=== PATIENT | female | born 1975 | race Caucasian/White ===

== ENCOUNTER → 2020-03-31 | Outpatient (CLI) | payer OTHER ==
[2020-03-31 09:19] VITALS: BP 125/78; PULSE 71; RESP 18; TEMP 98.2
--- NOTE | 2020-03-31 10:58 | P.GSHP ---
History of Present Illness H&P Date: 03/31/20 Chief Complaint: right breast cancer, stage 1A right breast invasive ductal cancer [id number] Sulema is a 44 year old white female with a biopsy proven right breast cancer at the 3 oclock position. She is seen in consultation for Dr. Cisneros. She states that she recently felt some increased fullness in her right breast in the lower inner quadrant area. A bilateral mammogram was done in February the left breast remains stable however, additional views were requested of the right breast as well as an ultrasound. On the ultrasound a 1.7 x 1.3 x 1.1 cm lesion was noted in the approximately 4 to 5 o'clock position. Core biopsy of this was performed and it was positive for invasive ductal carcinoma. The lesion is ER/NE positive, HER-2 pending and grade 2. The patient gets mammograms every 6 months for the past three years for screening. She has never had a biopsy until now. She has not had any trauma or infection in the past. She is not complaining of any pain or nipple discharge. Caffeine: coffee 4 cups/day Nicotine: stopped 1 week ago, 1 pack/2 weeks for 15 years theobromine: daily hormones: none; had a hysterectomy and one ovary done for endometriosis at 41 Family History: mother: lung and brain cancer, she was a smoker maternal aunt: breast cancer maternal aunt: ovarian cancer Hormonal History: menarche: 11 Miscarriage 1, breast fed: no, age at first : 33 hysterectomy at 41 for endometriosis control pills: 25 years hormones: none Surgical history: Hysterectomy and one ovary removed for endometriosis 3 laparoscopic exams prior to hysterectomy Appendectomy Medical history: none Social History: nicotine: Used to smoke 1 pack every 2 weeks for 15 years but stopped approximately a week ago Alcohol: 1 glass of wine/day drugs: none - Constitutional Constitutional: Reports sweats - EENT Eyes: bilateral as per HPI, denies pain Ears: right: tinnitus, deny: decreased hearing Ears, nose, mouth and throat: Reports headache - Breasts Breasts: bilateral: as per HPI - Cardiovascular Cardiovascular: Denies chest pain, Denies shortness of breath - Respiratory Comment: former smoker Respiratory: Denies cough, Denies 7 - Gastrointestinal Comment: GERD Gastrointestinal: Reports constipation, Denies abdominal pain, Denies diarrhea, Denies nausea, Denies vomiting - Genitourinary (Female) Genitourinary: Denies dysuria, Denies hematuria - Menstruation Menstruation: Reports post hysterectomy - Musculoskeletal Musculoskeletal: Reports myalgias - Integumentary Integumentary: Reports rash - Neurological Neurological: Denies numbness, Denies weakness - Psychiatric Psychiatric: Reports anxiety, Denies depression - Endocrine Endocrine: Reports weight change - Hematologic/Lymphatic Comment: none - Allergic/Immunologic Allergic/Immunologic: Reports seasonal allergies Past Medical History History of Any Multi-Drug Resistant Organisms: None Reported Smoking Status: Current some day smoker Medications and Allergies Home Medications Medication Instructions Recorded Confirmed Type Duterra Essential Oil 1 tab PO DAILY 03/31/20 03/31/20 History Fish Oil/Dha/Epa [Fish Oil 1,200 1 each PO DAILY 03/31/20 03/31/20 History mg Fish Oil] Multivit with Calcium,Iron,Min 1 each PO DAILY 03/31/20 03/31/20 History [Women's Multivitamin] Allergies Allergy/AdvReac Type Severity Reaction Status Date / Time codeine Allergy Swelling Unverified 03/31/20 09:15 Sulfa (Sulfonamide Allergy Swelling Unverified 03/31/20 09:15 Antibiotics) Surgical - Exam Vital Signs Temp Pulse Resp BP Pulse Ox 98.2 F 71 18 125/78 98 03/31/20 09:15 03/31/20 09:15 03/31/20 09:15 03/31/20 09:15 03/31/20 09:15 BMI 32.4 - General well developed, well nourished, no distress - Eyes normal ocular movement - ENT normal pinna, normal mucosa - Neck no masses, trachea midline - Respiratory normal expansion, normal respiratory effort - Cardiovascular Rhythm: regular Heart Sounds: normal: S1, S2 - Abdomen Abdomen: soft - Integumentary normal turgor - Neurologic no disoriented, no combative - Musculoskeletal normal gait - Psychiatric oriented to time, oriented to person, oriented to place, speech is normal, memory intact breast exam: BRA: 38D inspection: bilateral grade 2/3 ptosis, right breast ecchymosis approximately 4 o'clock position palpation: right breast: Multi-positional exam dense breast, fibrocystic changes, fullness lower inner quadrant, ecchymosis possible small hematoma Right axilla: No adenopathy of concern left breast: Multiple positional exam dense breasts, no dominant masses or nodules of concern Left axilla: No adenopathy of concern Results Mammogram and ultrasound reviewed with radiology Assessment and Plan Assessment: Impression: 1. Stage IA right breast cancer lower inner quadrant 2. Fibrocystic breast changes 3. Family history of breast cancer 4. Probable perimenopausal/patient status post hysterectomy Plan: 1. genetic testing 2. Presentation of case at tumor board 3. Surgical options discussed with the patient 4. appointment with plastic surgery 5. medical clearance Dr. Cisneros 6. schedule for surgery The results of the biopsy were discussed with the patient. Surgical options such as lumpectomy and radiation versus mastectomy plus or minus reconstruction were discussed with the patient. At this time we are scheduling an appointment with plastic surgery. The patients case is going to be presented at tumor board. I've also suggested genetic testing and this is going to be performed. Depending on the results of genetic testing the patient will decide whether she would rather have a lumpectomy or mastectomy and this will be scheduled in the near future. Cc: Dr. Cisneros encounter 50 minutes, > 50% of time in planning and counselling
== END | disposition home or self-care (01) ==
LOC: WWCWWP 08:41
PROVIDERS: ATTEND Surgery
DX: Z53.9 Procedure and treatment not carried out, unspecified reason (principal)

== ENCOUNTER → 2020-04-18 | Outpatient (CLI) | payer OTHER ==
--- NOTE | 2020-05-01 07:10 | BMR ---
EXAMINATION TYPE: MR breast BILAT wo/w con DATE OF EXAM: 04/18/2020 COMPARISON: Outside 3-D screening mammogram February 26, 2020 BI-RADS 0. Outside diagnostic 3-D right breast mammogram March 13, 2020 BI-RADS 0. Outside diagnostic right breast ultrasound March 13 BI-RADS 4 HISTORY: Right breast cancer on ultrasound-guided core biopsy March 20, 2020, lump in right breast. TECHNIQUE: A series of fat and water weighted images in the long and short axis views of both breasts are obtained in conjunction with dynamic contrast MRI with subtraction technique. The patient was i njected with 7.3 mL intravenous Gadavist gadolinium contrast. Three-dimensional and additional post processing imaging is created on independent workstation and reviewed during official interpretation of this study. FINDINGS: Heterogeneously dense fibroglandular tissue bilaterally in both breasts is redemonstrated. T2 and STIR-weighted images show some small scattered thin-walled cysts on background of heterogeneou sly dense tissue, slightly larger cysts in left breast versus right breast. Benign-appearing bilatera l axillary lymph nodes are seen. Dynamic postcontrast imaging shows no suspicious intermammary adenop athy bilaterally on delayed images. There is mild symmetric background enhancement noted. With regards to the left breast, no suspicious skin thickening is seen. A few small foci of enhanceme nt. No pathologic enhancement or enhancing mass is clearly identified. The chest wall is intact. With regards to the right breast there is artifact from biopsy clip overlying the anterior slight inf erior aspect of spiculated enhancing mass in the lower inner quadrant measuring 2.1 AP diameter x 1.7 cm transversely image 218 series 702. Craniocaudal length roughly 2.2 cm. No additional suspicious e nhancement or enhancing masses. Some small areas of glanular enhancement, largest laterally over righ t breast image 67 measures 7 x 4 mm. These show benign progressive enhancement on dynamic postcontras t imaging. No abnormal skin thickening. The chest wall is intact. Atelectatic change or scarring suspected in anterior right lung base. Incidental note is made of multiple small stones in gallbladder. IMPRESSION: MRI demonstration of biopsy-proven malignancy lower inner quadrant anteriorly right breas t measuring up to 2.2 cm in size on MRI. No multicentric malignancy identified. No MRI evidence for i nvasive malignancy in the left breast. BI-RADS 6 biopsy-proven cancer right breast. BI-RADS 2 benign findings left breast. Recommendation: Appropriate surgical and oncologic management of right breast malignancy.
== END | disposition home or self-care (01) ==
LOC: RADMRIMAIN 17:49
PROVIDERS: ATTEND Surgery
DX: R92.8 Other abnormal and inconclusive findings on diagnostic imaging of breast (principal)
CPT/HCPCS: 77049; C8937; A9585

== ENCOUNTER → 2020-05-01 | Outpatient (CLI) | payer OTHER ==
[2020-05-01 09:03] VITALS: BP 132/64; PULSE 67; RESP 18; TEMP 98.6
--- NOTE | 2020-05-01 09:58 | P.PN ---
Subjective Progress Note Date: 05/01/20 Principal diagnosis: invasive ductal cancer stage 1A right breast invasive ductal cancer [id number]-G2 Sulema is a 44 year old white female with a biopsy proven right breast cancer at the 3 oclock position. She is seen in consultation for Dr. Cisneros. She states that she recently felt some increased fullness in her right breast in the lower inner quadrant area. A bilateral mammogram was done in February the left breast remains stable however, additional views were requested of the right breast as well as an ultrasound. On the ultrasound a 1.7 x 1.3 x 1.1 cm lesion was noted in the approximately 4 to 5 o'clock position. Core biopsy of this was performed and it was positive for invasive ductal carcinoma. The lesion is ER/RI positive, HER-2 pending and grade 2. The patient gets mammograms every 6 months for the past three years for screening. She has never had a biopsy until now. She has not had any trauma or infection in the past. She is not complaining of any pain or nipple discharge. Genetic testing was done and this was negative. She was seen by medical oncology DR. Childress she was located in [facility], however patient wishes her care to be closer to home and has an appointment with Dr. Contreras next week. An MRI was performed on . This revealed biopsy-proven right breast cancer, and benign findings in the left breast. No multicentric malignancy was identified. It is felt that the patient after the procedure will have an Oncotype DX performed on the tumor to determine whether or not she would need any chemotherapy. Because this is hormone receptor positive she will be recommended to have hormonal therapy. The radiation therapy would be recommended if she chose a lumpectomy, and if she were to choose a mastectomy there is a remote chance she would also need radiation. Caffeine: coffee 4 cups/day Nicotine: stopped 1 week ago, 1 pack/2 weeks for 15 years theobromine: daily hormones: none; had a hysterectomy and one ovary done for endometriosis at 41 Family History: mother: lung and brain cancer, she was a smoker maternal aunt: breast cancer maternal aunt: ovarian cancer Hormonal History: menarche: 11 Miscarriage 1, breast fed: no, age at first : 33 hysterectomy at 41 for endometriosis control pills: 25 years hormones: none Surgical history: Hysterectomy and one ovary removed for endometriosis 3 laparoscopic exams prior to hysterectomy Appendectomy Medical history: none Social History: nicotine: Used to smoke 1 pack every 2 weeks for 15 years but stopped approximately a week ago Alcohol: 1 glass of wine/day drugs: none - Constitutional Constitutional: Reports sweats - EENT Eyes: bilateral as per HPI, denies pain Ears: right: tinnitus, deny: decreased hearing Ears, nose, mouth and throat: Reports headache - Breasts Breasts: bilateral: as per HPI - Cardiovascular Cardiovascular: Denies chest pain, Denies shortness of breath - Respiratory Comment: former smoker Respiratory: Denies cough - Gastrointestinal Comment: GERD Gastrointestinal: Reports constipation, Denies abdominal pain, Denies diarrhea, Denies nausea, Denies vomiting - Genitourinary (Female) Genitourinary: Denies dysuria, Denies hematuria - Menstruation Menstruation: Reports post hysterectomy - Musculoskeletal Musculoskeletal: Reports myalgias - Integumentary Integumentary: Reports rash - Neurological Neurological: Denies numbness, Denies weakness - Psychiatric Psychiatric: Reports anxiety, Denies depression - Endocrine Endocrine: Reports weight change - Hematologic/Lymphatic Comment: none - Allergic/Immunologic Allergic/Immunologic: Reports seasonal allergies Objective - Vital Signs Vital signs: Vital Signs Temp 98.6 F 05/01/20 09:01 Pulse 67 05/01/20 09:01 Resp 18 05/01/20 09:01 BP 132/64 05/01/20 09:01 Pulse Ox 97 05/01/20 09:01 Intake & Output 04/30/20 05/01/20 05/01/20 18:59 06:59 18:59 Weight 81.647 kg - Exam BMI 31.9 - Constitutional General appearance: Present: average body habitus - EENT Eyes: Present: EOMI ENT: Present: hearing grossly normal - Neck Neck: Present: normal ROM - Respiratory Respiratory: bilateral: CTA - Cardiovascular Rhythm: regular Heart sounds: normal: S1, S2 - Gastrointestinal General gastrointestinal: Present: normal bowel sounds, soft - Integumentary Integumentary: Present: normal turgor - Musculoskeletal Musculoskeletal: Present: gait normal - Psychiatric Psychiatric: Present: A&O x's 3, appropriate affect, intact judgment & insight - Additional findings Additional findings: Breast exam: BRA: 38D inspection: right breast larger than left breast, bilateral grade 2/3 ptosis palpation: Right breast: Multiple positional exam approximately 2 cm mass in the lower inner quadrant, no other dominant masses or nodules of concern, fibrocystic changes Right axilla: No adenopathy of concern Left breast: Multiple positional exam fibrocystic changes, no dominant masses or nodules of concern Left axilla: No adenopathy of concern Assessment and Plan Assessment: Impression: 1. Stage IA right breast cancer lower inner quadrant 2. Genetic testing negative 3. MRI does not show multifocal disease 4. Patient did not meet with plastic surgery, she opted not to have reconstruction if she were to choose a bilateral mastectomy Plan: 1. Right breast needle localization partial mastectomy, sentinel node injection, sentinel node biopsy, possible axillary node dissection, mastopexy, onco-plastic tissue transfer The risks and benefits of the procedure were discussed with the patient. Risks include but are not limited to bleeding, infection, reaction to the anesthetic. If margins were to be positive she would need a reexcision. Additionally sentinel node biopsy will be performed if sentinel nodes were to be positive she would with Radiation to the axilla and/or possibly return to the operating room for removal of more lymph nodes. The patient understands these things and wishes to proceed. Again after discussion she has opted for a lumpectomy rather than a mastectomy. CC: Dana Bradley N.P. encounter 45 minutes time spent in physical examination, reviewing medical records, and counseling.
== END | disposition home or self-care (01) ==
LOC: WWCWWP 08:50
PROVIDERS: ATTEND Surgery
DX: Z53.9 Procedure and treatment not carried out, unspecified reason (principal)

== ENCOUNTER 2020-05-06 11:26 | Day surgery (SDC) | payer OTHER ==
[2020-04-30 15:26] VITALS: BMI 31.8
[~2020-05-06 11:26] MED LIST: DEXAMETHASONE SOD PHOSPHATE 4 MG/ML 1 ML VIAL IV ONE; HEPARIN SODIUM,PORCINE 5,000 UNIT/ML 1 ML VIAL SQ PRN; LACTATED RINGERS 1,000 ML IV SCH; LIDOCAINE 1% (10MG/ML) FOR IV START INTRADERMA PRN; Pre Op ABX Message 1 EACH MISC MISCELLANE ONE
[2020-05-06 11:47] VITALS: RESP 16
[2020-05-06] MEDS ORDERED: ALPRAZolam 0.5 MG TAB ONE (11:54)
[2020-05-06] MEDS ORDERED: ALPRAZolam 0.5 MG TAB PO ONE (11:56)
[2020-05-06] MEDS ORDERED: LIDOCAINE 1% INJ 10MG/ML (20 ML MDV) SQ ONE (12:32)
--- NOTE | 2020-05-06 12:35 | P.NAPBC ---
NAPBC Queries - NAPBC Queries Was patient's case review presented at [facility] tumor board? If no, comment.: Yes Was patient's pathology reviewed at [facility]? If no, comment.: Yes Was breast conservation surgery offered? If no, comment.: Yes Was sentinel node biopsy offered? If no, comment.: Yes Was diagnosis confirmed by percutaneous core biopsy? If no, comment.: Yes Is patient mastectomy patient?: No Was a preop referral to reconstructive surgeon offered?: Yes Clinical Stage: stage IA
[2020-05-06] MEDS ORDERED: LIDOCAINE 1% INJ 10MG/ML (20 ML MDV) ONE (13:15)
[2020-05-06] MEDS ORDERED: PROPOFOL 10 MG/ML 20 ML VIAL IV ONE (13:15)
[2020-05-06] MEDS ORDERED: SUCCINYLCHOLINE CHLORIDE 100 MG/5 ML SYR IV ONE (13:15)
[2020-05-06] MEDS ORDERED: MIDAZOLAM 2 MG/2 ML VIAL ONE (13:15)
[2020-05-06] MEDS ORDERED: HYDROmorphone (PF) 1 MG/ML ONE (13:15)
[2020-05-06] MEDS ORDERED: fentaNYL (PF) 50 MCG/ML 2 ML AMP ONE (13:15)
[2020-05-06] MEDS: ONDANSETRON 4 MG/2 ML VIAL IVP ONE ×2 (13:21→16:59)
[2020-05-06] MEDS ORDERED: SODIUM CHLORIDE 0.9% 50 ML with ceFAZolin 2,000 MG IV ONE ×2 (13:52)
--- NOTE | 2020-05-06 14:10 | NM ---
EXAMINATION TYPE: NM sentinel node injection DATE OF EXAM: 05/06/2020 COMPARISON: NONE INDICATION: Abnormal mammogram. Informed consent was obtained. A timeout was performed. The area around the right nipple was cleansed with alcohol. In a single dose, a total of 500 uCi Te chnetium 99m Tilmanocept was injected. The patient tolerated the procedure very well. IMPRESSIONS: 1. Successful injection for sentinel node evaluation.
[2020-05-06] MEDS ORDERED: LACTATED RINGERS 1,000 ML IV ONE (15:05)
--- NOTE | 2020-05-06 16:40 | P.OP ---
Date of Procedure: 05/06/20 Preoperative Diagnosis: right breast invasive ductal carcinoma Postoperative Diagnosis: Same Procedure(s) Performed: Right breast sentinel node biopsy, needle localization excisional lumpectomy, new margins obtained anterior, medial, superior, and inferior, onco-plastic tissue transfer 68 cm, donut mastopexy Anesthesia: VICENTE Surgeon: Krys Leon Estimated Blood Loss (ml): 20 IV fluids (ml): 1,100 Pathology: other ([place] node, breast tissue) Condition: stable Disposition: same day Indications for Procedure: Right breast invasive ductal carcinoma Operative Findings: Dense breast tissue Description of Procedure: 1. [place] node biopsy of deep no right axilla 2. Needle localization lumpectomy right breast 3. Margins evaluated and new margins obtained anterior medial superior and inferior, posterior dissection was onto the chest wall 4. onco-plastic tissue transfer 68 cm 5. Donut mastopexy And is a 45-year-old white female who was diagnosed with a right breast invasive ductal carcinoma via the biopsy. After preoperative consultation she wished to undergo lumpectomy if possible. The patient was first seen in radiology for injection for sentinel node was performed. Additionally the needle was placed for localization of the tumor. She was then brought to the operative suite. Following induction of anesthesia interrogation of the axilla revealed that the radiotracer had traveled to this site. The right breast and axilla were then prepped and draped in a sterile fashion. The axilla was approached initially. Using the neoprobe the area of greatest radioactivity was identified. An incision was made and the dissection was carried to the deep axillary tissue. The deep axillary node was identified which was radioactive. The node was removed using the Harmonic scalpel. Following this the 10 second count was noted to be 1800 on the node. The background 10 second count was noted to be 21 at 10 seconds. The axilla was carefully evaluated for hemostasis. The deep tissues were closed using 3-0 Vicryl suture. The skin was closed using a 3-0 Vicryl subcutaneous stitch followed by a 4-0 Monocryl. Steri-Strips were applied. The area of the breast was then approached. A donut mastopexy incision placement was marked in the preoperative area. The new nipple areolar complex was to be elevated approximately 2 cm. This is an eccentric donut mastopexy. The skin was de-epithelialized. The rest tissue was entered and the medial and superior aspect of the de-epithelialized tissue. Careful dissection was performed down to the shaft of the needle and surrounding tissue was excised. This tissue was approximately 8 x 5 cm in size. The patient was painted for orientation. Radiograph of the specimen revealed the area of concern had been removed. It was felt that the margins were close anteriorly and medially superiorly and inferiorly. Therefore the margins were obtained in all of these sites and these were painted for orientation. Following this the cavity was then evaluated for hemostasis. Titanium clips were used to silas the cavity. After we were assured that hemostasis was attained the superior pedicle was mobilized 5 cm x 2 cm for 10 centimeters squared. The inferior pedicle was likewise mobilized 5 cm x 2 cm to 10 cm. The total onco plastic tissue mobilization was 68 square centimeters. The deep tissues were brought together using 3-0 Vicryl suture after assured that hemostasis was attained. Following this the subcutaneous tissue was closed using a 3-0 Vicryl suture. A wagon wheel running 4 [place] was placed. Following this a 4-0 Monocryl subcuticular suture was placed. This was followed by a 4-0 nylon suture. The patient tolerated the procedure in stable condition. All instrument and sponge counts were correct at the end of the case.
--- NOTE | 2020-05-06 16:41 | P.DS ---
Providers Attending physician: Krys Leon Primary care physician: Anirudh Cisneros Plan - Discharge Summary Discharge Rx Participant: Yes New Discharge Prescriptions: No Action Duterra Essential Oil 1 tab PO DAILY Multivitamins, Thera [Multivitamin (formulary)] 1 tab PO DAILY Atorvastatin [Lipitor] 40 mg PO HS Moh[place]-3 Fatty Acids [[place]-3] 1,000 mg PO DAILY Discharge Medication List Duterra Essential Oil 1 tab PO DAILY 03/31/20 [History] Atorvastatin [Lipitor] 40 mg PO HS 04/30/20 [History] Multivitamins, Thera [Multivitamin (formulary)] 1 tab PO DAILY 04/30/20 [History] [place]-3 Fatty Acids [[place]-3] 1,000 mg PO DAILY 04/30/20 [History] Follow up Appointment(s)/Referral(s): Krys Leon MD [STAFF PHYSICIAN] - 1 Week Activity/Diet/Wound Care/Special Instructions: do not drive for 24 hours wear bra at all times may shower after 48 hours Discharge Disposition: HOME SELF-CARE
[2020-05-06 16:45] VITALS: TEMP 97
[2020-05-06] MEDS ORDERED: HYDROmorphone 0.5 MG/0.5 ML SYRINGE IVP ONE (16:56)
[2020-05-06] MEDS ORDERED: HYDROcodone/APAP 5-325MG 1 EACH TAB PO ONE (17:30)
[2020-05-06] MEDS ORDERED: HYDROcodone/APAP 5-325MG 1 EACH TAB ONE (17:31)
[2020-05-06 17:53] VITALS: BP 131/85; PULSE 78
--- NOTE | 2020-05-06 17:59 | MM ---
EXAMINATION TYPE: MG pre op needle loc RT DATE OF EXAM: 05/06/2020 COMPARISON: Digital mammogram 03/20/2020, MRI report 04/18/2020 CLINICAL HISTORY: Invasive ductal carcinoma TECHNIQUE: Needle localization with wire placement and surgical excision of area of concern in the right breast. FINDINGS: The procedure of needle localization with wire placement for surgical excision was explained to the patient. Risk, benefits, and alternatives were discussed. An informed consent was then obtained. A timeout was performed. The overlying skin was prepped and draped in usual sterile fashion. Lidocaine 1% was used as anesthetic into the skin and subcutaneous tissue up to the level of area of concern. A 7 cm needle was used. This was placed via a medial approach under mammographic guidance. Following the initial anesthetization patient had pain the needle reanesthetized with 1% lidocaine was performed. Placement needle at this time was painless. Subsequent 90 degrees mammogram show the needle to be in satisfactory position relative to the targeted area. The wire was placed through the needle and the needle was withdrawn. The wire was fixed to patient's skin. Images were marked for surgeon. Placement and approach were discussed with the referring physician in person. The patient tolerated the procedure well without any immediate complication. Specimen: The wire and the targeted core marker are identified within the specimen mammogram. IMPRESSION: 1. Successful wire localization and excision. Recommendations: 1. Recommendations are pending pathology results. Pathology Results: Malignant A. SENTINEL LYMPH NODE, RIGHT BREAST, BIOPSY: Lymph node negative for metastasis. CK7 and DARLING immunoperoxidase stains are confirmatory (controls appropriate). B. PALPABLE LYMPH NODE, RIGHT BREAST, BIOPSY: Lymph node negative for metastasis. C. RIGHT BREAST, NEW ANTERIOR MARGIN, EXCISION: Benign breast with fibrocystic changes. D. RIGHT BREAST, NEW MEDIAL MARGIN, EXCISION: Benign breast tissue. E. RIGHT BREAST, NEW INFERIOR MARGIN, EXCISION: Benign breast tissue. F. RIGHT BREAST, NEW SUPERIOR MARGIN, EXCISION: Benign breast tissue with fibrocystic changes. G. RIGHT BREAST, LUMPECTOMY: Invasive moderately differentiated ductal carcinoma and Grade I-II DCIS, margins negative for invasive malignancy or DCIS. See Surgical Pathologic Cancer Case Summary. H. DE-EPITHELIALIZED TISSUE, RIGHT BREAST: Benign skin and subcutaneous tissue. Recommendation Surgical consult of the right breast. ANDRES
== END 2020-05-06 18:20 | disposition home or self-care (01) ==
LOC: OR 11:26
PROVIDERS: ATTEND Surgery
DX: C50.311 Malignant neoplasm of lower-inner quadrant of right female breast (principal); Z87.891 Personal history of nicotine dependence; E78.5 Hyperlipidemia, unspecified; E66.9 Obesity, unspecified; Z68.34 Body mass index [BMI] 34.0-34.9, adult; Z97.2 Presence of dental prosthetic device (complete) (partial); Z90.710 Acquired absence of both cervix and uterus; Z90.721 Acquired absence of ovaries, unilateral; Z90.89 Acquired absence of other organs; Z80.1 Family history of malignant neoplasm of trachea, bronchus and lung; Z80.3 Family history of malignant neoplasm of breast; Z80.41 Family history of malignant neoplasm of ovary; Z80.8 Family history of malignant neoplasm of other organs or systems; Z79.899 Other long term (current) drug therapy; Z88.5 Allergy status to narcotic agent; Z88.2 Allergy status to sulfonamides
CPT/HCPCS: 19301; 38525; 19316; 14301; 14302; 88305; 88342; 88307; 88341; 76098; 38792; A9520; J2250; J1644; J1100; J2405; J0690; J2001; J3010; J1170 ×2; J0330; J2704

== ENCOUNTER → 2020-05-15 | Outpatient (CLI) | payer OTHER ==
[2020-05-15 10:56] VITALS: BP 121/82; PULSE 73; RESP 18; TEMP 98
--- NOTE | 2020-05-15 11:14 | P.PN ---
Progress Note - Text Progress Note Date: 05/15/20 Sulema is a 45 year old white female status post right breast lumpectomy via a donut mastopexy incision and sentinel node biopsy. The lymph nodes were all negative, and the tumor was noted to be 2.2 cm in greatest dimension but all margins were negative. DCIS was present but was completely excised. Physical exam: Lungs clear: Heart: Regular rate and rhythm Incision: Incisions clean and dry, the right breast does appear to be swollen but no evident seroma to aspirate Impression: 1. Right breast lumpectomy and sentinel node biopsy on 3to21 patient doing well postoperative 2. Follow-up radiation oncology 3. Follow-up medical oncology 4. Follow up here in 1 weeks for suture removal 5. Continue to wear bra 6. Vitamin C and protein supplements Cc: Dr. Cisneros N.Cortney Pearce
== END ==
LOC: WWCWWP 10:43
PROVIDERS: ATTEND Surgery
DX: Z86.000 Personal history of in-situ neoplasm of breast (principal); Z51.0 Encounter for antineoplastic radiation therapy; Z79.899 Other long term (current) drug therapy; Z98.890 Other specified postprocedural states

== ENCOUNTER → 2020-06-19 | Outpatient (CLI) | payer OTHER ==
--- NOTE | 2020-06-19 11:44 | P.PN ---
Progress Note - Text Progress Note Date: 06/19/20 And is a 45-year-old white female status post right breast lumpectomy via donut mastopexy incision and sentinel node biopsy. This was performed and 3to21. The lymph nodes were all negative, and the tumor was noted to be 2.2 cm in greatest dimension but all margins were negative. DCIS was present but was completely excised. She was seen by medical oncology and an Oncotype DX test was ordered the results were 14 and she is not recommended to have chemotherapy. She was seen today in radiation oncology and noted to have a seroma in the right breast. She comes today for aspiration of the seroma. She was unable to be seen in the last several weeks secondary to the fact that she developed a cold that it wasn't quarantined. Physical exam: Incision clean and dry the right breast is swollen with evidence of a seroma at at this time. There is some mild ecchymosis the lower inner quadrant which is resolving. She does have some blistering of the periareolar incision at the medial aspect. Impression: 1. Right breast lumpectomy sentinel node biopsy and 32 21 2. Patient followed with radiation oncology today 3. Oncotype does not recommend chemotherapy secondary to low Oncotype score 4. Patient to have have his sutures removed 5. Continue to wear bra 6. Vitamin C and protein supplements The area of seroma in the left breast was recommended to be aspirated. The breast was prepped using alcohol. 18-gauge needle on a 20 mL syringe was used to aspirate the area. A brown fluid was a contained 40 mL with resolution of the seroma. The area of blistering on the periareolar incision was reinforced using a 4-0 nylon suture. The patient will have half of her sutures removed and Steri-Strips applied. She will follow up here next week.
== END ==
DX: L76.34 Postprocedural seroma of skin and subcutaneous tissue following other procedure (principal)

== ENCOUNTER → 2020-06-26 | Outpatient (CLI) | payer OTHER ==
--- NOTE | 2020-06-26 11:53 | P.PN ---
Progress Note - Text Progress Note Date: 06/26/20 And is a 45-year-old white female status post right breast lumpectomy via donut mastopexy incision and sentinel node biopsy. This was performed and 3to21. The lymph nodes were all negative, and the tumor was noted to be 2.2 cm in greatest dimension but all margins were negative. DCIS was present but was completely excised. She was seen by medical oncology and an Oncotype DX test was ordered the results were 14 and she is not recommended to have chemotherapy. She was seen today in radiation oncology and noted to have a seroma in the right breast. She came last week for aspiration of the seroma. She was unable to be seen in the last several weeks prior to this secondary to the fact that she developed COVID and was quarantined. Last week approximately 240 mL of fluid were aspirated from the lumpectomy site. Patient complains of some discomfort in her right arm. She also states that the lateral aspect of her right breast feels swollen. She has not had any fever or chills. She has not had any drainage from her incisions. Physical exam: Incision clean and dry the right with some mild swelling in the lateral aspect. There does appear to be a small seroma in the medial aspect. The blistering which was seen last week is resolved. right arm: 15 inches right forearm: 15 inches left arm: 14 1/4 left forearm: 11 14 Impression: 1. Right breast lumpectomy sentinel node biopsy on 2. Patient followed with radiation oncology next week 3. Oncotype does not recommend chemotherapy secondary to low Oncotype score 4. Patient had 1/2 sutures removed 5. Continue to wear bra 6. Vitamin C and protein supplements 7. Attempted aspiration of seroma right breast 8. Ultrasound of the right breast lateral aspect to see if there is any seroma which would warrant aspiration The area of seroma in the left breast was recommended to be aspirated. The breast was prepped using alcohol. 18-gauge needle on a 20 mL syringe was used to aspirate the area. A brown fluid was a contained 35 mL with resolution of the seroma. She will follow up here next week.
[2020-06-26 13:07] VITALS: BP 128/82; PULSE 78; RESP 18; TEMP 98.3
--- NOTE | 2020-06-27 10:56 | USB ---
Reason for exam: clinical finding. History: Patient has history of breast cancer at age 45. Lumpectomy of the right breast, May 12, 2020. Malignant MG pre op needle loc RT of the right breast, May 06, 2020. US Breast Limited RT Right complete breast ultrasound includes all four quadrants, the retroareolar region and axilla. Finding demonstrates a 2.3 x 1.3 x 4.4cm oval, lobular, fluid collection at 4 o'clock, thin walled with internal echoes nonspecific suspect small post surgical seroma. These results were verbally communicated with the patient and result sheet given to the patient on 06/26/20. ASSESSMENT: Benign, BI-RAD 2 RECOMMENDATION: Clinical management of the right breast. Manage patient on a clinical basis.
== END | disposition home or self-care (01) ==
LOC: WWCWWP 11:27
PROVIDERS: ATTEND Surgery
DX: L76.34 Postprocedural seroma of skin and subcutaneous tissue following other procedure (principal); Z85.3 Personal history of malignant neoplasm of breast

== ENCOUNTER → 2020-07-04 | Outpatient (CLI) | payer OTHER ==
[2020-07-04 14:10] VITALS: BP 131/84; PULSE 67; RESP 18; TEMP 98.2
--- NOTE | 2020-07-04 14:22 | P.PN ---
Progress Note - Text Progress Note Date: 07/04/20 And is a 45-year-old white female status post right breast lumpectomy via donut mastopexy incision and sentinel node biopsy. This was performed and 3221. The lymph nodes were all negative, and the tumor was noted to be 2.2 cm in greatest dimension but all margins were negative. DCIS was present but was completely excised. She was seen by medical oncology and an Oncotype DX test was ordered the results were 14 and she is not recommended to have chemotherapy. She was seen by radiation oncology and noted to have a seroma in the right breast. She was seen for aspiration of the seroma. She was unable to be seen in the last several weeks prior to this secondary to the fact that she developed COVID and was quarantined. Approximately 240 mL of fluid were aspirated from the lumpectomy site. Last week approximately 35 mL of brown fluid was aspirated. She had an ultrasound performed as well which showed a very small fluid collection at the 4 o'clock position of the right breast. On to today's evaluation she does not have any evidence of recurrent seroma. Patient complained of some discomfort in her right arm. She also stated that the lateral aspect of her right breast feels swollen. She has not had any fever or chills. She has not had any drainage from her incisions. Physical exam: Incision clean and dry, no evidence seroma. Impression: 1. Right breast lumpectomy sentinel node biopsy on 2. Patient followed with radiation oncology 3. Oncotype does not recommend chemotherapy secondary to low Oncotype score 4. Patient remained her sutures removed 5. Continue to wear bra 6. Vitamin C and protein supplements 7. Attempted aspiration of seroma right breast no seroma present on today's examination 8. Follow-up 1 month An attempted aspiration of the seroma in the medial aspect of the breast was performed. Alcohol was used to clean the breast. A 21-gauge needle on an 12 mL syringe was inserted into the area of mild fluctuance no fluid was obtained.
== END ==
LOC: WWCWWP 13:52
PROVIDERS: ATTEND Surgery
DX: N63.10 Unspecified lump in the right breast, unspecified quadrant (principal); Z98.890 Other specified postprocedural states

== ENCOUNTER 2020-08-07 16:31 | Emergency (ER) | payer OTHER ==
[2020-08-07 16:38] VITALS: BP 132/78; PULSE 69; RESP 18; TEMP 97.9
[2020-08-07 17:33] LABS: Basophils % (A) 1 %; Eosinophils # (A) 0.1 k/uL (0-0.7); Eosinophils % (A) 2 %; HCT 41.7 % (34.0-46.0); HGB 14.8 gm/dL (11.4-16.0); Lymphocytes # (A) 1.1 k/uL (1.0-4.8); Lymphocytes % (A) 11 %; MCHC 35.5 g/dL (31.0-37.0); Mean Platelet Volume 6.9; Monocytes # (A) 0.4 k/uL (0-1.0); Monocytes % (A) 4 %; Neutrophils # (A) 7.9 k/uL (1.3-7.7); Neutrophils % (A) 82 %; Platelet Count 187 k/uL (150-450); RBC 4.64 m/uL (3.80-5.40); RDW 13.4 % (11.5-15.5); WBC 9.6 k/uL (3.8-10.6)
[2020-08-07 17:46] LABS: INR 0.9 (<1.2); Partial Thromboplastin Time 25.1 sec (22.0-30.0)
[2020-08-07] MEDS ORDERED: KETOROLAC 15 MG/ML 1 ML VIAL IVP STA (17:50)
[2020-08-07 17:51] LABS: ALT 66 U/L (4-34); AST 42 U/L (14-36); African American GFR (CKD) >90 (>60 ml/min/1.73 sqM); Albumin 4.8 g/dL (3.5-5.0); Alkaline Phosphatase 126 U/L (38-126); Anion Gap 10 mmol/L; Blood Urea Nitrogen 14 mg/dL (7-17); Carbon Dioxide 23 mmol/L (22-30); Chloride 103 mmol/L (98-107); Glucose 107 mg/dL (74-99); Non-African American GFR(CKD) >90 (>60 ml/min/1.73 sqM); Sodium 136 mmol/L (137-145); Total Bilirubin 0.3 mg/dL (0.2-1.3); Total Protein 7.9 g/dL (6.3-8.2)
--- NOTE | 2020-08-07 17:57 | CT ---
EXAMINATION TYPE: CT brain wo con DATE OF EXAM: 08/07/2020 COMPARISON: None HISTORY: Headache. CT DLP: 1114.4 mGycm. Automated Exposure Control for Dose Reduction was Utilized. TECHNIQUE: CT scan of the head is performed without contrast. FINDINGS: There is no acute intracranial hemorrhage, mass effect, or midline shift identified. The ventricles and sulci are within normal limits in size. There is mild cortical atrophy. Suspect ther e is patchy. Ventricular low attenuation. The globes are intact and the visualized sinuses are clear. IMPRESSION: No acute intracranial hemorrhage, mass effect, or midline shift is seen. Question some w louisa matter demyelination, cortical atrophy, brain MRI may be of benefit
--- NOTE | 2020-08-07 17:58 | ED ---
Headache HPI - General Chief Complaint: Headache Stated Complaint: Migraine Time Seen by Provider: 08/07/20 17:28 Source: patient, RN/MD, RN notes reviewed Mode of arrival: ambulatory Limitations: no limitations - History of Present Illness Initial Comments: Is a 45-year-old female history of a invasive ductal carcinoma of the right breast status post donut mastopexy who presents with complaints of right-sided headache some visual changes. She states this started 2 nights ago she was at a ball game when she got up and suddenly had some pain going down into the right side of her neck. He has some numbness her left fingertip she'll have since resolved but she was having some floaters which is since resolved and some visual problems the left side of her visual field which is since resolved. She states the headaches even getting better at this time no focal deficits or upper or lower extremities. She was seen by her doctor and sent here for further evaluation MD Complaint: headache - Related Data Previous Rx's Medication Instructions Recorded Ketorolac [Toradol] 10 mg PO Q6HR #20 tab 08/07/20 Orphenadrine [Norflex] 100 mg PO Q12H #7 tablet.er 08/07/20 Allergies Allergy/AdvReac Type Severity Reaction Status Date / Time codeine Allergy Swelling Verified 08/07/20 18:15 Sulfa (Sulfonamide Allergy Swelling Verified 08/07/20 18:15 Antibiotics) Review of Systems ROS Statement: Those systems with pertinent positive or pertinent negative responses have been documented in the HPI. ROS Other: All systems not noted in ROS Statement are negative. Past Medical History Past Medical History: Cancer, GERD/Reflux, Hyperlipidemia Additional Past Medical History / Comment(s): right breast cancer, psoriasis , states right forearm tender. History of Any Multi-Drug Resistant Organisms: None Reported Past Surgical History: Appendectomy, Hysterectomy Additional Past Surgical History / Comment(s): laparoscopy x3 Past Anesthesia/Blood Transfusion Reactions: No Reported Reaction, Motion Sickness Past Psychological History: Anxiety Smoking Status: Former smoker Past Alcohol Use History: Occasional Past Drug Use History: None Reported - Past Family History Mother Family Medical History: Cancer Additional Family Medical History / Comment(s): lung & brain cancer General Exam - General Exam Comments Initial Comments: This is a well-developed well-nourished awake alert oriented 3 female Limitations: no limitations General appearance: alert, in no apparent distress Head exam: Present: atraumatic, normocephalic, normal inspection Eye exam: Present: normal appearance, PERRL, EOMI. Absent: scleral icterus, conjunctival injection, periorbital swelling ENT exam: Present: normal exam, mucous membranes moist Neck exam: Present: normal inspection, tenderness (Tenderness to the left posterior lateral aspect of the neck musculature no spinous process tenderness to range of motion no stridor JVD or bruits). Absent: meningismus, lymphadenopathy Respiratory exam: Present: normal lung sounds bilaterally. Absent: respiratory distress, wheezes, rales, rhonchi, stridor Cardiovascular Exam: Present: regular rate, normal rhythm, normal heart sounds. Absent: systolic murmur, diastolic murmur, rubs, gallop, clicks GI/Abdominal exam: Present: soft, normal bowel sounds. Absent: distended, tenderness, guarding, rebound, rigid Extremities exam: Present: normal inspection, full ROM, normal capillary refill. Absent: tenderness, pedal edema, joint swelling, calf tenderness Back exam: Present: normal inspection Neurological exam: Present: alert, oriented X3, CN II-XII intact Psychiatric exam: Present: normal affect, normal mood Skin exam: Present: warm, dry, intact, normal color. Absent: rash Course Vital Signs 08/07/20 16:35 Temperature 97.9 F Pulse Rate 69 Respiratory 18 Rate Blood Pressure 132/78 O2 Sat by Pulse 99 Oximetry Medical Decision Making - Medical Decision Making I did discuss findings with the patient she is feeling improved she still has slight residual headache he does appear clinically to be a musculoskeletal origin. She'll be discharged and placed on appropriate medication we did a long discussion regarding this and she agrees with the current plan. - Lab Data Result diagrams: 08/07/20 17:23 08/07/20 17:23 Lab Results 08/07/20 08/07/20 08/07/20 Range/Units 17:23 17:23 17:23 WBC 9.6 (3.8-10.6) k/uL RBC 4.64 (3.80-5.40) m/uL Hgb 14.8 (11.4-16.0) gm/dL Hct 41.7 (34.0-46.0) % MCV 90.0 (80.0-100.0) fL MCH 32.0 (25.0-35.0) pg MCHC 35.5 (31.0-37.0) g/dL RDW 13.4 (11.5-15.5) % Plt Count 187 (150-450) k/uL MPV 6.9 Neutrophils % 82 % Lymphocytes % 11 % Monocytes % 4 % Eosinophils % 2 % Basophils % 1 % Neutrophils # 7.9 H (1.3-7.7) k/uL Lymphocytes # 1.1 (1.0-4.8) k/uL Monocytes # 0.4 (0-1.0) k/uL Eosinophils # 0.1 (0-0.7) k/uL Basophils # 0.0 (0-0.2) k/uL PT 10.0 (9.0-12.0) sec INR 0.9 (<1.2) APTT 25.1 (22.0-30.0) sec Sodium 136 L (137-145) mmol/L Potassium 4.0 (3.5-5.1) mmol/L Chloride 103 (98-107) mmol/L Carbon Dioxide 23 (22-30) mmol/L Anion Gap 10 mmol/L BUN 14 (7-17) mg/dL Creatinine 0.68 (0.52-1.04) mg/dL Est GFR (CKD-EPI)AfAm >90 (>60 ml/min/1.73 sqM) Est GFR (CKD-EPI)NonAf >90 (>60 ml/min/1.73 sqM) Glucose 107 H (74-99) mg/dL Calcium 10.0 (8.4-10.2) mg/dL Magnesium (1.6-2.3) mg/dL Total Bilirubin 0.3 (0.2-1.3) mg/dL AST 42 H (14-36) U/L ALT 66 H (4-34) U/L Alkaline Phosphatase 126 (38-126) U/L Troponin I (0.000-0.034) ng/mL Total Protein 7.9 (6.3-8.2) g/dL Albumin 4.8 (3.5-5.0) g/dL 08/07/20 08/07/20 Range/Units 17:23 18:07 WBC (3.8-10.6) k/uL RBC (3.80-5.40) m/uL Hgb (11.4-16.0) gm/dL Hct (34.0-46.0) % MCV (80.0-100.0) fL MCH (25.0-35.0) pg MCHC (31.0-37.0) g/dL RDW (11.5-15.5) % Plt Count (150-450) k/uL MPV Neutrophils % % Lymphocytes % % Monocytes % % Eosinophils % % Basophils % % Neutrophils # (1.3-7.7) k/uL Lymphocytes # (1.0-4.8) k/uL Monocytes # (0-1.0) k/uL Eosinophils # (0-0.7) k/uL Basophils # (0-0.2) k/uL PT (9.0-12.0) sec INR (<1.2) APTT (22.0-30.0) sec Sodium (137-145) mmol/L Potassium (3.5-5.1) mmol/L Chloride (98-107) mmol/L Carbon Dioxide (22-30) mmol/L Anion Gap mmol/L BUN (7-17) mg/dL Creatinine (0.52-1.04) mg/dL Est GFR (CKD-EPI)AfAm (>60 ml/min/1.73 sqM) Est GFR (CKD-EPI)NonAf (>60 ml/min/1.73 sqM) Glucose (74-99) mg/dL Calcium (8.4-10.2) mg/dL Magnesium 1.8 (1.6-2.3) mg/dL Total Bilirubin (0.2-1.3) mg/dL AST (14-36) U/L ALT (4-34) U/L Alkaline Phosphatase (38-126) U/L Troponin I <0.012 (0.000-0.034) ng/mL Total Protein (6.3-8.2) g/dL Albumin (3.5-5.0) g/dL - EKG Data -: EKG Interpreted by Me EKG shows normal: sinus rhythm, axis, intervals, QRS complexes, ST-T waves (Normal sinus rhythm of 70. Interval 160 QRS duration 98 QT since QTC 414/[address]-T wave changes) Rate: normal - Radiology Data Radiology results: report reviewed (I did review the imaging and report no acute findings are seen.), image reviewed Disposition Clinical Impression: Cephalgia, Myofascial pain on right side Disposition: HOME SELF-CARE Condition: Good Instructions (If sedation given, give patient instructions): Acute Headache (ED), Neck Pain (ED) Additional Instructions: Warm compresses when necessary Prescriptions: Orphenadrine [Norflex] 100 mg PO Q12H #7 tablet.er Ketorolac [Toradol] 10 mg PO Q6HR #20 tab Is patient prescribed a controlled substance at d/c from ED?: No Referrals: Anirudh Cisneros MD [Primary Care Provider] - 1-2 days
--- NOTE | 2020-08-07 20:03 | CT ---
EXAMINATION TYPE: CT angio head neck DATE OF EXAM: 08/07/2020 HISTORY: Headache. COMPARISON: CT DLP: 605.5 mGycm. Automated Exposure Control for Dose Reduction was Utilized. TECHNIQUE: CTA scan of the neck is performed with IV Contrast, patient injected with 100ml mL of Iso stoney 300, axial images are obtained, coronal and sagittal reformatted images are reviewed. Three-D rec onstructed images are created on an independent workstation and reviewed. FINDINGS: Carotid/Vascular Structures: Thoracic aorta, innominate, left and right common carotid, left and righ t subclavian arteries, vertebral arteries are patent. Vertebral arteries are codominant. No evident s tenosis of the proximal internal carotid arteries by NASCET criteria . Internal and extra carotid art eries are patent. Basilar artery shows in the reconstructed image questionable narrowing which is not confirmed with certainty on the source image and may be artifactual Anterior posterior circulation within the brain is patent. No evident aneurysm, stenosis, embolus, or dissection. Other: IMPRESSION: No significant abnormality is seen within the limitations of the exam as described.
[2020-08-07] MEDS ORDERED: CYCLOBENZAPRINE 10MG STARTER 3 TAB BTL PO STA (20:18)
[2020-08-07] MEDS ORDERED: ACETAMINOPHEN TAB 500 MG TAB PO STA (20:18)
[2020-08-07] MEDS ORDERED: IBUPROFEN ORAL SUSP 100 MG/5 ML CUP PO ONE (20:19)
== END 2020-08-07 20:38 | disposition home or self-care (01) ==
LOC: EC 16:31
DX: R51.9 Headache, unspecified (principal); M79.18 Myalgia, other site; E78.5 Hyperlipidemia, unspecified; Z85.3 Personal history of malignant neoplasm of breast; Z90.89 Acquired absence of other organs; Z90.710 Acquired absence of both cervix and uterus; Z87.891 Personal history of nicotine dependence
CPT/HCPCS: 36415; 93005; 80053; 83735; 84484; 85025; 85610; 85730; 70496; 70450; 70498; 99284; 96374; J1885; Q9967

== ENCOUNTER → 2020-08-07 | Outpatient (CLI) | payer OTHER ==
[2020-08-07 15:51] VITALS: BP 131/83; PULSE 70; RESP 18; TEMP 98.1
--- NOTE | 2020-08-07 16:29 | P.PN ---
Progress Note - Text Progress Note Date: 08/07/20 Sulema is a 45-year-old white female status post right breast lumpectomy via donut mastopexy incision and sentinel node biopsy. This was performed and 3221. The lymph nodes were all negative, and the tumor was noted to be 2.2 cm in greatest dimension but all margins were negative. DCIS was present but was completely excised. She was seen by medical oncology and an Oncotype DX test was ordered the results were 14 and she is not recommended to have chemotherapy. She completed radiation oncology last week. Earlier this week she noticed a pain in her right had above her right eyebrow on the lateral aspect of her head. Additionally she had some visual changes on the left eye with some flickering of lights. Right now she has a headache with some nausea. Patient complains of some discomfort in her right arm this has improved. She has not had any fever or chills. She has not had any drainage from her incisions. Physical exam: Incision clean and dry, right breast radiation changes. No evidence of infection No seroma right arm: 15 inches; 08-07-20: 14 1/2 inches right forearm: 15 inches; 08-07-20: 11 forearm left arm: 14 1/4 08-07-20: 13 1/2 left forearm: 11 1/4 08-07-20 7 1/2 Impression/Plan: 1. Right breast lumpectomy sentinel node biopsy on 2. Patient finished radiation oncology 3. Oncotype does not recommend chemotherapy secondary to low Oncotype score 4. Vitamin C and protein supplements 5. ovary to be removed on tuesday 6. patient to be seen in ER related to headache and visual changes 7. follow up here in 4 months 8. continue to follow for lymphedema with physical therapy CC: Dana Pearce
== END ==
LOC: WWCWWP 14:50
PROVIDERS: ATTEND Surgery
DX: Z09 Encounter for follow-up examination after completed treatment for conditions other than malignant neoplasm (principal); I89.0 Lymphedema, not elsewhere classified; Z92.3 Personal history of irradiation; Z98.890 Other specified postprocedural states; Z88.5 Allergy status to narcotic agent; Z88.2 Allergy status to sulfonamides

== ENCOUNTER → 2020-10-09 | Outpatient (CLI) | payer OTHER ==
[2020-10-09 09:34] VITALS: BP 124/76; PULSE 63; RESP 16; TEMP 97.9
--- NOTE | 2020-10-09 09:50 | P.PN ---
Subjective Progress Note Date: 10/09/20 Principal diagnosis: Stage IA right breast cancer May 2020 Sulema is a 45-year-old white female status post right breast lumpectomy via donor mastopexy incision and sentinel node biopsy. This was performed and 3to21. The nodes were all negative and the tumor was noted to be 2.2 cm in greatest dimension all margins negative. DCIS was present but completely excised. She was seen by medical oncology and an oncotype DX test was ordered the results were 14 and she was not recommended to have chemotherapy. She completed a course of radiation therapy on 08/01/2020. She recently began complaining of some fullness in the right breast over the last month. An ultrasound was performed yesterday and she was told that she had a seroma present. She does not have any fever or chills. She does not complain of any inflammation of the breast. Family history: mother: lung and brain cancer maternal aunt: breast cancer maternal grandfather: throat cancer Hormonal history: Menarche: 13 M1, breast fed: yes, age at : 32 menopause: now BCP: Approximately 5 years, is now presently on anastrozole never used estrogen or progesterone Surgical history: Appendectomy Hysterectomy; both ovaries removed 3 laparoscopic procedures Right breast lumpectomy and sentinel node biopsy Medical history: Migraine headaches resolving Bodyaches Social history: Caffeine: 2 cups of coffee per day Nicotine: Negative Alcohol: Twice a week Drugs: Negative Review of systems: HEENT: Negative Lungs: Heart: Negative GI: Negative : Status post hysterectomy for endometriosis Musculoskeletal: generalized muscle aches and pains psychiatric: Depression Hematologic: Negative allergies: codiene and sulfa Objective - Exam BMI 32.8 - Constitutional General appearance: Present: cooperative - EENT Eyes: Present: EOMI ENT: Present: hearing grossly normal - Neck Neck: Present: normal ROM - Respiratory Respiratory: bilateral: CTA - Cardiovascular Heart sounds: normal: S1, S2 - Gastrointestinal General gastrointestinal: Present: soft - Integumentary Integumentary: Present: normal turgor - Musculoskeletal Musculoskeletal: Present: gait normal - Psychiatric Psychiatric: Present: A&O x's 3, appropriate affect, intact judgment & insight - Additional findings Additional findings: Breast Exam: BRA: 36D inspection: post op changes Right breast from prior lumpectomy palpation: Right breast: Multiple positional exam postop and fibrocystic changes, no discrete dominant masses or nodules of concern, no evidence of infection Right axilla: No adenopathy of concern Left breast: Multiple positional exam fibrocystic changes no dominant masses or nodules of concern Left axilla: No adenopathy of concern Assessment and Plan Assessment: Impression: 1. Patient status post right breast lumpectomy and sentinel node biopsy on 3to21, no evidence of recurrent cancer 2. Patient status post radiation therapy 3. Patient on hormonal therapy 4. Patient complaining of some fullness in her breast recent ultrasound revealed a seroma Plan: 1. No evidence of infection, patient is going to have ultrasound-guided aspiration of seroma 2. Patient to follow-up after ultrasound-guided aspiration CC: Dana Pearce
== END ==
LOC: WWCWWP 09:22
PROVIDERS: ATTEND Surgery
DX: L76.34 Postprocedural seroma of skin and subcutaneous tissue following other procedure (principal); Z98.890 Other specified postprocedural states; Z85.3 Personal history of malignant neoplasm of breast; Z92.3 Personal history of irradiation; Z79.811 Long term (current) use of aromatase inhibitors; Z88.5 Allergy status to narcotic agent; Z88.2 Allergy status to sulfonamides

== ENCOUNTER → 2020-10-20 | Day surgery (SDC) | payer OTHER ==
[2020-10-20 12:53] VITALS: RESP 16; TEMP 98.3
[2020-10-20 14:23] VITALS: BP 118/79; PULSE 63
--- NOTE | 2020-10-20 16:27 | USB ---
EXAMINATION TYPE: US breast aspiration single RT DATE OF EXAM: 10/20/2020 CLINICAL HISTORY: 45-year-old female status post right lumpectomy for breast cancer referred for percutaneous aspiration of fluid collection. N64.9 Disorder of right breast. TECHNIQUE: Ultrasound guided aspiration of right breast fluid collection. COMPARISON: NONE FINDINGS: The procedure of ultrasound guided percutaneous aspiration was explained to the patient. Benefits, alternatives, and risks were discussed. An informed consent was then obtained. The patient was placed in supine positioning for imaging and for the procedure. The overlying skin was prepped and draped in usual sterile fashion. Lidocaine was used as anesthetic into the skin and subcutaneous tissue up to area of concern in the 4:00 right breast. The large simple cystic collection measuring 6.3 x 4.2 x 2.7 cm is identified and targeted for aspiration. Under ultrasound guidance, 18-gauge spinal needle is inserted into the fluid and aspiration yields 55 mL clear yellow fluid. The seroma cavity collapses completely. The fluid is divided for cell count and differential, Gram stain and cultures, and cytology. The patient tolerated the procedure well without any immediate complication. The patient reports improvement in pain at the right breast following the aspiration. The patient was kept in the radiology department for short stay after the procedure and then discharged home in stable condition. IMPRESSION: Successful, uncomplicated ultrasound guided right breast 4:00 seroma aspiration. 55 mL clear yellow fluid was evacuated and the seroma cavity collapsed completely. Cell count and differential, Gram stain and cultures, and cytology are pending. Appropriate mammogram and ultrasound follow-up can be performed. Pathology Results: Benign RIGHT BREAST, 4:00, ASPIRATION: Benign cyst fluid with scattered mature lymphocytes and occasional macrophages. Recommendation Return to routine follow up mammogram in 4 months. Back on schedule for February 2021. FLORD
[2020-10-20 19:16] LABS: Appearance,BF Clear; Nucleated Cells, Body Fluid 535 /uL; RBC, Body Fluid 160 /uL
[2020-10-20 19:18] LABS: Mononuclear WBC,Body Fluid 100 %; Total Cells Counted,Body Fluid 100
== END ==
LOC: RADUSWWP 12:39
PROVIDERS: ATTEND Surgery
DX: N64.89 Other specified disorders of breast (principal); Z85.3 Personal history of malignant neoplasm of breast
CPT/HCPCS: 19000; 88305; 88173; 89050; 87070; 87205; 87075; 76942; J2001

== ENCOUNTER → 2020-11-07 | Outpatient (CLI) | payer OTHER ==
[2020-11-07 14:24] VITALS: BP 140/68; PULSE 70; RESP 16; TEMP 97.9
--- NOTE | 2020-11-07 15:02 | P.PN ---
Subjective Progress Note Date: 11/07/20 Principal diagnosis: breast cyst And there is a 45-year-old white female status post right breast lumpectomy. Donut mastopexy incision and sentinel node biopsy on 3to21. Postprocedure she did well however she developed some fullness in the right breast over the last approximately month and a half. An ultrasound was performed and she was noted to have a seroma. She does not have any fever or chills. She does complain of inflammation of the breast[place] [address] which revealed benign cyst fluid with scattered mature lymphocytes and occasional macrophages. Cultures were obtained. No organisms were seen and no growth was noted after 4 days. Approximately 55 mL of clear fluid was aspirated and the seroma cavity collapsed completely. She states that it felt good for approximately a week and then slowly began feeling more focal and more uncomfortable again. Objective - Vital Signs Vital signs: Vital Signs Temp 97.9 F 11/07/20 13:56 Pulse 70 11/07/20 13:56 Resp 16 11/07/20 13:56 BP 140/68 11/07/20 13:56 Pulse Ox 97 11/07/20 13:56 Intake & Output 11/06/20 11/07/20 11/07/20 18:59 06:59 18:59 Weight 83.915 kg - Constitutional General appearance: Present: cooperative - EENT ENT: Present: hearing grossly normal - Respiratory Respiratory: bilateral: CTA - Cardiovascular Heart sounds: normal: S1, S2 - Integumentary Integumentary Comment(s): Mild erythema right breast lateral aspect Assessment and Plan Assessment: Impression: 1. Probable recurrent seroma right breast lateral aspect 2. Mild erythema right breast lateral aspect Plan: 1. Repeat ultrasound to see if there is anything else further to aspirate 2. Keflex 3. Follow-up next week CC: Dr. Pearce
== END ==
LOC: WWCWWP 13:51
PROVIDERS: ATTEND Surgery
DX: L76.82 Other postprocedural complications of skin and subcutaneous tissue (principal); Z88.5 Allergy status to narcotic agent; Z88.2 Allergy status to sulfonamides

== ENCOUNTER → 2020-11-27 | Outpatient (CLI) | payer OTHER ==
[2020-11-27 10:54] VITALS: BP 115/78; PULSE 69; RESP 16; TEMP 98.2
== END ==
LOC: WWCWWP 10:25
PROVIDERS: ATTEND Surgery
DX: Z53.9 Procedure and treatment not carried out, unspecified reason (principal)

== ENCOUNTER → 2020-11-27 | Outpatient (CLI) | payer OTHER ==
--- NOTE | 2020-11-27 11:23 | P.PN ---
Subjective Progress Note Date: 11/27/20 Principal diagnosis: Stage IA right breast invasive ductal carcinoma; T1 N0 M0 ER/LA positive HER-2 negative G2 breast cyst T1 N0 M0 ER/LA positive. Positive HER-2 negative G2 stage IA right breast cancer Sulema is a 45-year-old white female status post right breast lumpectomy. Donut mastopexy incision and sentinel node biopsy on 3220. Postprocedure she did well however she developed some fullness in the right breast over the last approximately month and a half. An ultrasound was performed and she was noted to have a seroma. She does not have any fever or chills. She does complain of inflammation of the breast[place] [address] which revealed benign cyst fluid with scattered mature lymphocytes and occasional macrophages. Cultures were obtained. No organisms were seen and no growth was noted after 4 days. Approximately 55 mL of clear fluid was aspirated and the seroma cavity collapsed completely. She states that it felt good for approximately a week and then slowly began feeling more focal and more uncomfortable again. She underwent a lumpectomy and sentinel node biopsy on 3220. [place] lymph nodes were negative for cancer. Lumpectomy revealed margins all negative for invasive cancer DCIS. The invasive cancer was 2.2 cm in size she also had DCIS present. Her Oncotype score was 12. She is presently taking anastrozole. She is tolerating this without difficulty. Objective - Constitutional General appearance: Present: cooperative - EENT Eyes: Present: EOMI ENT: Present: hearing grossly normal - Respiratory Respiratory: bilateral: CTA - Cardiovascular Rhythm: regular Heart sounds: normal: S1, S2 - Gastrointestinal General gastrointestinal: Present: soft - Integumentary Integumentary Comment(s): Right breast postoperative and radiation changes noted no definite cellulitis the inferior medial and lateral area are mildly tender to palpation - Musculoskeletal Musculoskeletal: Present: gait normal - Psychiatric Psychiatric: Present: A&O x's 3, appropriate affect, intact judgment & insight - Additional findings Additional findings: Breast examination: BRA: 38D Inspection: Right breast grade 2 ptosis, well-healed scars from prior surgery, radiation and surgical changes noted in the breast, left breast grade 3 ptosis Palpation: Right breast: Multi-positional exam probable recurrent seroma, radiation and surgical changes, no definite cellulitis or infection; mild erythema at the inferior aspect of the breast at the 6 o'clock position Right axilla: No adenopathy of concern left breast: Multi-positional exam the dominant masses or nodules of concern Left axilla: No adenopathy of concern Assessment and Plan Assessment: Impression: 1. Patient status post right breast reduction mammoplasty and sentinel node biopsy performed on 05-06-20; approximately 6 weeks ago she developed a seroma which was aspirated negative for any organisms, it appears that the seroma has recurred. 2. Post surgical and radiation changes right breast no evidence of recurrent cancer Plan: 1. Review ultrasound with radiologist 2. Consider re-aspiration of seroma 3. Patient will be given another course of Keflex as there is some mild e rythema at the lower aspect of the breast CC: Dana Torres
--- NOTE | 2020-11-27 11:24 | USB ---
Reason for exam: follow-up at short interval from prior study. History: Patient has history of breast cancer at age 45. Benign US breast aspiration single RT of the right breast, October 20, 2020. Radiation therapy of the right breast, July 2020. Lumpectomy of the right breast, May 12, 2020. Malignant MG pre op needle loc RT of the right breast, May 06, 2020. Physical Findings: Nurse Summary: right breast hard, firm, warm, medial, lateal lower aspect breast (nurse ts). US Breast RT Right complete breast ultrasound includes all four quadrants, the retroareolar region and axilla. Finding demonstrates a 3.5 x 4.9 x 2.2cm irregular, questionable seroma at 3-6 o'clock. These results were verbally communicated with the patient and result sheet given to the patient on 11/27/20. ASSESSMENT: Benign, BI-RAD 2 RECOMMENDATION: Clinical management of the right breast. Manage patient on a clinical basis. Appointment scheduled for the patient for 11/27/20 at 10:[address] Leon. PRELIMINARY REPORT CALLED AND FAXED TO DR. LEON ON 11/27/20.
== END | disposition home or self-care (01) ==
LOC: RADUSWWP 08:45
PROVIDERS: ATTEND Surgery
DX: D05.11 Intraductal carcinoma in situ of right breast (principal); N60.01 Solitary cyst of right breast; Z90.12 Acquired absence of left breast and nipple

== ENCOUNTER → 2020-12-12 | Outpatient (CLI) | payer BC ==
[2020-12-12 14:07] VITALS: BP 102/67; PULSE 79; RESP 12; TEMP 98.2
--- NOTE | 2020-12-12 14:32 | P.PN ---
Subjective Progress Note Date: 12/12/20 Principal diagnosis: stage IA right breast invasive carcinoma asive ductal cancer stage 1A right breast invasive ductal cancer [id number]+Her2-G2 Sulema is a 44 year old white female with a biopsy proven right breast cancer at the 3 oclock position. She is seen in consultation for Dr. Cisneros. She states that she recently felt some increased fullness in her right breast in the lower inner quadrant area. A bilateral mammogram was done in February the left breast remains stable however, additional views were requested of the right breast as well as an ultrasound. On the ultrasound a 1.7 x 1.3 x 1.1 cm lesion was noted in the approximately 4 to 5 o'clock position. Core biopsy of this was performed and it was positive for invasive ductal carcinoma. The lesion is ER/MO positive, HER-2 pending and grade 2. The patient gets mammograms every 6 months for the past three years for screening. She has never had a biopsy until now. She has not had any trauma or infection in the past. She is not complaining of any pain or nipple discharge. Genetic testing was done and this was negative. She was seen by medical oncology DR. Childress she was located in [facility], however patient wishes her care to be closer to home and has an appointment with Dr. Contreras next week. An MRI was performed on . This revealed biopsy-proven right breast cancer, and benign findings in the left breast. No multicentric malignancy was identified. It is felt that the patient after the procedure will have an Oncotype DX performed on the tumor to determine whether or not she would need any chemotherapy. Because this is hormone receptor positive she will be recommended to have hormonal therapy. The radiation therapy would be recommended if she chose a lumpectomy, and if she were to choose a mastectomy there is a remote chance she would also need radiation. She underwent a lumpectomy and sentinel node biopsy and 3to21. [place] nodes were negative for cancer. Lumpectomy revealed margins were all negative for invasive carcinoma. Invasive tumor was 2.2 cm in size with DCIS present as well. Her Oncotype score was 12 and therefore she did not have any chemotherapy. She completed a course of radiation therapy and is presently taking anastrozole. She is tolerating this without difficulty. The patient however continues to experience discomfort in the right breast as well as the right arm. The pain occurs once or twice a day it is fleeting in nature and seems to originate from the lateral aspect of the breast. She does not feel the pain is improving. Ultrasound was performed on [id number] which revealed a 3.5 x 4.9 cm seroma at the 3 to 6 o'clock position. Caffeine: coffee 4 cups/day Nicotine: stopped 1 week ago, 1 pack/2 weeks for 15 years theobromine: daily hormones: none; had a hysterectomy and one ovary done for endometriosis at 41 Family History: mother: lung and brain cancer, she was a smoker maternal aunt: breast cancer maternal aunt: ovarian cancer Hormonal History: menarche: 11 Miscarriage 1, breast fed: no, age at first : 33 hysterectomy at 41 for endometriosis control pills: 25 years hormones: none Surgical history: Hysterectomy and one ovary removed for endometriosis 3 laparoscopic exams prior to hysterectomy Appendectomy Medical history: none Social History: nicotine: Used to smoke 1 pack every 2 weeks for 15 years but stopped approximately a week ago Alcohol: 1 glass of wine/day drugs: none - Constitutional Constitutional: Reports sweats - EENT Eyes: bilateral as per HPI, denies pain Ears: right: tinnitus, deny: decreased hearing Ears, nose, mouth and throat: Reports headache - Breasts Breasts: bilateral: as per HPI - Cardiovascular Cardiovascular: Denies chest pain, Denies shortness of breath - Respiratory Comment: former smoker Respiratory: Denies cough - Gastrointestinal Comment: GERD Gastrointestinal: Reports constipation, Denies abdominal pain, Denies diarrhea, Denies nausea, Denies vomiting - Genitourinary (Female) Genitourinary: Denies dysuria, Denies hematuria - Menstruation Menstruation: Reports post hysterectomy - Musculoskeletal Musculoskeletal: Reports myalgias - Integumentary Integumentary: Reports rash - Neurological Neurological: Denies numbness, Denies weakness - Psychiatric Psychiatric: Reports anxiety, Denies depression - Endocrine Endocrine: Reports weight change - Hematologic/Lymphatic Comment: none - Allergic/Immunologic Allergic/Immunologic: Reports seasonal allergies Objective - Vital Signs Vital signs: Vital Signs Temp 98.2 F 12/12/20 13:56 Pulse 79 12/12/20 13:56 Resp 12 12/12/20 13:56 BP 102/67 12/12/20 13:56 Pulse Ox 100 12/12/20 13:56 Intake & Output 12/11/20 12/12/20 12/12/20 18:59 06:59 18:59 Weight 81.647 kg - Constitutional General appearance: Present: cooperative - EENT Eyes: Present: EOMI ENT: Present: hearing grossly normal - Neck Neck: Present: normal ROM - Respiratory Respiratory: bilateral: CTA - Cardiovascular Rhythm: regular Heart sounds: normal: S1, S2 - Integumentary Integumentary: Present: normal turgor - Musculoskeletal Musculoskeletal: Present: gait normal - Psychiatric Psychiatric: Present: A&O x's 3, appropriate affect, intact judgment & insight - Additional findings Additional findings: Breast Exam: BRA: 42D inspection: bilateral grade 2 ptosis palpation: right breast: woody induration related to radiation therapy, no dominant masses or nodules of concern, thickened skin again proved to be related to radiation and postop changes Right axilla: No adenopathy of concern Left breast: Multi-positional exam fibrocystic changes no dominant masses or nodules of concern Left axilla: No adenopathy of concern Assessment and Plan Assessment: Impression: 1. Stage IA right breast invasive ductal carcinoma, continued tenderness of the breast radiation and postop changes no evidence of recurrent cancer 2. Seroma right breast Plan: 1. Ultrasound-guided aspiration of seroma right breast 2. Bilateral mammogram in February with physician exam here at that time 3. Continue anastrozole 4. Continue follow-up with radiation oncology 5. Continue follow-up medical oncology CC; Dr. Cisneros; Dana Chow
== END ==
LOC: WWCWWP 13:52
PROVIDERS: ATTEND Surgery
DX: C50.911 Malignant neoplasm of unspecified site of right female breast (principal); L76.34 Postprocedural seroma of skin and subcutaneous tissue following other procedure; Z79.811 Long term (current) use of aromatase inhibitors; Z98.890 Other specified postprocedural states; Z87.891 Personal history of nicotine dependence; Z92.3 Personal history of irradiation

== ENCOUNTER → 2021-02-09 | Outpatient (CLI) | payer BC ==
--- NOTE | 2021-02-10 08:51 | MM ---
Reason for exam: additional evaluation requested from prior study. Last mammogram was performed 11 months ago. History: Patient has history of breast cancer at age 45 and had first child at age 33. Family history of breast cancer in maternal aunt at age 37. Benign US breast aspiration single RT of the right breast, October 20, 2020. Radiation therapy of the right breast, July 2020. Lumpectomy of the right breast, May 12, 2020. Malignant MG pre op needle loc RT of the right breast, May 06, 2020. Taking antineoplastic. Physical Findings: Nurse did not find any significant physical abnormalities on exam. MG 3D Diag Mammo W/Cad VINOD Bilateral CC and MLO view(s) were taken. Prior study comparison: March 20, 2020, mammogram, performed at [facility]. March 13, 2020, mammogram, performed at [facility]. The breast tissue is heterogeneously dense. This may lower the sensitivity of mammography. No suspicious calcifications are seen. Skin thickening and post operative changes right breast. Mass area inner lower right breast may reflect seroma. These results were verbally communicated with the patient and result sheet given to the patient on 02/09/21. ASSESSMENT: Incomplete: need additional imaging evaluation, BI-RAD 0 RECOMMENDATION: Ultrasound of the right breast. Manage patient on a clinical basis.
== END | disposition home or self-care (01) ==
LOC: RADMAMWWP 13:58
PROVIDERS: ATTEND Surgery
DX: N63.14 Unspecified lump in the right breast, lower inner quadrant (principal); Z85.3 Personal history of malignant neoplasm of breast; Z80.3 Family history of malignant neoplasm of breast
CPT/HCPCS: 77062; 77066

== ENCOUNTER → 2021-02-09 | Outpatient (CLI) | payer BC, OTHER ==
--- NOTE | 2021-02-09 11:26 | BD ---
EXAMINATION TYPE: Axial Bone Density DATE OF EXAM: 02/09/2021 COMPARISON: NONE CLINICAL HISTORY: Height: 63 IN Weight: 204 LBS FRAX RISK QUESTIONS: Secondary Osteoporosis: 3. Menopause before 45: TOTAL HYST AGE 45 RISK FACTORS HISTORY OF: Family History of Osteoporosis: YES GRANDFATHER Active: YES Diet low in dairy products/other sources of calcium: YES Postmenopausal woman: TOTAL HYST AGE 44 MEDICATIONS: Additional Medications: VIT D, HORMONE BABATUNDE, LEXAPRO, CHOLESTEROL MEDS, Additional History: BREAST CANCER WITH RADIATION EXAM MEASUREMENTS: Bone mineral densitometry was performed using the [employer] System. Bone mineral density as measured about the Lumbar spine is: ----- L1-L4(G/cm2): 1.182 T Score Values are as follows: ----- L2: -0.2 ----- L3: 0.3 ----- L4: -0.7 ----- L1-L4: 0.0 Bone mineral density BASELINE Bone mineral density about the R hip (g/cm2): 1.055 Bone mineral density about the L hip (g/cm2): 1.031 T Score values are as follows: -----R Neck: 0.1 -----L Neck: -0.1 -----R Total: 0.4 -----L Total: 0.7 Bone mineral density BASELINE IMPRESSION: No evidence for osteoporosis or osteopenia. NOTE: T-SCORE=SD OF THE YOUNG ADULT MEAN.
--- NOTE | 2021-02-10 08:53 | USB ---
Reason for exam: additional evaluation requested from abnormal screening. History: Patient has history of breast cancer at age 45 and had first child at age 33. Family history of breast cancer in maternal aunt at age 37. Benign US breast aspiration single RT of the right breast, October 20, 2020. Radiation therapy of the right breast, July 2020. Lumpectomy of the right breast, May 12, 2020. Malignant MG pre op needle loc RT of the right breast, May 06, 2020. Taking antineoplastic. US Breast RT Right complete breast ultrasound includes all four quadrants, the retroareolar region and axilla. Finding demonstrates a 3.7 x 2.2 x 6.3cm irregular, fluid filled lesion at 4 o'clock, similar in appearance to prior, longer in size. These results were verbally communicated with the patient and result sheet given to the patient on 02/09/21. ASSESSMENT: Benign, BI-RAD 2 RECOMMENDATION: Surgical consultation of the right breast. Manage patient on a clinical basis. Called office with mammographic findings and has scheduled an appointment for the patient for 02/13/[address] Leon. PRELIMINARY REPORT CALLED AND FAXED TO DR. LEON ON 02/10/21.
== END | disposition home or self-care (01) ==
LOC: RADBDWWP 09:46
PROVIDERS: ATTEND Internal Medicine Hematology & Oncology
DX: N64.59 Other signs and symptoms in breast (principal); Z85.3 Personal history of malignant neoplasm of breast; Z80.3 Family history of malignant neoplasm of breast
CPT/HCPCS: 77080

== ENCOUNTER → 2021-02-13 | Outpatient (CLI) | payer BC ==
[2021-02-13 11:08] VITALS: BP 128/81; PULSE 87; RESP 16; TEMP 98.1
--- NOTE | 2021-02-13 11:25 | P.PN ---
Subjective Progress Note Date: 02/13/21 stage IA right breast invasive carcinoma asive ductal cancer stage 1A right breast invasive ductal cancer [id number]+Her2-G2 Sulema is a 45 year old white female with a biopsy proven right breast cancer at the 3 oclock position. She is seen in consultation for Dr. Cisneros. She states that she recently felt some increased fullness in her right breast in the lower inner quadrant area. A bilateral mammogram was done in February the left breast remains stable however, additional views were requested of the right breast as well as an ultrasound. On the ultrasound a 1.7 x 1.3 x 1.1 cm lesion was noted in the approximately 4 to 5 o'clock position. Core biopsy of this was performed and it was positive for invasive ductal carcinoma. The lesion is ER/UT positive, HER-2 pending and grade 2. The patient gets mammograms every 6 months for the past three years for screening. She has never had a biopsy until now. She has not had any trauma or infection in the past. She is not complaining of any pain or nipple discharge. Genetic testing was done and this was negative. She was seen by medical oncology DR. Childress she was located in [facility], however patient wishes her care to be closer to home and has an appointment with Dr. Contreras next week. An MRI was performed on . This revealed biopsy-proven right breast cancer, and benign findings in the left breast. No multicentric malignancy was identified. It is felt that the patient after the procedure will have an Oncotype DX performed on the tumor to determine whether or not she would need any chemotherapy. Because this is hormone receptor positive she will be recommended to have hormonal therapy. The radiation therapy would be recommended if she chose a lumpectomy, and if she were to choose a mastectomy there is a remote chance she would also need radiation. She underwent a lumpectomy and sentinel node biopsy and 3220. [place] nodes were negative for cancer. Lumpectomy revealed margins were all negative for invasive carcinoma. Invasive tumor was 2.2 cm in size with DCIS present as well. Her Oncotype score was 12 and therefore she did not have any chemotherapy. She completed a course of radiation therapy and is presently taking anastrozole. She is tolerating this without difficulty. The patient however continues to experience discomfort in the right breast as well as the right arm. The pain occurs once or twice a day it is fleeting in nature and seems to originate from the lateral aspect of the breast. She does not feel the pain is improving. Ultrasound was performed on which revealed a 3.5 x 4.9 cm seroma at the 3 to 6 o'clock position. She was scheduled January 08 for aspirtion via ultrasound which she canceled secondary to the fact that she was positive for COVID. She had a bilateral mammogram on [id number] this was felt to be incomplete and ultrasound of the right breast was recommended. Ultrasound of the 27 x 6.3 cm irregular fluid-filled lesion at 4:00 similar in appearance to prior prolonged were incised. This is most likely consistent with a seroma. The patient states it is still uncomfortable Caffeine: coffee 4 cups/day Nicotine: stopped 1 week ago, 1 pack/2 weeks for 15 years theobromine: daily hormones: none; had a hysterectomy and one ovary done for endometriosis at 41 Family History: mother: lung and brain cancer, she was a smoker maternal aunt: breast cancer maternal aunt: ovarian cancer Hormonal History: menarche: 11 Miscarriage 1, breast fed: no, age at first : 33 hysterectomy at 41 for endometriosis control pills: 25 years hormones: none Surgical history: Hysterectomy and one ovary removed for endometriosis 3 laparoscopic exams prior to hysterectomy Appendectomy Medical history: none Social History: nicotine: Used to smoke 1 pack every 2 weeks for 15 years but stopped approximately a week ago Alcohol: 1 glass of wine/day drugs: none - Constitutional Constitutional: Reports sweats - EENT Eyes: bilateral as per HPI, denies pain Ears: right: tinnitus, deny: decreased hearing Ears, nose, mouth and throat: Reports headache - Breasts Breasts: bilateral: as per HPI - Cardiovascular Cardiovascular: Denies chest pain, Denies shortness of breath - Respiratory Comment: former smoker Respiratory: Denies cough - Gastrointestinal Comment: GERD Gastrointestinal: Reports constipation, Denies abdominal pain, Denies diarrhea, Denies nausea, Denies vomiting - Genitourinary (Female) Genitourinary: Denies dysuria, Denies hematuria - Menstruation Menstruation: Reports post hysterectomy - Musculoskeletal Musculoskeletal: Reports myalgias - Integumentary Integumentary: Reports rash - Neurological Neurological: Denies numbness, Denies weakness - Psychiatric Psychiatric: Reports anxiety, Denies depression - Endocrine Endocrine: Reports weight change - Hematologic/Lymphatic Comment: none - Allergic/Immunologic Allergic/Immunologic: Reports seasonal allergies Objective - Vital Signs Vital signs: Vital Signs Temp 98.1 F 02/13/21 11:04 Pulse 87 02/13/21 11:04 Resp 16 02/13/21 11:04 BP 128/81 02/13/21 11:04 Pulse Ox Intake & Output 02/12/21 02/13/21 02/13/21 18:59 06:59 18:59 Weight 86.183 kg - Constitutional General appearance: Present: cooperative - EENT Eyes: Present: EOMI ENT: Present: hearing grossly normal - Neck Neck: Present: normal ROM - Respiratory Respiratory: bilateral: CTA - Cardiovascular Heart sounds: normal: S1, S2 - Integumentary Integumentary Comment(s): incisions clean and well healed right breast - Musculoskeletal Musculoskeletal: Present: gait normal - Psychiatric Psychiatric: Present: A&O x's 3, appropriate affect, intact judgment & insight - Additional findings Additional findings: Breast examination: Block: 40 2D Inspection: Bilateral grade 2 ptosis Palpation: Right breast way induration related to radiation therapy, no dominant masses or nodules of concern, thickened skin the patient does not have any definite seroma palpable although there is one seen on recent radiographs Right axilla: No adenopathy of concern [place] [id number] no dominant masses or nodules of concern Left axilla: No adenopathy of concern Assessment and Plan Assessment: Impression: Traumatic seroma right breast Asymmetry of breast secondary to lumpectomy and radiation therapy right breast Plan: Ultrasound-guided aspiration seroma right breast Patient to have symmetry procedure done in the future No evidence of recurrent cancer continues on anestrazole (tolerating well) CC: Shahram Pearce
== END | disposition home or self-care (01) ==
LOC: WWCWWP 10:49
PROVIDERS: ATTEND Surgery
DX: Z53.9 Procedure and treatment not carried out, unspecified reason (principal)

== ENCOUNTER → 2021-03-16 | Day surgery (SDC) | payer BC ==
[2021-03-16 12:18] VITALS: RESP 16
[2021-03-16 13:16] VITALS: BP 120/76; PULSE 69; TEMP 98.1
--- NOTE | 2021-03-16 13:30 | USB ---
ULTRASOUND GUIDED RIGHT BREAST SEROMA ASPIRATION: CLINICAL HISTORY: Right breast seroma FINDINGS: The procedure was explained to the patient. The risks, complications, benefits and alternatives were discussed and any questions were answered. Informed consent was obtained. Patient was placed supine on the ultrasound table and prepped and draped in the usual sterile fashion. The patient was placed in supine positioning for imaging and for the procedure. The overlying skin was prepped and draped in usual sterile fashion. Lidocaine was used as anesthetic into the skin and subcutaneous tissue up to area of concern in the 4:00 right breast. Under ultrasound guidance, 18-gauge spinal needle is inserted into the fluid and aspiration yields 25 mL clear yellow fluid. The seroma cavity resolved post procedure. All elements of maximal barrier and sterile technique were utilized. Patient was stable throughout the procedure and upon discharge from the Department of radiology. IMPRESSION: 1. Successful ultrasound guided right breast seroma aspiration.. Pathology Results: Benign RIGHT BREAST AT 4:00, ULTRASOUND GUIDED FINE NEEDLE ASPIRATE: Hypocellular specimen consisting of mainly blood and rare histiocytes. Non-diagnostic. Recommendation Follow up ultrasound of the right breast in 6 months. ANDRES
== END ==
LOC: RADUSWWP 11:57
PROVIDERS: ATTEND Surgery
DX: N64.89 Other specified disorders of breast (principal)
CPT/HCPCS: 88305; 88173; 76942; 10160; J2001

== ENCOUNTER → 2021-08-20 | Outpatient (CLI) | payer BC ==
[2021-08-20 09:40] VITALS: BP 120/86; PULSE 61; RESP 17; TEMP 97.9
--- NOTE | 2021-08-20 10:09 | P.PN ---
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 She is seen in consultation for Dr. Cisneros. She states that she recently felt some increased fullness in her right breast in the lower inner quadrant area. A bilateral mammogram was done in February the left breast remains stable however, additional views were requested of the right breast as well as an ultrasound. On the ultrasound a 1.7 x 1.3 x 1.1 cm lesion was noted in the approximately 4 to 5 o'clock position. Core biopsy of this was performed and it was positive for invasive ductal carcinoma. The lesion is ER/KY positive, HER-2 pending and grade 2. The patient gets mammograms every 6 months for the past three years for screening. She has never had a biopsy until now. She has not had any trauma or infection in the past. She is not complaining of any pain or nipple discharge. Genetic testing was done and this was negative. She was seen by medical oncology DR. Childress she was located in [facility], however patient wishes her care to be closer to home and has an appointment with Dr. Contreras next week. An MRI was performed on . This revealed biopsy-proven right breast cancer, and benign findings in the left breast. No multicentric malignancy was identified. It is felt that the patient after the procedure will have an Oncotype DX performed on the tumor to determine whether or not she would need any chemotherapy. Because this is hormone receptor positive she will be recommended to have hormonal therapy. The radiation therapy would be recommended if she chose a lumpectomy, and if she were to choose a mastectomy there is a remote chance she would also need radiation. She underwent a lumpectomy and sentinel node biopsy and 3220. [place] nodes were negative for cancer. Lumpectomy revealed margins were all negative for invasive carcinoma. Invasive tumor was 2.2 cm in size with DCIS present as well. Her Oncotype score was 12 and therefore she did not have any chemotherapy. She completed a course of radiation therapy and is presently taking anastrozole. She is tolerating this without difficulty. The patient however continues to experience discomfort in the right breast as well as the right arm. The pain occurs once or twice a day it is fleeting in nature and seems to originate from the lateral aspect of the breast. She does not feel the pain is improving. Ultrasound was performed on which revealed a 3.5 x 4.9 cm seroma at the 3 to 6 o'clock position. She was scheduled January 08 for aspirtion via ultrasound which she canceled secondary to the fact that she was positive for COVID. She had a bilateral mammogram on this was felt to be incomplete and ultrasound of the right breast was recommended. Ultrasound of the 27 x 6.3 cm irregular fluid-filled lesion at 4:00 similar in appearance to prior prolonged were incised. This is most likely consistent with a seroma. The patient states it is still uncomfortable 03-27-[address] Contreras reviewed. She is presently on tamoxifen as other aromatase inhibitors were unable to be tolerated. Patient does complain of some fullness in the right breast in the upper outer and inner quadrants. Seroma of the right breast was last aspirated in March of 2021. 25 mL of fluid was removed. Caffeine: coffee 4 cups/day Nicotine: stopped 1 week ago, 1 pack/2 weeks for 15 years theobromine: daily hormones: none; had a hysterectomy and one ovary done for endometriosis at 41 Family History: mother: lung and brain cancer, she was a smoker maternal aunt: breast cancer maternal aunt: ovarian cancer Hormonal History: menarche: 11 Miscarriage 1, breast fed: no, age at first : 33 hysterectomy at 41 for endometriosis control pills: 25 years hormones: none Surgical history: Hysterectomy and one ovary removed for endometriosis 3 laparoscopic exams prior to hysterectomy Appendectomy Medical history: none Social History: nicotine: Used to smoke 1 pack every 2 weeks for 15 years but stopped approximately a week ago Alcohol: 1 glass of wine/day drugs: none - Constitutional Constitutional: Reports sweats - EENT Eyes: bilateral as per HPI, denies pain Ears: right: tinnitus, deny: decreased hearing Ears, nose, mouth and throat: Reports headache - Breasts Breasts: bilateral: as per HPI - Cardiovascular Cardiovascular: Denies chest pain, Denies shortness of breath - Respiratory Comment: former smoker Respiratory: Denies cough - Gastrointestinal Comment: GERD Gastrointestinal: Reports constipation, Denies abdominal pain, Denies diarrhea, Denies nausea, Denies vomiting - Genitourinary (Female) Genitourinary: Denies dysuria, Denies hematuria - Menstruation Menstruation: Reports post hysterectomy - Musculoskeletal Musculoskeletal: Reports myalgias - Integumentary Integumentary: Reports rash - Neurological Neurological: Denies numbness, Denies weakness - Psychiatric Psychiatric: Reports anxiety, Denies depression - Endocrine Endocrine: Reports weight change - Hematologic/Lymphatic Comment: none - Allergic/Immunologic Allergic/Immunologic: Reports seasonal allergies Objective - Vital Signs Vital signs: Vital Signs Temp 97.9 F 08/20/21 09:36 Pulse 61 08/20/21 09:36 Resp 17 08/20/21 09:36 BP 120/86 08/20/21 09:36 Pulse Ox 98 08/20/21 09:36 FiO2 Intake & Output 08/19/21 08/20/21 08/20/21 18:59 06:59 18:59 Weight 90.718 kg - Exam BMI: 35.4 - Constitutional General appearance: Present: cooperative - EENT Eyes: Present: EOMI ENT: Present: hearing grossly normal - Neck Neck: Present: normal ROM - Respiratory Respiratory: bilateral: CTA - Cardiovascular Rhythm: regular Heart sounds: normal: S1, S2 - Gastrointestinal General gastrointestinal: Present: soft - Integumentary Integumentary: Present: normal turgor - Musculoskeletal Musculoskeletal: Present: gait normal - Psychiatric Psychiatric: Present: A&O x's 3, appropriate affect, intact judgment & insight - Additional findings Additional findings: Breast Exam: BRA: 40D inspection: Postoperative and postradiation changes right breast Palpation: Right breast: Post radiation and postoperative changes, no evidence of recurrent cancer Right axilla: No adenopathy of concern Left breast: Multi-positional exam fibrocystic changes no dominant masses or nodules of concern Left axilla: No adenopathy of concern Assessment and Plan Assessment: Impression: Right breast status post lumpectomy and radiation therapy for stage IA invasive ductal carcinoma, no evidence of recurrent cancer, patient has had seromas aspirated multiple times Plan: Repeat right breast ultrasound rule out recurrent seroma Follow-up after repeat ultrasound Continue tamoxifen Continue to follow up with medical oncology Follow-up here in 6 months Bilateral mammogram CC: Dr. Cisneros
== END ==
LOC: WWCWWP 09:17
PROVIDERS: ATTEND Surgery
DX: Z08 Encounter for follow-up examination after completed treatment for malignant neoplasm (principal); L76.34 Postprocedural seroma of skin and subcutaneous tissue following other procedure; Z85.3 Personal history of malignant neoplasm of breast; Z79.811 Long term (current) use of aromatase inhibitors; Z88.1 Allergy status to other antibiotic agents; Z88.2 Allergy status to sulfonamides; Z88.5 Allergy status to narcotic agent

== ENCOUNTER → 2022-01-06 | Outpatient (CLI) | payer BC ==
--- NOTE | 2022-01-06 10:15 | MM ---
Reason for Exam: Follow-up at short interval from prior study. Last screening mammogram was performed 11 month(s) ago. Patient History: Menarche at age 13. First Full-Term at age 33. Late child-bearing (after 30). Hysterectomy at age 40. Breast cancer, age 45. 05/12/2020, Lumpectomy on the Right side. 03/16/2021, Benign Cyst Aspiration on the right side. 10/20/2020, Benign Cyst Aspiration on the right side. 05/06/2020, Malignant Core Biopsy on the right side. 07/2020, Radiation Therapy on the right side. Maternal aunt had breast cancer, age 37. Tissue Density: The breast tissue is heterogeneously dense. This may lower the sensitivity of mammography. Findings: Analyzed By CAD. Diminished size right breast with surgical clips consistent with prior treatment changes redemonstrated. Increased density at this level is noted. Prominent left axillary lymph nodes are redemonstrated. Overall Assessment: Incomplete: need additional imaging evaluation, BI-RAD 0 Management: Diagnostic Breast Ultrasound of the right breast. Painful right breast and abnormal mammogram. Results were given to the patient verbally at the time of exam. Electronically signed and approved by: Govind Luna M.D.
== END | disposition home or self-care (01) ==
LOC: RADMAMWWP 09:29
PROVIDERS: ATTEND Surgery
DX: Z85.3 Personal history of malignant neoplasm of breast (principal); Z80.3 Family history of malignant neoplasm of breast
CPT/HCPCS: 77062; 77066

== ENCOUNTER 2022-06-27 18:48 | Inpatient (IN) | payer BC ==
[2022-06-27] MEDS ORDERED: IBUPROFEN 600 MG TAB PO STA (19:32)
[2022-06-27] MEDS ORDERED: ACETAMINOPHEN TAB 325 MG TAB PO STA (19:32)
[2022-06-27] MEDS ORDERED: SODIUM CHLORIDE 0.9% 1,000 ML IV ONE (19:32)
[2022-06-27] MEDS ORDERED: VANCOMYCIN 1,500 MG in SODIUM CHLORIDE 0.9% 500 ML 500 ML IVPB STA (19:32)
[2022-06-27 20:24] LABS: ALT 52 U/L (4-34); AST 35 U/L (14-36); African American GFR (CKD) >90 (>60 ml/min/1.73 sqM); Albumin 4.8 g/dL (3.5-5.0); Alkaline Phosphatase 109 U/L (38-126); Anion Gap 12 mmol/L; Blood Urea Nitrogen 13 mg/dL (7-17); Calcium 9.7 mg/dL (8.4-10.2); Carbon Dioxide 24 mmol/L (22-30); Chloride 99 mmol/L (98-107); Glucose 114 mg/dL (74-99); Non-African American GFR(CKD) >90 (>60 ml/min/1.73 sqM); Sodium 135 mmol/L (137-145); Total Bilirubin 0.9 mg/dL (0.2-1.3); Total Protein 7.8 g/dL (6.3-8.2)
[2022-06-27 20:42] LABS: Basophils % (A) 0 %; Eosinophils % (A) 0 %; HCT 47.4 % (34.0-46.0); HGB 15.9 gm/dL (11.4-16.0); Lymphocytes # (A) 0.6 k/uL (1.0-4.8); Lymphocytes % (A) 5 %; MCH 30.5 pg (25.0-35.0); MCHC 33.7 g/dL (31.0-37.0); MCV 90.7 fL (80.0-100.0); Monocytes # (A) 0.5 k/uL (0-1.0); Monocytes % (A) 5 %; Neutrophils % (A) 90 %; Platelet Count 191 k/uL (150-450); RBC 5.23 m/uL (3.80-5.40); RDW 13.2 % (11.5-15.5); WBC 11.2 k/uL (3.8-10.6)
--- NOTE | 2022-06-27 22:00 | ED ---
General Adult HPI - General Chief complaint: Fever Stated complaint: SOB,Fever Time Seen by Provider: 06/27/22 19:05 Source: patient, RN notes reviewed Mode of arrival: ambulatory Limitations: no limitations - History of Present Illness Initial comments: 47-year-old female with past medical history significant for breast cancer presents the emergency department with right breast pain that started at approximately 2 PM this afternoon. She reports an accompanying rash that has spread from her entire right breast down her right ribs and radiates across her right flank. She denies any itchiness. She reports that is tender. She denies any new lotions or detergents. She reports that her breast has had to be aspirated multiple times in the past. Her breast surgeon is Dr. Leon. She is also complaining of accompanying fever and she shortness of breath. She describes the sensation as a chest heaviness and sharp back pain in between her shoulder blades. She denies recent travel or tobacco use. She does take hormonal replacement therapy. - Related Data Home Medications Medication Instructions Recorded Confirmed Escitalopram [Lexapro] 10 mg PO HS 10/09/20 06/27/22 Atorvastatin [Lipitor] 40 mg PO HS 10/14/20 06/27/22 Exemestane [Aromasin] 25 mg PO HS 03/16/21 06/27/22 Allergies Allergy/AdvReac Type Severity Reaction Status Date / Time amoxicillin Allergy Rash/Hives Verified 06/27/22 20:40 codeine Allergy Swelling Verified 06/27/22 20:40 Sulfa (Sulfonamide Allergy Swelling Verified 06/27/22 20:40 Antibiotics) Review of Systems ROS Statement: Those systems with pertinent positive or pertinent negative responses have been documented in the HPI. ROS Other: All systems not noted in ROS Statement are negative. Past Medical History Past Medical History: Cancer, GERD/Reflux, Hyperlipidemia Additional Past Medical History / Comment(s): right breast cancer 2020 with lumpectomy radiation, psoriasis History of Any Multi-Drug Resistant Organisms: None Reported Past Surgical History: Appendectomy, Hernia Repair, Hysterectomy Additional Past Surgical History / Comment(s): laparoscopy x4. lumpectomy right breast may 2020 Past Anesthesia/Blood Transfusion Reactions: No Reported Reaction, Motion Si ckness Past Psychological History: Anxiety Smoking Status: Former smoker Past Alcohol Use History: Occasional Past Drug Use History: None Reported - Past Family History Mother Family Medical History: Cancer Additional Family Medical History / Comment(s): lung & brain cancer General Exam Limitations: no limitations General appearance: alert, in no apparent distress Head exam: Present: atraumatic, normocephalic, normal inspection Eye exam: Present: normal appearance, PERRL, EOMI. Absent: scleral icterus, conjunctival injection, periorbital swelling ENT exam: Present: normal exam, mucous membranes moist Neck exam: Present: normal inspection. Absent: tenderness, meningismus, lymphadenopathy Respiratory exam: Present: normal lung sounds bilaterally. Absent: respiratory distress, wheezes, rales, rhonchi, stridor Cardiovascular Exam: Present: regular rate, normal rhythm, normal heart sounds. Absent: systolic murmur, diastolic murmur, rubs, gallop, clicks GI/Abdominal exam: Present: soft, normal bowel sounds. Absent: distended, tenderness, guarding, rebound, rigid Extremities exam: Present: normal inspection, full ROM, normal capillary refill. Absent: tenderness, pedal edema, joint swelling, calf tenderness Back exam: Present: normal inspection Neurological exam: Present: alert, oriented X3, CN II-XII intact Psychiatric exam: Present: normal affect, normal mood Skin exam: Present: warm, dry, intact, normal color, erythema, other (Right breast with generalized tenderness, edema and erythema. Erythematous rash that extends to right ribs and right flank ). Absent: rash Course Vital Signs 06/27/22 06/27/22 19:00 21:20 Temperature 103.3 F H 100.6 F H Pulse Rate 91 86 Respiratory 22 20 Rate Blood Pressure 95/57 102/57 O2 Sat by Pulse 94 L 94 L Oximetry - Reevaluation(s) Reevaluation #1: 06/27/22 22:00 Patient reevaluated and updated on lab work results. She is agreeable with the plan for admission. Reevaluation #2: 06/27/22 22:14 [place] discussed with [facility] Case who agrees and accepts the patient for admission EKG Findings - EKG Comments: EKG Findings:: I interpreted the following: EKG performed at 23:16. Rate 82 bpm normal sinus rhythm. NM interval 165, QRS duration 101, QT/QTc 388/427 Medical Decision Making - Medical Decision Making Was pt. sent in by a medical professional or institution (Dr., PA, AIR CONDITIONING INSTALLER SUPERVISOR, urgent care, hospital, or custodial...) When possible be specific @ -[No] Did you speak to anyone other than the patient for history (EMS, parent, family, police, friend...)? What history was obtained from this source @ -[No] Did you review nursing and triage notes (agree or disagree)? Why? @ -[I reviewed and agree with nursing and triage notes] Were old charts reviewed (outside hosp., previous admission, EMS record, old EKG, old radiological studies, urgent care reports/EKG's, custodial records)? Report findings @ -[No old charts were reviewed] Differential Diagnosis (chest pain, altered mental status, abdominal pain women, abdominal pain men, vaginal bleeding, weakness, fever, dyspnea, syncope, headache, dizziness, GI bleed, back pain, seizure, CVA, palpatations, mental health, musculoskeletal)? @ -[not applicable] EKG interpreted by me (3pts min.). @ -[As above] X-rays interpreted by me (1pt min.). @ -[None CT interpreted by me (1pt min.). @ -[None done] U/S interpreted by me (1pt. min.). @ -[None done] What testing was considered but not performed or refused? (CT, X-rays, U/S, labs)? Why? @ -[None] What meds were considered but not given or refused? Why? @ -[None] Did you discuss the management of the patient with other professionals (professionals i.e. COMPA Ontiveros, AIR CONDITIONING INSTALLER SUPERVISOR, lab, RT, psych nurse, social worker assistant, carry in worker, teacher, chief fundraising officer, disability case manager)? Give summary @ -[No] Was smoking cessation discussed for >3mins.? @ -[No] Was critical care preformed (if so, how long)? @ -[No] Were there social determinants of health that impacted care today? How? (Homelessness, low income, unemployed, alcoholism, drug addiction, transportation, low edu. Level, literacy, decrease access to med. care, [facility], rehab)? @ -[No] Was there de-escalation of care discussed even if they declined (Discuss DNR or withdrawal of care, Hospice)? DNR status @ -[No] What co-morbidities impacted this encounter? (DM, HTN, Smoking, COPD, CAD, Cancer, CVA, ARF, Chemo, Hep., AIDS, mental health diagnosis, sleep apnea, m orbid obesity)? @ -[None] Was patient admitted / discharged? Hospital course, mention meds given and route, prescriptions, significant lab abnormalities, going to OR and other pertinent info. @ -Admission. This is an 47-year-old female who presents to the emergency department with breast abscess. Patient had a thorough history and physical exam performed on the ED. Physical exam essentially unremarkable heart rate regular rate and rhythm, lungs clear to auscultation bilaterally abdomen soft and non-tender. Right breast with generalized erythema and edema and is tender to palpation. There is erythema to right ribs that radiates to right flank. Patient lab work and imaging performed which revealed: Abdomen remarkable for WBC 11.2, hemoglobin 15.918 chemistry unremarkable blood cultures are pending CT angiogram negative for any evidence of pulmonary embolism Breasts ultrasound reveals a right breast fluid collection that measures at least 6.62.8 Patient was given Toradol, tylenol, motrin, IV fluids patch with symptomatic relief. He was started on Rocephin and vancomycin in the ED. Case discussed with [facility] who agrees and accepts the patient for admission with consult to Dr. Perales . His results were discussed with him in detail who verbalized understanding and all questions were addressed. Case discussed with Dr. Urbano, [facility] who agrees with plan of care Undiagnosed new problem with uncertain prognosis? @ -[No] Drug Therapy requiring intensive monitoring for toxicity (Heparin, Nitro, Insulin, Cardizem)? @ -[No] Were any procedures done? @ -[No] Diagnosis/symptom? @ -abscess of right breast - cellulitis Acute, or Chronic, or Acute on Chronic? @ -acute Uncomplicated (without systemic symptoms) or Complicated (systemic symptoms)? @ -complicated Side effects of treatment? @ -[No] Exacerbation, Progression, or Severe Exacerbation? @ -[No] Poses a threat to life or bodily function? How? (Chest pain, [place], [place], pneumonia, PE, COPD, DKA, ARF, appy, cholecystitis, CVA, Diverticulitis, Homicidal, Suicidal, threat to staff... and all critical care pts) @ -high likelihood - Lab Data Result diagrams: 06/27/22 19:55 06/27/22 19:55 Lab Results 06/27/22 06/27/22 06/27/22 Range/Units 19:55 19:55 19:55 WBC 11.2 H (3.8-10.6) k/uL RBC 5.23 (3.80-5.40) m/uL Hgb 15.9 (11.4-16.0) gm/dL Hct 47.4 H (34.0-46.0) % MCV 90.7 (80.0-100.0) fL MCH 30.5 (25.0-35.0) pg MCHC 33.7 (31.0-37.0) g/dL RDW 13.2 (11.5-15.5) % Plt Count 191 (150-450) k/uL MPV 7.0 Neutrophils % 90 % Lymphocytes % 5 % Monocytes % 5 % Eosinophils % 0 % Basophils % 0 % Neutrophils # 10.0 H (1.3-7.7) k/uL Lymphocytes # 0.6 L (1.0-4.8) k/uL Monocytes # 0.5 (0-1.0) k/uL Eosinophils # 0.0 (0-0.7) k/uL Basophils # 0.0 (0-0.2) k/uL Sodium 135 L (137-145) mmol/L Potassium 4.0 (3.5-5.1) mmol/L Chloride 99 (98-107) mmol/L Carbon Dioxide 24 (22-30) mmol/L Anion Gap 12 mmol/L BUN 13 (7-17) mg/dL Creatinine 0.77 (0.52-1.04) mg/dL Est GFR (CKD-EPI)AfAm >90 (>60 ml/min/1.73 sqM) Est GFR (CKD-EPI)NonAf >90 (>60 ml/min/1.73 sqM) Glucose 114 H (74-99) mg/dL Plasma Lactic Acid Kit 1.6 (0.7-2.0) mmol/L Calcium 9.7 (8.4-10.2) mg/dL Total Bilirubin 0.9 (0.2-1.3) mg/dL AST 35 (14-36) U/L ALT 52 H (4-34) U/L Alkaline Phosphatase 109 (38-126) U/L Total Protein 7.8 (6.3-8.2) g/dL Albumin 4.8 (3.5-5.0) g/dL Disposition Clinical Impression: Breast mass, right, Cellulitis Disposition: ADMITTED IP TO THIS HOSP Condition: Fair Time of Disposition: 22:02
[2022-06-27] MEDS ORDERED: KETOROLAC 15 MG/ML 1 ML VIAL IVP STA (22:33)
[2022-06-27] MEDS ORDERED: NALOXONE 0.4 MG/ML 1 ML VIAL IV PRN (22:36)
[2022-06-27] MEDS ORDERED: LIDOCAINE 1% INJ 10MG/ML (30 ML VIAL-PF) SQ ONE (22:39)
[2022-06-27] MEDS: SODIUM CHLORIDE 0.9% 1,000 ML IV SCH (22:46)
--- NOTE | 2022-06-27 23:22 | CT ---
EXAMINATION TYPE: CT angio chest CT DLP: 530.2 mGycm, Automated exposure control for dose reduction was used. DATE OF EXAM: 06/27/2022 11:07 PM COMPARISON: Right breast ultrasound 06/27/2022 CLINICAL INDICATION:Female, 47 years old with history of brain/cp; SOB HX OF BREAST CA TECHNIQUE/CONTRAST: CTA scan of the thorax is performed with IV Contrast, patient injected with 65 mL of Isovue 370, pulm onary embolism protocol. MIP images are created and reviewed. FINDINGS: Pulmonary Artery: There is no evidence for a central filling defect within the pulmonary vasculature to suggest acute pulmonary embolism. Limited evaluation of the segmental and subsegmental branches se condary to bolus timing. The pulmonary artery is of normal size. Lungs/Pleura: Diffuse ground glass attenuations throughout the lungs bilaterally (series 406, image 5 7). Streaky atelectasis in the lung bases bilaterally (series 406, image 70 and 77-79). Airway: Large airways are patent. Heart: Heart is within normal limits for size.. Vasculature: No evidence of aortic aneurysm. Mediastinum: No gross evidence of adenopathy. Musculoskeletal: No acute osseous abnormalities Soft Tissues: Right breast fluid collection measures at least 6.6 x 2.8 cm (series 401, image 86). Ca lcifications versus surgical clips are noted in the periphery of the collection. Lower neck: No significant findings. Upper Abdomen: Hepatic steatosis. IMPRESSION: 1. No evidence of central pulmonary embolism. Limited evaluation of the segmental and subsegmental br anches. 2. Diffuse ground glass attenuation of the parenchyma bilaterally, this is nonspecific and may relate to atelectasis versus inflammatory process. 3. Right breast fluid collection, better characterized on targeted ultrasound from same day.
[2022-06-28] MEDS: KETOROLAC 15 MG/ML 1 ML VIAL IVP PRN ×2 (05:10→16:26)
[2022-06-28] MEDS: VANCOMYCIN 1,500 MG in SODIUM CHLORIDE 0.9% 500 ML 500 ML IVPB SCH ×2 (06:56→20:55)
[2022-06-28 07:00] LABS: Basophils % (A) 0 %; Eosinophils % (A) 0 %; HCT 43.5 % (34.0-46.0); HGB 14.3 gm/dL (11.4-16.0); Lymphocytes # (A) 0.8 k/uL (1.0-4.8); Lymphocytes % (A) 9 %; MCH 30.7 pg (25.0-35.0); MCHC 32.9 g/dL (31.0-37.0); MCV 93.2 fL (80.0-100.0); Mean Platelet Volume 7.1; Monocytes # (A) 0.4 k/uL (0-1.0); Monocytes % (A) 4 %; Neutrophils # (A) 7.9 k/uL (1.3-7.7); Neutrophils % (A) 86 %; Platelet Count 205 k/uL (150-450); RBC 4.66 m/uL (3.80-5.40); RDW 13.2 % (11.5-15.5); WBC 9.2 k/uL (3.8-10.6)
[2022-06-28 07:12] LABS: African American GFR (CKD) >90 (>60 ml/min/1.73 sqM); Anion Gap 12 mmol/L; Blood Urea Nitrogen 14 mg/dL (7-17); Carbon Dioxide 21 mmol/L (22-30); Chloride 106 mmol/L (98-107); Glucose 119 mg/dL (74-99); Non-African American GFR(CKD) >90 (>60 ml/min/1.73 sqM); Potassium 3.6 mmol/L (3.5-5.1); Sodium 139 mmol/L (137-145)
[2022-06-28] MEDS: ACETAMINOPHEN TAB 325 MG TAB PO PRN ×2 (08:35→19:31)
--- NOTE | 2022-06-28 11:07 | P.GSCN ---
History of Present Illness Consult date: 06/28/22 History of present illness: CHIEF COMPLAINT: Right breast pain and redness HISTORY OF PRESENT ILLNESS: This is a 47-year-old female with a known history of right breast cancer status post lumpectomy in May [address] Leon. Patient also is status post radiation treatment. Patient reports that she's had to have 6 seromas drained by the IR service. Patient reports yesterday she noted pain in the right breast and as the day went on a decrease in erythema swelling. She also has been having fevers as high as 103.3. White count elevated at 11.2. Patient also reports of having shortness of breath and difficulty in taking a deep breath due to the pain. She does have a mild cough. She did have a CT of the chest which showed no PE but did reveal evidence of a right breast fluid collection. Breast ultrasound pending. Surgical service consulted in regards to breast abscess. PAST MEDICAL HISTORY: See below PAST SURGICAL HISTORY: See below MEDICATIONS: See below ALLERGIES: See below SOCIAL HISTORY: No illicit drug use. REVIEW OF SYSTEMS: CONSTITUTIONAL: Denies fever or chills. HEENT: Denies blurred vision, vision changes, or eye pain. Denies hemoptysis CARDIOVASCULAR: Denies chest pain or pressure. RESPIRATORY: No shortness of breath. GASTROINTESTINAL: See HPI for pertinent findings HEMATOLOGIC: Denies bleeding disorders. GENITOURINARY: Denies any blood in urine or increased urinary frequency. SKIN: Denies pruitis. Denies rash. PHYSICAL EXAM: VITAL SIGNS: Reviewed GENERAL: Well-developed in no acute distress. HEENT: No sclera icterus. Extraocular movements grossly intact. Moist buccal mucosa. Head is atraumatic, normocephalic. No nasal drainage. ABDOMEN: Soft. Nondistended. Nontender NEUROLOGIC: Alert and oriented. Cranial nerves II through XII grossly intact. Breast: Right breast is swollen and red. Tender with palpation. Area of induration noted at the 4 o'clock position. No drainage. Patient has a large area of erythema on the right rib cage LABORATORY DATA: WBC 11.2 down to 9.2 hgb 14.3 platelets 205 Na 139 potassium 3.6 creatinine 0.73 Influenza, RSV and COVID-19 not detected IMAGING: Chest CTA no evidence of central pulmonary M07. Limited evaluation of the segmental and subsegmental branches. Diffuse groundglass attenuation of the proximal bilaterally. This is nonspecific and may relate to atelectasis versus inflammatory process. Right breast fluid collection better characterized on targeted ultrasound from the same date. report states 6.6 x 2.8 cm fluid collection ASSESSMENT: 1. Right breast cellulitis with fluid collection and concerns for abscess 2. History of right breast cancer with lumpectomy 3. Recurring right breast seromas requiring drainage PLAN: -Follow-up on breast ultrasound results -Continue antibiotics -Continue supportive care -Further recommendations forthcoming Physician Private Client Advisor note has been reviewed by physician. Signing provider agrees with the documented findings, assessment, and plan of care. I have personally seen and examined the patient, reviewed the FRET SAW OPERATOR /PAs history, exam and MDM and agree with the assessment and plan as written. Based on total visit time, I have performed more than 50% of the visit. As above: Patient with admission for mastitis right breast extending to the right chest wall. CAT scan chest reviewed. 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 I'm not convinced that that is the source of the current issue as this is present more medial and much of her erythema is extending laterally. Agree with broad-spectrum antibiotics. No surgical intervention planned at this time. If no improvement we'll plan interventional radiology consult for seroma drainage. Past Medical History Past Medical History: Cancer, GERD/Reflux, Hyperlipidemia Additional Past Medical History / Comment(s): right breast cancer 2020 with lumpectomy radiation, psoriasis History of Any Multi-Drug Resistant Organisms: None Reported Past Surgical History: Appendectomy, Hernia Repair, Hysterectomy Additional Past Surgical History / Comment(s): laparoscopy x4. lumpectomy right breast may 2020 Past Anesthesia/Blood Transfusion Reactions: No Reported Reaction, Motion Sickness Past Psychological History: Anxiety Additional Psychological History / Comment(s): occassional anxiety Smoking Status: Former smoker Past Alcohol Use History: Occasional Additional Past Alcohol Use History / Comment(s): quit smoking Mar 2020. smoked 5-10 cigarettes/day. smoked off and on since age 21. 1 glass wine q night Past Drug Use History: None Reported - Past Family History Mother Family Medical History: Cancer Additional Family Medical History / Comment(s): lung & brain cancer Medications and Allergies Home Medications Medication Instructions Recorded Confirmed Type Escitalopram [Lexapro] 10 mg PO HS 10/09/20 06/27/22 History Atorvastatin [Lipitor] 40 mg PO HS 10/14/20 06/27/22 History Exemestane [Aromasin] 25 mg PO HS 03/16/21 06/27/22 History Allergies Allergy/AdvReac Type Severity Reaction Status Date / Time amoxicillin Allergy Rash/Hives Verified 06/27/22 20:40 codeine Allergy Swelling Verified 06/27/22 20:40 Sulfa (Sulfonamide Allergy Swelling Verified 06/27/22 20:40 Antibiotics) Surgical - Exam Vital Signs Temp Pulse Resp BP Pulse Ox 103.3 F H 91 22 95/57 94 L 06/27/22 19:00 06/27/22 19:00 06/27/22 19:00 06/27/22 19:00 06/27/22 19:00 Results - Labs 06/28/22 06:02 06/28/22 06:02 Abnormal Lab Results - Last 24 Hours (Table) 06/27/22 06/27/22 06/28/22 Range/Units 19:55 19:55 06:02 WBC 11.2 H (3.8-10.6) k/uL Hct 47.4 H (34.0-46.0) % Neutrophils # 10.0 H 7.9 H (1.3-7.7) k/uL Lymphocytes # 0.6 L 0.8 L (1.0-4.8) k/uL Sodium 135 L (137-145) mmol/L Carbon Dioxide (22-30) mmol/L Glucose 114 H (74-99) mg/dL ALT 52 H (4-34) U/L 06/28/22 Range/Units 06:02 WBC (3.8-10.6) k/uL Hct (34.0-46.0) % Neutrophils # (1.3-7.7) k/uL Lymphocytes # (1.0-4.8) k/uL Sodium (137-145) mmol/L Carbon Dioxide 21 L (22-30) mmol/L Glucose 119 H (74-99) mg/dL ALT (4-34) U/L Diabetes panel 06/27/22 06/28/22 Range/Units 19:55 06:02 Sodium 135 L 139 (137-145) mmol/L Potassium 4.0 3.6 (3.5-5.1) mmol/L Chloride 99 106 (98-107) mmol/L Carbon Dioxide 24 21 L (22-30) mmol/L BUN 13 14 (7-17) mg/dL Creatinine 0.77 0.73 (0.52-1.04) mg/dL Glucose 114 H 119 H (74-99) mg/dL Calcium 9.7 9.0 (8.4-10.2) mg/dL AST 35 (14-36) U/L ALT 52 H (4-34) U/L Alkaline Phosphatase 109 (38-126) U/L Total Protein 7.8 (6.3-8.2) g/dL Albumin 4.8 (3.5-5.0) g/dL Calcium panel 06/27/22 06/28/22 Range/Units 19:55 06:02 Calcium 9.7 9.0 (8.4-10.2) mg/dL Albumin 4.8 (3.5-5.0) g/dL Pituitary panel 06/27/22 06/28/22 Range/Units 19:55 06:02 Sodium 135 L 139 (137-145) mmol/L Potassium 4.0 3.6 (3.5-5.1) mmol/L Chloride 99 106 (98-107) mmol/L Carbon Dioxide 24 21 L (22-30) mmol/L BUN 13 14 (7-17) mg/dL Creatinine 0.77 0.73 (0.52-1.04) mg/dL Glucose 114 H 119 H (74-99) mg/dL Calcium 9.7 9.0 (8.4-10.2) mg/dL Adrenal panel 06/27/22 06/28/22 Range/Units 19:55 06:02 Sodium 135 L 139 (137-145) mmol/L Potassium 4.0 3.6 (3.5-5.1) mmol/L Chloride 99 106 (98-107) mmol/L Carbon Dioxide 24 21 L (22-30) mmol/L BUN 13 14 (7-17) mg/dL Creatinine 0.77 0.73 (0.52-1.04) mg/dL Glucose 114 H 119 H (74-99) mg/dL Calcium 9.7 9.0 (8.4-10.2) mg/dL Total Bilirubin 0.9 (0.2-1.3) mg/dL AST 35 (14-36) U/L ALT 52 H (4-34) U/L Alkaline Phosphatase 109 (38-126) U/L Total Protein 7.8 (6.3-8.2) g/dL Albumin 4.8 (3.5-5.0) g/dL
--- NOTE | 2022-06-28 11:38 | P.HPIM ---
History of Present Illness 47-year-old female admitted for sepsis with the fever of 103.3 at home and elevated white count secondary to right breast cellulitis and possible abscess. Patient had a CT of the chest which ruled out pulmonary embolism but did show possible abscess on the sound of the breast is being obtained. 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 Patient didn't receive any chemotherapy patient is basically on Aromasin, and breast cancer is in remission. Patient is complaining of severe pain in the breast. REVIEW OF SYSTEMS: CONSTITUTIONAL: No fever, no malaise, no fatigue. HEENT: No recent visual problems or hearing problems. Denied any sore throat. CARDIOVASCULAR: No chest pain, orthopnea, PND, no palpitations, no syncope. PULMONARY: No shortness of breath, no cough, no hemoptysis. GASTROINTESTINAL: No diarrhea, no nausea, no vomiting, no abdominal pain. NEUROLOGICAL: No headaches, no weakness, no numbness. HEMATOLOGICAL: Denies any bleeding or petechiae. GENITOURINARY: Denies any burning micturition, frequency, or urgency. MUSCULOSKELETAL/RHEUMATOLOGICAL: Denies any joint pain, swelling, or any muscle pain. ENDOCRINE: Denies any polyuria or polydipsia. The rest of the 14-point review of systems is negative. PHYSICAL EXAMINATION: GENERAL: The patient is alert and oriented x3, not in any acute distress. Well developed, well nourished. HEENT: Pupils are round and equally reacting to light. EOMI. No scleral icterus. No conjunctival pallor. Normocephalic, atraumatic. No pharyngeal erythema. No thyromegaly. CARDIOVASCULAR: S1 and S2 present. No murmurs, rubs, or gallops. PULMONARY: Chest is clear to auscultation, no wheezing or crackles. ABDOMEN: Soft, nontender, nondistended, normoactive bowel sounds. No palpable organomegaly. MUSCULOSKELETAL: No joint swelling or deformity. EXTREMITIES: No cyanosis, clubbing, or pedal edema. NEUROLOGICAL: Gross neurological examination did not reveal any focal deficits. SKIN: Significant redness involving the entire right breast as well as right upper abdomen and there may be an abscess in the lower portion of the breast. Assessment and plan -Sepsis secondary to possible abscess and cellulitis of the right breast patient denied any history of MRSA presently on vancomycin and infectious disease will be consulted in general surgery is following the patient. Patient is on Toradol for pain -History of breast cancer lumpectomy continue with her medicine -Leukocytosis secondary to breast cancer DVT prophylaxis: Lovenox subcutaneous GI prophylaxis: Pepcid Past Medical History Past Medical History: Cancer, GERD/Reflux, Hyperlipidemia Additional Past Medical History / Comment(s): right breast cancer 2020 with lumpectomy radiation, psoriasis History of Any Multi-Drug Resistant Organisms: None Reported Past Surgical History: Appendectomy, Hernia Repair, Hysterectomy Additional Past Surgical History / Comment(s): laparoscopy x4. lumpectomy right breast may 2020 Past Anesthesia/Blood Transfusion Reactions: No Reported Reaction, Motion Sickness Past Psychological History: Anxiety Additional Psychological History / Comment(s): occassional anxiety Smoking Status: Former smoker Past Alcohol Use History: Occasional Additional Past Alcohol Use History / Comment(s): quit smoking Mar 2020. smoked 5-10 cigarettes/day. smoked off and on since age 21. 1 glass wine q night Past Drug Use History: None Reported - Past Family History Mother Family Medical History: Cancer Additional Family Medical History / Comment(s): lung & brain cancer Medications and Allergies Home Medications Medication Instructions Recorded Confirmed Type Escitalopram [Lexapro] 10 mg PO HS 10/09/20 06/27/22 History Atorvastatin [Lipitor] 40 mg PO HS 10/14/20 06/27/22 History Exemestane [Aromasin] 25 mg PO HS 03/16/21 06/27/22 History Allergies Allergy/AdvReac Type Severity Reaction Status Date / Time amoxicillin Allergy Rash/Hives Verified 06/27/22 20:40 codeine Allergy Swelling Verified 06/27/22 20:40 Sulfa (Sulfonamide Allergy Swelling Verified 06/27/22 20:40 Antibiotics) Physical Exam Vitals: Vital Signs Temp Pulse Pulse Pulse Resp BP BP 06/28/22 06:52 99.1 F 72 18 06/28/22 02:38 91/55 06/28/22 00:58 75 18 06/28/22 00:49 98.1 F 75 18 86/55 06/27/22 21:20 100.6 F H 86 20 102/57 06/27/22 19:00 103.3 F H 91 22 95/57 BP Pulse Ox 06/28/22 06:52 110/70 93 L 06/28/22 02:38 06/28/22 00:58 06/28/22 00:49 100 06/27/22 21:20 94 L 06/27/22 19:00 94 L Intake and Output 06/27/22 06/28/22 06/28/22 22:59 06:59 14:59 Other: Voiding Method Toilet Toilet # Voids 1 Weight 95.254 kg 95.254 kg Results CBC & Chem 7: 06/28/22 06:02 06/28/22 06:02 Labs: Abnormal Lab Results - Last 24 Hours (Table) 06/27/22 06/27/22 06/28/22 Range/Units 19:55 19:55 06:02 WBC 11.2 H (3.8-10.6) k/uL Hct 47.4 H (34.0-46.0) % Neutrophils # 10.0 H 7.9 H (1.3-7.7) k/uL Lymphocytes # 0.6 L 0.8 L (1.0-4.8) k/uL Sodium 135 L (137-145) mmol/L Carbon Dioxide (22-30) mmol/L Glucose 114 H (74-99) mg/dL ALT 52 H (4-34) U/L 06/28/22 Range/Units 06:02 WBC (3.8-10.6) k/uL Hct (34.0-46.0) % Neutrophils # (1.3-7.7) k/uL Lymphocytes # (1.0-4.8) k/uL Sodium (137-145) mmol/L Carbon Dioxide 21 L (22-30) mmol/L Glucose 119 H (74-99) mg/dL ALT (4-34) U/L Thrombosis Risk Factor Assmnt - Choose All That Apply Any of the Below Risk Factors Present?: Yes Each Factor Represents 1 point: Age 41-60 years Each Risk Factor Represents 2 Points: Malignancy Thrombosis Risk Factor Assessment Total Risk Factor Score: 3 Thrombosis Risk Factor Assessment Level: Moderate Risk
[2022-06-28] MEDS: FAMOTIDINE 20 MG TAB PO SCH ×2 (13:15→20:58)
[2022-06-28] MEDS: SODIUM CHLORIDE 0.9% 1,000 ML IV SCH ×2 (16:27→20:59)
--- NOTE | 2022-06-28 20:35 | P.CONS ---
History of Present Illness - Reason for Consult Consult date: 06/28/22 - History of Present Illness Patient is a 47-year-old female with a past medical history significant for breast cancer status postlumpectomy in May 2020 and has received radiation therapy postlumpectomy patient apparently did have a 6 seromas drained by IR service in the past patient now presenting to the ER ye ster afternoon for evaluation of right breast swelling and redness with redness extending to the chest wall as well as upper abdominal area patient complaining of pain to the right breast and chest wall area to be sharp almost 10 out of 10 in severity did not have any open wound or any drainage patient on presentation to the hospital did have a fever of 103.3 F did have vital of 11.2 with a left shift kidney function was normal ALT was mildly elevated did find RSV and COVID testing was negative patient did have a CT angiogram of the chest no evidence of PE diffuse groundglass attenuation of the pedicle bilaterally right breast fluid collection with concern for abscess the patient was started on vancomycin infectious disease was consulted for further management of antibiotic therapy patient has been evaluated by general surgery recommending IR drainage of the fluid collection scheduled for this afternoon Past Medical History Past Medical History: Cancer, GERD/Reflux, Hyperlipidemia Additional Past Medical History / Comment(s): right breast cancer 2020 with lumpectomy radiation, psoriasis History of Any Multi-Drug Resistant Organisms: None Reported Past Surgical History: Appendectomy, Hernia Repair, Hysterectomy Additional Past Surgical History / Comment(s): laparoscopy x4. lumpectomy right breast may 2020 Past Anesthesia/Blood Transfusion Reactions: No Reported Reaction, Motion Sickness Past Psychological History: Anxiety Additional Psychological History / Comment(s): occassional anxiety Smoking Status: Former smoker Past Alcohol Use History: Occasional Additional Past Alcohol Use History / Comment(s): quit smoking Mar 2020. smoked 5-10 cigarettes/day. smoked off and on since age 21. 1 glass wine q night Past Drug Use History: None Reported - Past Family History Mother Family Medical History: Cancer Additional Family Medical History / Comment(s): lung & brain cancer Medications and Allergies Home Medications Medication Instructions Recorded Confirmed Type Escitalopram [Lexapro] 10 mg PO HS 10/09/20 06/27/22 History Atorvastatin [Lipitor] 40 mg PO HS 10/14/20 06/27/22 History Exemestane [Aromasin] 25 mg PO HS 03/16/21 06/27/22 History Allergies Allergy/AdvReac Type Severity Reaction Status Date / Time amoxicillin Allergy Rash/Hives Verified 06/27/22 20:40 codeine Allergy Swelling Verified 06/27/22 20:40 Sulfa (Sulfonamide Allergy Swelling Verified 06/27/22 20:40 Antibiotics) Physical Exam Vitals: Vital Signs Temp Pulse Pulse Pulse Resp BP BP 06/28/22 06:52 99.1 F 72 18 06/28/22 02:38 91/55 06/28/22 00:58 75 18 06/28/22 00:49 98.1 F 75 18 86/55 06/27/22 21:20 100.6 F H 86 20 102/57 06/27/22 19:00 103.3 F H 91 22 95/57 BP Pulse Ox 06/28/22 06:52 110/70 93 L 06/28/22 02:38 06/28/22 00:58 06/28/22 00:49 100 06/27/22 21:20 94 L 06/27/22 19:00 94 L Intake and Output 06/27/22 06/28/22 06/28/22 22:59 06:59 14:59 Other: Voiding Method Toilet Toilet # Voids 1 Weight 95.254 kg 95.254 kg Results CBC & Chem 7: 06/28/22 06:02 06/28/22 06:02 Labs: Abnormal Lab Results - Last 24 Hours (Table) 06/27/22 06/27/22 06/28/22 Range/Units 19:55 19:55 06:02 WBC 11.2 H (3.8-10.6) k/uL Hct 47.4 H (34.0-46.0) % Neutrophils # 10.0 H 7.9 H (1.3-7.7) k/uL Lymphocytes # 0.6 L 0.8 L (1.0-4.8) k/uL Sodium 135 L (137-145) mmol/L Carbon Dioxide (22-30) mmol/L Glucose 114 H (74-99) mg/dL ALT 52 H (4-34) U/L 06/28/22 Range/Units 06:02 WBC (3.8-10.6) k/uL Hct (34.0-46.0) % Neutrophils # (1.3-7.7) k/uL Lymphocytes # (1.0-4.8) k/uL Sodium (137-145) mmol/L Carbon Dioxide 21 L (22-30) mmol/L Glucose 119 H (74-99) mg/dL ALT (4-34) U/L Assessment and Plan Plan: 1patient was in the hospital with sepsis in this patient with fever elevated white count source of the right breast and chest wall cellulitis and concern for fluid collection in the right breast possible abscess likely from gram-positive skin paulo such as strept and Staph aureus 2-patient with multiple antibiotic allergies that would limit the number of antibiotics safe to use 3-await IR drainage fluid should be sent for culture 4-vancomycin pharmacy to dose with a target trough of 15 while watching kidney function and Vanco trough closely. 5-marked area of the redness We will follow on clinical condition and cultures to further adjust medication if needed Thank you for this consultation we will follow the patient along with you Time with Patient: Greater than 30
[2022-06-28] MEDS: ATORVASTATIN 40 MG TAB PO SCH (20:56)
[2022-06-28] MEDS: ESCITALOPRAM 10 MG TAB PO SCH (20:56)
[2022-06-28] MEDS: NON FORMULARY DRUG (Exemestane [Aromasin] 25 MG Tablet) PO SCH (20:58)
[2022-06-29] MEDS: KETOROLAC 15 MG/ML 1 ML VIAL IVP PRN ×3 (05:32→20:47)
[2022-06-29 06:42] LABS: African American GFR (CKD) >90 (>60 ml/min/1.73 sqM); Non-African American GFR(CKD) >90 (>60 ml/min/1.73 sqM)
[2022-06-29] MEDS: VANCOMYCIN 1,500 MG in SODIUM CHLORIDE 0.9% 500 ML 500 ML IVPB SCH ×2 (08:22→20:50)
[2022-06-29] MEDS: ENOXAPARIN 40 MG/0.4 ML SYRINGE SQ SCH (08:22)
[2022-06-29] MEDS: ACETAMINOPHEN TAB 325 MG TAB PO PRN ×2 (08:23→18:47)
[2022-06-29] MEDS: FAMOTIDINE 20 MG TAB PO SCH ×2 (08:23→20:47)
--- NOTE | 2022-06-29 08:39 | US ---
ULTRASOUND GUIDED RIGHT BREAST SEROMA DRAINAGE TUBE INSERTION: CLINICAL HISTORY: Postoperative right breast seroma FINDINGS: The procedure was explained to the patient. The risks, complications, benefits and alternatives were discussed and any questions were answered. Informed consent was obtained. Patient was placed supin e on the ultrasound table and prepped and draped in the usual sterile fashion. Utilizing a 6.5 Frenc h drainage catheter trocar system was advanced under ultrasound guidance into the collection. There i s aspiration of approximately 10 cc of serous fluid. Repeat imaging demonstrated ideal placement of t he catheter and no residual fluid collection. Patient was stable throughout the procedure. All elements of maximal barrier sterile technique were utilized. IMPRESSION: 1. Successful ultrasound guided right breast seroma drainage catheter insertion.
--- NOTE | 2022-06-29 11:28 | P.PN ---
Subjective Progress Note Date: 06/29/22 CHIEF COMPLAINT: Right breast cellulitis with seroma HISTORY OF PRESENT ILLNESS: Patient is status post ultrasound-guided drainage of right breast seroma with drainage catheter placement. 10 mL of serous fluid removed. Patient does report that her pain is starting to improve. Decrease in erythema. She did have a fever of 101.3 last night. WBC 9.2 yesterday PHYSICAL EXAM: VITAL SIGNS: Reviewed. GENERAL: Well-developed in no acute distress. ABDOMEN: Soft. Nondistended. Nontender. NEUROLOGIC: Alert and oriented. Cranial nerves II through XII grossly intact. Breast: Decreased erythema of the breast. Swelling decreased. Patient is drain placed in right breast. Very minimal serosanguineous drainage. Cellulitis of the rib cage decrease erythema size and intensity ASSESSMENT: 1. Right breast seroma with cellulitis status post drainage 2. History of right breast cancer with lumpectomy 3. Recurring right breast seromas requiring drainage PLAN: -Continue antibiotics per infectious disease recommendations -Continue monitoring output -Repeat CBC in AM -Follow up on culture results Physician Insole Coverer note has been reviewed by physician. Signing provider agrees with the documented findings, assessment, and plan of care. I have personally seen and examined the patient, reviewed the FURNITURE SALESPERSON /PAs history, exam and MDM and agree with the assessment and plan as written. Based on total visit time, I have performed more than 50% of the visit. As above: Patient doing better today. Redness is improved. Pain is less. Drain was placed yesterday. Gram stain negative thus far. Continue antibiotics. Objective - Vital Signs Vital signs: Vital Signs Temp 99.1 F 06/29/22 07:42 Pulse 77 06/29/22 07:42 Resp 17 06/29/22 07:42 BP 124/78 06/29/22 07:42 Pulse Ox 91 L 06/29/22 07:42 FiO2 Intake & Output 06/28/22 06/29/22 06/29/22 18:59 06:59 18:59 Intake Total 120 500 Output Total 0 0 Balance 0 120 500 Intake: Oral 120 500 Output: Drainage 0 0 Right Breast 0 0 Other: Voiding Method Toilet Toilet Toilet # Voids 3 3 - Labs CBC & Chem 7: 06/28/22 06:02 06/29/22 05:44 Labs: Microbiology - Last 24 Hours (Table) 06/27/22 20:10 Blood Culture - Preliminary Blood 06/27/22 19:55 Blood Culture - Preliminary Blood 06/28/22 15:00 Gram Stain - Preliminary Aspirate Body Fluid Culture - Preliminary 06/28/22 15:00 Anaerobic Culture - Preliminary Breast - Right
--- NOTE | 2022-06-29 13:35 | MM ---
EXAM: US breast complete RT DATE OF EXAM: 06/27/2022 9:11 PM COMPARISON STUDIES: US and MG 01/06/22 PATIENT HISTORY: Hx of right breast cancer with right lumpectomy in May 2020. Patient states she has right breast tenderness x couple months. Hx of multiple aspirations within right breast. Tenderness and redness worse x 1 day, fever. *EC patient. RISK CALCULATION: N/A FINDINGS: A complete US of all four quadrants of the breast and retro-areolar region were reviewed. No solid masses are identified.. ASSESSMENT: Right breast, retroareolar and axillary tail regions were scanned. A complex fluid collection is identified within the right breast at the 4:00 position, 6 CFN. Collection measures 2.7 x 6.2 x 3.5 cm and contains small amount of debris and echogenic septations. No internal vascularity appreciated. Posterior acoustic enhancement noted. No suspicious findings within the remainder of the scanned right breast or axillary tail. RECOMMENDATION: Complex fluid collection within the right breast 4:00 position measures up to 6.2 cm, concerning for small abscess. COMMENTS: A clinical breast exam by your physician is recommended on an annual basis and results should be correlated with mammographic findings. This exam should not preclude additional follow-up of suspicious palpable abnormalities. Addendum Regarding the Assessment: A thin-walled fluid collection was noted at the 4:00 position within the right breast on prior examinations dated 01/06/2022 and 11/27/2020. Was previously aspirated on 03/16/2021. Addendum Regarding the Recommendation: Persistent complex fluid collection within the right breast 4:00 position measures up to 6.2 cm. Finding may represent a chronic seroma versus superimposed infection given the clinical history of erythema and fever. ADDENDUM: FINDINGS: The 6.2 x 2.5 x 2.7 cm complex fluid collection at the 4:00 position previously measured 3.6 x 3.5 x 3.3 cm on 01/06/2022. IMPRESSION: BI-RADS 4, suspicious RECOMMENDATION: Either enlarging postoperative seroma or abscess at the 4:00 position right breast corresponding to the patient's lumpectomy site. Consider surgical assessment. In addition, percutaneous aspiration and fluid analysis is recommended. Following aspiration, diagnostic mammogram right breast can be performed in one month's time. Dictated By: Xenia Maher DO 06/29/22 1416 MTDD
--- NOTE | 2022-06-29 16:39 | P.PN ---
Subjective Progress Note Date: 06/29/22 47-year-old female admitted for sepsis with the fever of 103.3 at home and elevated white count secondary to right breast cellulitis and possible abscess. Patient had a CT of the chest which ruled out pulmonary embolism but did show possible abscess on the sound of the breast is being obtained. 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 Patient didn't receive any chemotherapy patient is basically on Aromasin, and breast cancer is in remission. Patient is complaining of severe pain in the breast. 06/29/2022 Patient is evaluated today on the medical floor. Patient underwent drainage ultrasound guided of the right breast and also had a pigtail catheter placed for drainage. There is not much output from this. 10 mL drained by IR. Patient does have the area of erythema outlined and is still contained. Fever 101.3 last night. She is continued on IV antibiotics per infectious disease recommendations. Patient does report some chest pain and states it is worse with inspiration and expiration. Her computed tomography scan admission is negative for pulmonary embolism there are some scattered ground glass opacities. Review of Systems Constitutional: Denied any fatigue denied any fever. Cardio vascular: denied any chest pain, palpitations Gastrointestinal: denied any nausea, vomiting, diarrhea Pulmonary: reports shortness of breath and pleuritic chest pain Neurologic denied any new focal deficits All inpatient medications were reviewed and appropriate changes in these med ications as dictated in the interval history and assessment and plan. PHYSICAL EXAMINATION: GENERAL: The patient is alert and oriented x3, not in any acute distress. Well developed, well nourished. HEENT: Pupils are round and equally reacting to light. EOMI. No scleral icterus. No conjunctival pallor. Normocephalic, atraumatic. No pharyngeal erythema. No thyromegaly. CARDIOVASCULAR: S1 and S2 present. No murmurs, rubs, or gallops. PULMONARY: Chest is clear to auscultation, no wheezing or crackles. ABDOMEN: Soft, nontender, nondistended, normoactive bowel sounds. No palpable organomegaly. MUSCULOSKELETAL: No joint swelling or deformity. EXTREMITIES: No cyanosis, clubbing, or pedal edema. NEUROLOGICAL: Gross neurological examination did not reveal any focal deficits. SKIN: Significant redness involving the entire right breast as well as right upper abdomen drainage tube has been placed. Assessment and plan -Sepsis secondary to possible abscess and cellulitis of the right breast. Patient is status post ultra sound guided drainage and felt this to be a seroma. Drainage catheter is placed. 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 Incentive spirometer has been ordered and encouraged. Patient is on pain control medication with IV Toradol. Patient has a wound culture pending and patient has a CBC ordered for the morning. The impression and plan of care has been dictated by Cheryl Martins Nurse Practitioner as directed. Dr. Siddhartha MD I have performed a history and physical examination and medical decision making of this patient, discussed the same with the dictator, and agree with the dictators assessment and plan as written, documented as a scribe. Based on total visit time, I have performed more than 50% of this visit. Objective - Vital Signs Vital signs: Vital Signs Temp 98.3 F 06/29/22 12:27 Pulse 66 06/29/22 12:27 Resp 17 06/29/22 12:27 BP 128/85 06/29/22 12:27 Pulse Ox 94 L 06/29/22 12:27 FiO2 Intake & Output 06/28/22 06/29/22 06/29/22 18:59 06:59 18:59 Intake Total 120 750 Output Total 0 0 Balance 0 120 750 Intake: Oral 120 750 Output: Drainage 0 0 Right Breast 0 0 Other: Voiding Method Toilet Toilet Toilet # Voids 3 3 - Labs CBC & Chem 7: 06/28/22 06:02 06/29/22 05:44 Labs: Microbiology - Last 24 Hours (Table) 06/27/22 20:10 Blood Culture - Preliminary Blood 06/27/22 19:55 Blood Culture - Preliminary Blood 06/28/22 15:00 Gram Stain - Preliminary Aspirate Body Fluid Culture - Preliminary 06/28/22 15:00 Anaerobic Culture - Preliminary Breast - Right Assessment and Plan Time with Patient: Less than 30
[2022-06-29] MEDS: SODIUM CHLORIDE 0.9% 1,000 ML IV SCH (18:48)
[2022-06-29] MEDS: ATORVASTATIN 40 MG TAB PO SCH (20:47)
[2022-06-29] MEDS: ESCITALOPRAM 10 MG TAB PO SCH (20:47)
[2022-06-29] MEDS: NON FORMULARY DRUG (Exemestane [Aromasin] 25 MG Tablet) PO SCH (20:49)
[2022-06-30] MEDS: KETOROLAC 15 MG/ML 1 ML VIAL IVP PRN ×2 (03:40→12:37)
[2022-06-30] MEDS: SODIUM CHLORIDE 0.9% 1,000 ML IV SCH ×2 (04:03→17:55)
[2022-06-30] MEDS ORDERED: VANCOMYCIN TROUGH DUE 1 EACH MISC MISCELLANE ONE (07:00)
[2022-06-30 08:17] LABS: African American GFR (CKD) >90 (>60 ml/min/1.73 sqM); Non-African American GFR(CKD) >90 (>60 ml/min/1.73 sqM)
[2022-06-30] MEDS: VANCOMYCIN 1,500 MG in SODIUM CHLORIDE 0.9% 500 ML 500 ML IVPB SCH (08:29)
[2022-06-30] MEDS: FAMOTIDINE 20 MG TAB PO SCH ×2 (08:29→22:32)
[2022-06-30] MEDS: ENOXAPARIN 40 MG/0.4 ML SYRINGE SQ SCH (08:29)
[2022-06-30] MEDS: ACETAMINOPHEN TAB 325 MG TAB PO PRN ×2 (08:37→22:49)
[2022-06-30] MEDS ORDERED: IPRATROPIUM-ALBUTEROL 3 ML NEB INHALATION STA (09:57)
--- NOTE | 2022-06-30 10:24 | P.PN ---
Subjective Progress Note Date: 06/30/22 CHIEF COMPLAINT: Right breast cellulitis with seroma HISTORY OF PRESENT ILLNESS: Patient is status post ultrasound-guided drainage of right breast seroma with drainage catheter placement. 10 mL of serous fluid removed. Culture pending. Patient reports decrease in pain, swelling and redness. Patient did have another fever of 101.9 last night she does complain of cough and shortness of breath. Medicine service TELEMARKETING SUPERVISOR notified. Labs pending. No significant output through drain. PHYSICAL EXAM: VITAL SIGNS: Reviewed. GENERAL: Well-developed in no acute distress. ABDOMEN: Soft. Nondistended. Nontender. NEUROLOGIC: Alert and oriented. Cranial nerves II through XII grossly intact. Breast: Right breast swelling and redness decreasing. Decrease cellulitis changes in the right chest wall ASSESSMENT: 1. Right breast seroma with cellulitis status post drainage 2. History of right breast cancer with lumpectomy 3. Recurring right breast seromas requiring drainage PLAN: -Continue antibiotics per infectious disease recommendations -Follow up on culture results -Continue supportive care Physician Director Of Agriculture note has been reviewed by physician. Signing provider agrees with the documented findings, assessment, and plan of care. I have personally seen and examined the patient, reviewed the TELEMARKETING SUPERVISOR /PAs history, exam and MDM and agree with the assessment and plan as written. Based on total visit time, I have performed more than 50% of the visit. As above: Patient says she feels better. Little drain output from seroma site. Cultures negative thus far. Objective - Vital Signs Vital signs: Vital Signs Temp 98.8 F 06/30/22 07:00 Pulse 78 06/30/22 07:00 Resp 18 06/30/22 07:00 BP 134/85 06/30/22 07:00 Pulse Ox 91 L 06/30/22 07:00 FiO2 Intake & Output 06/29/22 06/30/22 06/30/22 18:59 06:59 18:59 Intake Total 868 Balance 868 Intake: Oral 868 Other: Voiding Method Toilet Toilet # Voids 3 1 - Labs CBC & Chem 7: 06/30/22 07:32 06/30/22 07:58 Labs: Microbiology - Last 24 Hours (Table) 06/27/22 20:10 Blood Culture - Preliminary Blood 06/27/22 19:55 Blood Culture - Preliminary Blood 06/28/22 22:51 Blood Culture - Preliminary Blood 06/28/22 15:00 Gram Stain - Preliminary Aspirate Body Fluid Culture - Preliminary
[2022-06-30 11:18] LABS: Basophils # (A) 0.03 X 10*3/uL (0.00-0.10); Basophils % (A) 0.3 %; Eosinophils # (A) 0.12 X 10*3/uL (0.04-0.35); Eosinophils % (A) 1.4 %; HCT 35.1 % (37.2-46.3); HGB 11.6 g/dL (12.0-15.0); Immature Grans, Automated 0.6 %; Lymphocytes # (A) 1.34 X 10*3/uL (0.90-5.00); Lymphocytes % (A) 15.5 %; MCH 29.8 pg (27.0-32.0); MCV 90.2 fL (80.0-97.0); Mean Platelet Volume 9.6 fL (9.5-12.2); Monocytes % (A) 6.9 %; NRBC Per 100 WBC 0 /100 WBCS (0.0-0.0); Neutrophils # (A) 6.53 X 10*3/uL (1.80-7.70); Neutrophils % (A) 75.3 %; Platelet Count 186 X 10*3/uL (140-440); RBC 3.89 X 10*6/uL (4.10-5.20); RDW 13.4 % (11.5-14.5); WBC 8.67 X 10*3/uL (4.50-10.00)
--- NOTE | 2022-06-30 12:08 | P.PN ---
Subjective Progress Note Date: 06/29/22 Principal diagnosis: Right breast and trunk cellulitis Patient is a 47-year-old female with a past medical history significant for breast cancer status postlumpectomy in May 2020 and has received radiation therapy postlumpectomy patient apparently did have a 6 seromas drained by IR service in the past patient now presenting to the ER yesterday afternoon for evaluation of right breast swelling and redness with redness extending to the chest wall , patient is status post IR drainage of what looks like a seroma with a drainage catheter placed. On today's evaluation that is 06/29/2022, the patient denies having any fevers or any chills. Discomfort to the right breast and chest wall/truncated mildly decreased, denies any cough or sputum production no abdominal pain or diarrhea Objective - Vital Signs Vital signs: Vital Signs Temp 99.1 F 06/29/22 07:42 Pulse 77 06/29/22 07:42 Resp 17 06/29/22 07:42 BP 124/78 06/29/22 07:42 Pulse Ox 91 L 06/29/22 07:42 FiO2 Intake & Output 06/28/22 06/29/22 06/29/22 18:59 06:59 18:59 Intake Total 120 500 Output Total 0 0 Balance 0 120 500 Intake: Oral 120 500 Output: Drainage 0 0 Right Breast 0 0 Other: Voiding Method Toilet Toilet Toilet # Voids 3 3 - Exam GENERAL DESCRIPTION: An elderly male lying in bed in no distress RESPIRATORY SYSTEM: Unlabored breathing , decreased breath sounds at bases HEART: S1 S2 regular rate and rhythm , ABDOMEN: Soft , no tenderness Right breast and right upper abdominal and chest wall redness has slightly decreased no drainage - Labs CBC & Chem 7: 06/30/22 07:32 06/30/22 07:58 Labs: Microbiology - Last 24 Hours (Table) 06/27/22 20:10 Blood Culture - Preliminary Blood 06/27/22 19:55 Blood Culture - Preliminary Blood 06/28/22 15:00 Gram Stain - Preliminary Aspirate Body Fluid Culture - Preliminary 06/28/22 15:00 Anaerobic Culture - Preliminary Breast - Right Assessment and Plan (1) Abscess of right breast Current Visit: Yes Status: Acute Code(s): N61.1 - ABSCESS OF THE BREAST AND NIPPLE SNOMED Code(s): 17453480 (2) Cellulitis Current Visit: Yes Status: Acute Code(s): L03.90 - CELLULITIS, UNSPECIFIED SNOMED Code(s): 981648735 Plan: 1patient was in the hospital with sepsis in this patient with fever elevated white count source of the right breast and chest wall cellulitis and concern for fluid collection in the right breast possible abscess likely from gram-positive skin paulo such as strept and Staph aureus 2-patient with multiple antibiotic allergies that would limit the number of antibiotics safe to use Patient is status post IR drainage fluid and fluid has been sent for culture 4-patient to continue with vancomycin pharmacy to dose with a target trough of 15 while watching kidney function and Vanco trough closely. Time with Patient: Less than 30
--- NOTE | 2022-06-30 12:10 | P.PN ---
Subjective Progress Note Date: 06/30/22 Principal diagnosis: Right breast and trunk cellulitis Patient is a 47-year-old female with a past medical history significant for breast cancer status postlumpectomy in May 2020 and has received radiation therapy postlumpectomy patient apparently did have a 6 seromas drained by IR service in the past patient now presenting to the ER yesterday afternoon for evaluation of right breast swelling and redness with redness extending to the chest wall , patient is status post IR drainage of what looks like a seroma with a drainage catheter placed. On today's evaluation that is 06/30/2022, the patient did spike a fever last night of 101.9F, the patient is afebrile this morning, the patient Discomfort to the right breast and chest wall/truncated has decreased in intensity, denies any cough or sputum production no abdominal pain or diarrhea Objective - Vital Signs Vital signs: Vital Signs Temp 98.8 F 06/30/22 07:00 Pulse 78 06/30/22 07:00 Resp 18 06/30/22 07:00 BP 134/85 06/30/22 07:00 Pulse Ox 91 L 06/30/22 07:00 FiO2 Intake & Output 06/29/22 06/30/22 06/30/22 18:59 06:59 18:59 Intake Total 868 Balance 868 Intake: Oral 868 Other: Voiding Method Toilet Toilet # Voids 3 1 - Exam GENERAL DESCRIPTION: An elderly male lying in bed in no distress RESPIRATORY SYSTEM: Unlabored breathing , decreased breath sounds at bases HEART: S1 S2 regular rate and rhythm , ABDOMEN: Soft , no tenderness Right breast and right upper abdominal and chest wall redness has slightly decreased no drainage - Labs CBC & Chem 7: 06/30/22 07:32 06/30/22 07:58 Labs: Microbiology - Last 24 Hours (Table) 06/27/22 20:10 Blood Culture - Preliminary Blood 06/27/22 19:55 Blood Culture - Preliminary Blood 06/28/22 22:51 Blood Culture - Preliminary Blood 06/28/22 15:00 Gram Stain - Preliminary Aspirate Body Fluid Culture - Preliminary Assessment and Plan (1) Abscess of right breast Current Visit: Yes Status: Acute Code(s): N61.1 - ABSCESS OF THE BREAST AND NIPPLE SNOMED Code(s): 26687609 (2) Cellulitis Current Visit: Yes Status: Acute Code(s): L03.90 - CELLULITIS, UNSPECIFIED SNOMED Code(s): 632747666 Plan: 1patient was in the hospital with sepsis in this patient with fever elevated white count source of the right breast and chest wall cellulitis and concern for fluid collection in the right breast possible abscess likely from gram-positive skin paulo such as strept and Staph aureus 2-patient with multiple antibiotic allergies that would limit the number of antibiotics safe to use 3Patient is status post IR drainage fluid and fluid has been sent for culture, which are currently pending 4-patient seemed to have shown clinical improvement and well continue with vancomycin pharmacy to dose with a target trough of 15 while waiting for the cultures to finalize
--- NOTE | 2022-06-30 12:34 | XR ---
EXAMINATION TYPE: XR chest 1V portable DATE OF EXAM: 06/30/2022 COMPARISON: NONE HISTORY: Shortness of breath TECHNIQUE: Single frontal view of the chest is obtained. FINDINGS: There is no focal air space opacity, pleural effusion, or pneumothorax seen. The cardiac silhouette size is within normal limits. The osseous structures are intact. Coarsened interstitium with subsegmental changes left lung base. IMPRESSION: 1. Correlate for basilar atelectasis or early infiltrate. No prior exams are available to assess for chronicity of the interstitial markings and therefore consider interstitial pneumonitis or chronic br onchitis versus chronic interstitial lung disease.
[2022-06-30] MEDS ORDERED: FUROSEMIDE 10 MG/ML 4 ML VIAL IV STA (20:49)
[2022-06-30] MEDS ORDERED: ALBUTEROL HFA INHALER INHALATION STA (20:53)
--- NOTE | 2022-06-30 21:03 | P.PN ---
Subjective 47-year-old female admitted for sepsis with the fever of 103.3 at home and elevated white count secondary to right breast cellulitis and possible abscess. Patient had a CT of the chest which ruled out pulmonary embolism but did show possible abscess on the sound of the breast is being obtained. 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 Patient didn't receive any chemotherapy patient is basically on Aromasin, and breast cancer is in remission. Patient is complaining of severe pain in the breast. 06/29/2022 Patient is evaluated today on the medical floor. Patient underwent drainage ultrasound guided of the right breast and also had a pigtail catheter placed for drainage. There is not much output from this. 10 mL drained by IR. Patient does have the area of erythema outlined and is still contained. Fever 101.3 last night. She is continued on IV antibiotics per infectious disease recommendations. Patient does report some chest pain and states it is worse with inspiration and expiration. Her computed tomography scan admission is negative for pulmonary embolism there are some scattered ground glass opacities. 06/30/2022 Patient with right breast cellulitis status post I&D with surgery team on culture is pending and currently she is covered with IV vancomycin Patient sitting comfortable in bed she states that her right breast infection is improving and cellulitis becoming less severe. However she is complaining of from some breathing difficulty and dry cough. Chest x-ray showing atelectasis versus early infiltrate versus fluid with increased interstitial markings, because there is no CHEST x-ray to compare, interstitial lung disease is to be considered however patient is not tachypneic at rest and she is saturating well on room air at 91-94 % proBNP is mildly elevated 1050. 4consult on and is pending but patient also has been treated for right breast cellulitis. She is on normal saline 75 mL/h prior to 50 mm per hour. Objective - Vital Signs Vital signs: Vital Signs Temp 98.8 F 06/30/22 07:00 Pulse 70 06/30/22 11:48 Resp 18 06/30/22 07:00 BP 134/85 06/30/22 07:00 Pulse Ox 91 L 06/30/22 07:00 FiO2 Intake & Output 06/29/22 06/30/22 06/30/22 18:59 06:59 18:59 Intake Total 868 Balance 868 Intake: Oral 868 Other: Voiding Method Toilet Toilet # Voids 3 1 - Exam GENERAL: The patient is alert and oriented x3, not in any acute distress. Well developed, well nourished. HEENT: Pupils are round and equally reacting to light. EOMI. No scleral icterus. No conjunctival pallor. Normocephalic, atraumatic. No pharyngeal erythema. No thyromegaly. CARDIOVASCULAR: S1 and S2 present. No murmurs, rubs, or gallops. -PULMONARY: Chest is clear to auscultation, no wheezing or crackles. Right breast cellulitis with a dressing in place, rest of exam is deferred to surgery team ABDOMEN: Soft, nontender, nondistended, normoactive bowel sounds. No palpable organomegaly. MUSCULOSKELETAL: No joint swelling or deformity. EXTREMITIES: No cyanosis, clubbing, or pedal edema. NEUROLOGICAL: Gross neurological examination did not reveal any focal deficits. SKIN: No rashes. no petechiae. - Labs CBC & Chem 7: 06/30/22 07:32 06/30/22 07:58 Labs: Abnormal Lab Results - Last 24 Hours (Table) 06/30/22 Range/Units 07:32 RBC 3.89 L (4.10-5.20) X 10*6/uL Hgb 11.6 L (12.0-15.0) g/dL Hct 35.1 L (37.2-46.3) % Immature Gran # 0.05 H (0.00-0.04) X 10*3/uL Microbiology - Last 24 Hours (Table) 06/27/22 20:10 Blood Culture - Preliminary Blood 06/27/22 19:55 Blood Culture - Preliminary Blood 06/28/22 22:51 Blood Culture - Preliminary Blood 06/28/22 15:00 Gram Stain - Preliminary Aspirate Body Fluid Culture - Preliminary Assessment and Plan Assessment: -Sepsis secondary to possible abscess and cellulitis of the right breast. Patient is status post ultra sound guided drainage and felt this to be a seroma. Drainage catheter is placed. 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 Continue same treatment. Continue with symptomatic treatment. Resume home medication. Monitor labs and vitals. DVT and GI prophylaxis. Further recommendations as per clinical course of the patient DVT prophylaxis: Subcutaneous Lovenox GI Prophylaxis: Pepcid Prognosis is guarded
[2022-06-30] MEDS: NON FORMULARY DRUG (Exemestane [Aromasin] 25 MG Tablet) PO SCH (22:20)
[2022-06-30] MEDS: ATORVASTATIN 40 MG TAB PO SCH (22:30)
[2022-06-30] MEDS: VANCOMYCIN 1,750 MG in SODIUM CHLORIDE 0.9% 500 ML 500 ML IVPB SCH (22:31)
[2022-06-30] MEDS: ESCITALOPRAM 10 MG TAB PO SCH (22:31)
[2022-07-01 06:58] LABS: Basophils % (A) 0 %; Eosinophils # (A) 0.1 k/uL (0-0.7); Eosinophils % (A) 2 %; HGB 11.9 gm/dL (11.4-16.0); Lymphocytes % (A) 17 %; MCH 29.4 pg (25.0-35.0); MCHC 33.1 g/dL (31.0-37.0); Mean Platelet Volume 7.9; Monocytes # (A) 0.4 k/uL (0-1.0); Monocytes % (A) 6 %; Neutrophils # (A) 4.5 k/uL (1.3-7.7); Neutrophils % (A) 72 %; Platelet Count 190 k/uL (150-450); RBC 4.04 m/uL (3.80-5.40); RDW 13.5 % (11.5-15.5); WBC 6.2 k/uL (3.8-10.6)
[2022-07-01] MEDS: ACETAMINOPHEN TAB 325 MG TAB PO PRN (07:42)
[2022-07-01] MEDS: FAMOTIDINE 20 MG TAB PO SCH (07:42)
[2022-07-01] MEDS: ENOXAPARIN 40 MG/0.4 ML SYRINGE SQ SCH (07:42)
[2022-07-01] MEDS: ALBUTEROL HFA INHALER INHALATION PRN ×3 (07:45→15:27)
[2022-07-01] MEDS: VANCOMYCIN 1,750 MG in SODIUM CHLORIDE 0.9% 500 ML 500 ML IVPB SCH (07:46)
[2022-07-01 07:48] VITALS: RESP 18
[2022-07-01 07:57] LABS: African American GFR (CKD) >90 (>60 ml/min/1.73 sqM); Anion Gap 11 mmol/L; Blood Urea Nitrogen 11 mg/dL (7-17); Calcium 9.1 mg/dL (8.4-10.2); Carbon Dioxide 23 mmol/L (22-30); Chloride 105 mmol/L (98-107); Glucose 105 mg/dL (74-99); Non-African American GFR(CKD) >90 (>60 ml/min/1.73 sqM); Sodium 139 mmol/L (137-145)
[2022-07-01 12:12] VITALS: BP 126/77; PULSE 72; TEMP 98.3
[2022-07-01 12:20] LABS: Appearance,Urine Clear (Clear); Bilirubin,Urine Negative (Negative); Blood,Urine Negative (Negative); Color,Urine Light Yellow; Glucose,Urine (UA) Negative (Negative); Ketones,Urine Negative (Negative); Leukocyte Esterase,Urine Negative (Negative); Nitrite,Urine Negative (Negative); Protein,Urine Negative (Negative); Urobilinogen,Urine <2.0 mg/dL (<2.0)
[2022-07-01] MEDS: CEPHALEXIN 500 MG CAP PO SCH ×2 (14:13→17:19)
--- NOTE | 2022-07-01 14:49 | P.PN ---
Subjective Progress Note Date: 07/01/22 CHIEF COMPLAINT: Right breast cellulitis with seroma HISTORY OF PRESENT ILLNESS: Patient is status post ultrasound-guided drainage of right breast seroma with drainage catheter placement. 10 mL of serous fluid removed. Culture pending. Patient reports that she is feeling better. She would like to be discharged home. She reports that the pain is improved. She's no longer requiring pain medication. The swelling and erythema of the breast is improved. The redness along the chest wall is also decreasing. She's had no further fevers. No output through the drain. Afebrile. WBC 6.2 PHYSICAL EXAM: VITAL SIGNS: Reviewed. GENERAL: Well-developed in no acute distress. ABDOMEN: Soft. Nondistended. Nontender. NEUROLOGIC: Alert and oriented. Cranial nerves II through XII grossly intact. Breast: Right breast swelling and redness decreasing. Decrease cellulitis changes in the right chest wall ASSESSMENT: 1. Right breast seroma with cellulitis status post drainage 2. History of right breast cancer with lumpectomy 3. Recurring right breast seromas requiring drainage PLAN: -Discharge antibiotics per ID service -Discontinue drain -Okay for discharge from surgical standpoint Physician Senior Commissary Agent note has been reviewed by physician. Signing provider agrees with the documented findings, assessment, and plan of care. I have personally seen and examined the patient, reviewed the BREASTER /PAs history, exam and MDM and agree with the assessment and plan as written. Based on total visit time, I have performed more than 50% of the visit. As above: Patient doing well today. Drain removed. She is being discharged on oral antibiotics. Follow-up with Dr. River Recio post discharge. Objective - Vital Signs Vital signs: Vital Signs Temp 98.3 F 07/01/22 11:42 Pulse 72 07/01/22 11:42 Resp 18 07/01/22 11:42 BP 126/77 07/01/22 11:42 Pulse Ox 95 07/01/22 11:42 FiO2 Intake & Output 06/30/22 07/01/22 07/01/22 18:59 06:59 18:59 Other: Voiding Method Toilet # Voids 1 2 - Labs CBC & Chem 7: 07/01/22 06:10 07/01/22 06:10 Labs: Abnormal Lab Results - Last 24 Hours (Table) 06/30/22 07/01/22 Range/Units 13:06 06:10 Glucose 105 H (74-99) mg/dL Procalcitonin 0.13 H (0.02-0.09) ng/mL Microbiology - Last 24 Hours (Table) 06/27/22 20:10 Blood Culture - Preliminary Blood 06/27/22 19:55 Blood Culture - Preliminary Blood 06/28/22 22:51 Blood Culture - Preliminary Blood 06/28/22 15:00 Gram Stain - Preliminary Aspirate Body Fluid Culture - Preliminary 06/28/22 15:00 Anaerobic Culture - Preliminary Breast - Right
[2022-07-01] MEDS ORDERED: FUROSEMIDE 40 MG TAB PO STA (16:18)
[2022-07-01] MEDS: SODIUM CHLORIDE 0.9% 1,000 ML IV SCH (16:22)
--- NOTE | 2022-07-01 23:50 | P.DS ---
Providers Date of admission: 06/27/22 21:56 Attending physician: Marybeth Salgado Consults: 06/28/22 11:12 Consult Physician Routine Consulting Provider: Chinmay Calderon Consult Reason/Comments: breat abscess, patient request dr calderon Do you want consulting provider notified?: Yes 06/28/22 11:33 Consult Physician Routine Consulting Provider: Art Torres Consult Reason/Comments: Cellulitis of the breast Do you want consulting provider notified?: Yes Primary care physician: [facility] Course: Diagnoses: -Sepsis secondary to possible abscess and surrounding cellulitis of the right breast. Patient is status post ultra sound guided drainage and felt this to be a seroma. Drainage catheter was placed. Improved -History of breast cancer lumpectomy continue with her medicine. Patient follow up with Dr. Contreras as an outpatient -Abnormal chest x-ray, asymptomatic upon discharge. Most likely fluid overload. 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 Patient had a CT of the chest which ruled out pulmonary embolism but did show possible abscess on the sound of the breast is being obtained. Patient had a history of lobectomy in the past with the lymphadenectomy. Patient didn't receive any chemotherapy patient is basically on Aromasin, and breast cancer is in remission. Patient is complaining of severe pain in the breast. Patient evaluated by ID team, and surgery team, status post drainage of the abscess/seroma. Patient was treated with IV vancomycin as per ID team. Patient will be discharged on antibiotics as per ID team, please refer to the discharge instructions. Patient showed interval improvement. Patient was eager to go home today. Patient denies any chest pain or dyspnea. Patient denies any other new symptoms. Patient also had abnormal chest x-ray most likely vascular congestion, patient received 1 dose of IV Lasix 40 mg yesterday and she felt immediate relief. Patient was instructed to follow up as an outpatient and she agrees. Problems and management plan were discussed with the patient and he verbalized understanding and acceptance Patient was found stable and can be discharged home in guarded prognosis however he needs follow-up as an outpatient. Patient was instructed to follow up with PCP Dr. Oleary within one week and patient agrees Patient also was instructed to follow up with Dr. Torres from ID team in 1-[address] Calderon from surgery team in 1-2 weeks. Also patient follow up with Dr. Contreras her oncologist Patient also instructed to follow up with presser machine for abnormal chest x-ray as an outpatient and she agrees Physical exam Gen: patient is a AAOx3, no distress CVS: S1-S2, RRR, no murmur Lungs: B/L CTA, no wheezing Abdomen: soft, no distention, no tenderness, positive bowel sounds Extremity: no leg edema or induration Time spent more than 35 minutes Patient Condition at Discharge: Fair Plan - Discharge Summary Discharge Rx Participant: No New Discharge Prescriptions: New Acetaminophen Tab [Tylenol] 650 mg PO Q6HR PRN tab PRN Reason: Fever And/ Or Pain Cephalexin [Keflex] 500 mg PO Q6HR 10 Days #40 cap Albuterol Inhaler [Ventolin Hfa Inhaler] 2 puff INHALATION RT-QID PRN #1 each PRN Reason: Shortness Of Breath Or Wheezing Continue Atorvastatin [Lipitor] 40 mg PO HS Escitalopram [Lexapro] 10 mg PO HS Exemestane [Aromasin] 25 mg PO HS Discharge Medication List Escitalopram [Lexapro] 10 mg PO HS 10/09/20 [History] Atorvastatin [Lipitor] 40 mg PO HS 10/14/20 [History] Exemestane [Aromasin] 25 mg PO HS 03/16/21 [History] Acetaminophen Tab [Tylenol] 650 mg PO Q6HR PRN tab 07/01/22 [Rx] Albuterol Inhaler [Ventolin Hfa Inhaler] 2 puff INHALATION RT-QID PRN #1 each 07/01/22 [Rx] Cephalexin [Keflex] 500 mg PO Q6HR 10 Days #40 cap 07/01/22 [Rx] Follow up Appointment(s)/Referral(s): Anirudh Cisneros MD [Primary Care Provider] - 1-2 days (Patient needs to call to make a follow up appointment ) Krys Leon MD [STAFF PHYSICIAN] - 1 Week (Patient needs to call to make a follow up appointment) Marin Bray DO [Doctor of Osteopathic Medicine] - 07/27/22 2:15 pm (lung doctor to review your chest xray) Art Torres MD [STAFF PHYSICIAN] - 07/13/22 2:15 pm Robert Contreras MD [STAFF PHYSICIAN] - 2 Weeks (your oncologist - patient needs to call and make a follow-up appointment) Patient Instructions/Handouts: Cephalexin (By mouth), Albuterol (By breathing), Cellulitis (GEN) Discharge Disposition: HOME SELF-CARE
== END 2022-07-01 17:57 | disposition home or self-care (01) | DRG 872 ==
LOC: EC 18:48 → 5NMEDONC 21:56
PROVIDERS: ADMIT Hospitalist; ATTEND Hospitalist
PROC: 0H9T3ZZ Drainage of Right Breast, Percutaneous Approach (ICD-10-PCS; principal; 2022-06-29)
DX: A41.9 Sepsis, unspecified organism (principal); J98.11 Atelectasis; L76.34 Postprocedural seroma of skin and subcutaneous tissue following other procedure; N61.1 Abscess of the breast and nipple; Z28.310 Unvaccinated for COVID-19; Z28.21 Immunization not carried out because of patient refusal; Z20.822 Contact with and (suspected) exposure to COVID-19; E87.70 Fluid overload, unspecified; F41.9 Anxiety disorder, unspecified; Z85.3 Personal history of malignant neoplasm of breast; Z87.891 Personal history of nicotine dependence; K21.9 Gastro-esophageal reflux disease without esophagitis; Z88.5 Allergy status to narcotic agent; Z88.0 Allergy status to penicillin; Z88.2 Allergy status to sulfonamides; Z79.890 Hormone replacement therapy; Z79.899 Other long term (current) drug therapy; Z80.8 Family history of malignant neoplasm of other organs or systems; Z90.710 Acquired absence of both cervix and uterus; Z92.3 Personal history of irradiation; L40.9 Psoriasis, unspecified
CPT/HCPCS: 10030; 36415; 71045; 71275; 76942; 80048; 80053; 80202; 81003; 82565; 83605; 83880; 84145; 85025; 87070; 87075; 87205; 87636; 93005; 94640; 96361; 96365; 96366; 96375; 99285

== ENCOUNTER → 2023-06-02 | Outpatient (CLI) | payer BC ==
--- NOTE | 2023-06-05 16:38 | MR ---
EXAMINATION TYPE: MR brain wo/w con DATE OF EXAM: 06/02/2023 COMPARISON: HISTORY: Headaches, dizziness, loss of vision bilaterally spells, Hx Breast cancer 2020 CONTRAST: Performed utilizing 8.5 mL intravenous Gadavist gadolinium contrast. TECHNIQUE: Multiplanar, multiecho imaging on a 3.0 Kristie magnet is performed through the brain. Stud y is performed within 24 hours of arrival to the hospital. The craniovertebral junction is normal. The pituitary is normal. Optic chiasm appears normal Diffusion-weighted imaging is performed. No abnormal hyperintensity is present to suggest an acute i ntracranial infarct or acute ischemic change. There are couple of punctate hyperintensities within the right subcortical white matter, series 601 i mage 17-18 and image 20. Findings are nonspecific . Differential diagnosis could include migraine hea daches, vasculitis, multiple sclerosis, chronic white matter ischemic-type changes. Ventricles and sulci are appropriate for the patient age. Diffuse mucosal thickening versus a left maxillary sinus. Some mild mucosal thickening is within the anterior left ethmoid air cells. There is opacification of the left frontal sinus. Air-fluid level ma y be present. Correlate for acute left frontal sinusitis. Mastoid air cells are clear. IMPRESSION: 1. Scattered punctate white matter changes within the right cerebral hemisphere. 2. Mucosal thickening left maxillary, left ethmoid, left frontal sinuses. Air-fluid levels within the left frontal sinus. Correlate for acute frontal sinusitis
== END | disposition home or self-care (01) ==
LOC: RADMRIMAIN 11:54
PROVIDERS: ATTEND Family Medicine
DX: J34.89 Other specified disorders of nose and nasal sinuses (principal); R90.82 White matter disease, unspecified
CPT/HCPCS: 70553; A9585

== ENCOUNTER → 2023-10-05 | Outpatient (CLI) | payer BC ==
[2023-10-05 07:49] VITALS: BP 108/70; PULSE 66; RESP 17; TEMP 97.9
--- NOTE | 2023-10-05 08:17 | P.GSCN ---
History of Present Illness Consult date: 10/05/23 Reason for Consult: Possible mastitis Requesting physician: Jaime Contreras History of present illness: Sulema is a 48-year-old female seen in consultation for Dr. Contreras regarding a possible mastitis. She was noted by him to have generalized erythema involving most of the inner part of the right breast and areola with small vesicles crossing to the right shoulder possibly varicella-zoster. The breast was tender to touch. She was seen by him on 09-28-2023. And started on Keflex. Of significance is the fact that the patient had a biopsy-proven right breast cancer at the 3 o'clock position in 2020. At that time she underwent a lumpectomy and sentinel node biopsy. [place] nodes were negative for cancer. Lumpectomy revealed margins were negative for invasive cancer. The invasive tumor was 2.2 cm in size with DCIS present as well. Her Oncotype score was 12 and therefore she did not have any chemotherapy. She completed a course of radiation therapy and was treated with anastrozole. She was last seen here in August 2021. The patient states one years ago she was hospitalized for a right breast mastitis she was in the hospital for 1 week. She had IV ab therapy, she was told it was a cellulites. She has had 6 seromas drained in the past. She has had a drainage catheter placed in the past. She had not had any trauma to her breast. Cultures were obtained from her hospitalization in June 2022 and cultures did not show any organisms or any growth. She was doing well until last week and developed a rash on her breast with fever and chills. She had a mammogram 1 month ago at [facility] and she was told it was fine but they want to repeat the right side in [address] Contreras when she developed the rash, and talked with ID and she was told she had shingles. She was treated with valtrex and Keflex. She states she still has inflamation of the breast. She has not seen infectious disease at this time. At this time she states she has low-grade fever and chills. She is also complaining of pain in the breast. The erythema and pain have decreased since her antibiotic treatment. She is no longer on any hormone blocking agents Note from Dr. Contreras medical oncology from 09-28-2023 reviewed concern regarding mastitis versus varicella-zoster Family history: Mother: Lung and brain cancer, she was a smoker Maternal aunt: Breast cancer A second maternal aunt: Ovarian cancer patient: right breast cancer Hormonal history: Menarche: 11 M1, breast-fed: No, age of first : 33 Hysterectomy at 41 for endometriosis no ovarues left control pills: 25 years Hormones: Negative Surgical history: Hysterectomy and 1 ovary removed Removed at another operation 3 laparoscopic exams prior to hysterectomy Appendectomy Medical History: Rheumatoid arthritis Social history: Nicotine: Used to smoke 1 pack every 2 weeks for 15 years; stopped in 2022 Alcohol: 1 glass of wine per day Drugs: Negative Review of Systems - Constitutional Reports as per HPI - EENT EENT Comment(s): At this time she needs reading glasses Eyes: denies blurred vision Ears: deny: decreased hearing, tinnitus Ears, nose, mouth and throat: Denies dysphagia - Breasts bilateral: as per HPI - Cardiovascular Denies chest pain, Denies shortness of breath - Respiratory Denies cough, Denies 7 - Gastrointestinal Reports as per HPI - Genitourinary Genitourinary: Denies dysuria, Denies hematuria Menstruation: Reports post hysterectomy, Reports postmenopausal - Musculoskeletal Musculoskeleta Comment(s): Rheumatoid Arthritis/patient is presently on methotrexate and folic acid; Dr. Garcia Dove - Integumentary Reports as per HPI - Neurological Denies headaches, Denies syncope - Psychiatric Reports anxiety, Reports depression - Endocrine Endocrine Comment(s): patient on wegvovy Reports weight change - Allergic/Immunologic Reports as per HPI Past Medical History Past Medical History: Cancer, GERD/Reflux, Hyperlipidemia Additional Past Medical History / Comment(s): right breast cancer 2020 with lump ectomy radiation, psoriasis History of Any Multi-Drug Resistant Organisms: None Reported Past Surgical History: Appendectomy, Hernia Repair, Hysterectomy Additional Past Surgical History / Comment(s): laparoscopy x4. lumpectomy right breast may 2020 Past Anesthesia/Blood Transfusion Reactions: No Reported Reaction, Motion Sickness Past Psychological History: Anxiety Additional Psychological History / Comment(s): occassional anxiety Smoking Status: Former smoker Past Alcohol Use History: Occasional Additional Past Alcohol Use History / Comment(s): quit smoking Mar 2020. smoked 5-10 cigarettes/day. smoked off and on since age 21. 1 glass wine q night Past Drug Use History: None Reported - Past Family History Mother Family Medical History: Cancer Additional Family Medical History / Comment(s): lung & brain cancer Medications and Allergies Home Medications Medication Instructions Recorded Confirmed Type Escitalopram [Lexapro] 10 mg PO HS 10/09/20 05/06/23 History Atorvastatin [Lipitor] 40 mg PO HS 10/14/20 05/06/23 History Exemestane [Aromasin] 25 mg PO HS 03/16/21 05/06/23 History Acetaminophen Tab [Tylenol] 650 mg PO Q6HR PRN tab 07/01/22 05/06/23 Rx Albuterol Inhaler [Ventolin Hfa 2 puff INHALATION RT-QID PRN #1 07/01/22 05/06/23 Rx Inhaler] each Cephalexin [Keflex] 500 mg PO Q6HR 10 Days #40 cap 07/01/22 05/06/23 Rx Semaglutide [Wegovy] 1.7 mg SQ DAILY 05/06/23 05/06/23 History Allergies Allergy/AdvReac Type Severity Reaction Status Date / Time amoxicillin Allergy Rash/Hives Verified 10/05/23 07:46 codeine Allergy Swelling Verified 10/05/23 07:46 Sulfa (Sulfonamide Allergy Swelling Verified 10/05/23 07:46 Antibiotics) Surgical - Exam - General moderate distress - Eyes normal ocular movement - ENT no hearing loss - Neck trachea midline - Respiratory normal respiratory effort, clear to auscultation - Cardiovascular Rhythm: regular Heart Sounds: normal: S1, S2 - Abdomen Abdomen: soft, non tender, no guarding, no rigid, no rebound - Musculoskeletal normal gait - Psychiatric oriented to time, oriented to person, oriented to place, speech is normal, memory intact Breast Exam: BRA: 38D Inspection: Erythema lower inner right breast, fullness at the site Palpation: Right breast: Firmness in the lower inner aspect, erythema lower inner aspect, tender to palpation at this site, no other lumps masses or nodules of concern Right axilla: No adenopathy of concern Left breast: Multi positional exam fibrocystic changes, no dominant masses or nodules of concern Left axilla: No adenopathy of concern Has no rash over her breast at this time which would be indicative of shingles. Results Impression: need mammogram results from 2023 at [facility] Plan: ultrasound of the right breast Keflex follow up tomorrow after ultrasound Directed to go to the emergency room if she develops a fever or increasing pain in her breast Following informed consent an attempt at Aspiration of seroma, the area was prepped using alcohol and an 18-gauge needle on a 20 cc syringe was inserted into the area of firmness however no fluid was obtained. CC: Dr. Cisneros
== END ==
LOC: WWCWWP 07:19
PROVIDERS: ATTEND Surgery
DX: R92.8 Other abnormal and inconclusive findings on diagnostic imaging of breast (principal); N64.4 Mastodynia; R50.9 Fever, unspecified; R21 Rash and other nonspecific skin eruption; Z92.3 Personal history of irradiation; Z48.817 Encounter for surgical aftercare following surgery on the skin and subcutaneous tissue; Z80.3 Family history of malignant neoplasm of breast; Z87.891 Personal history of nicotine dependence; Z88.0 Allergy status to penicillin; Z88.5 Allergy status to narcotic agent; Z88.2 Allergy status to sulfonamides; Z85.3 Personal history of malignant neoplasm of breast

== ENCOUNTER → 2023-10-06 | Outpatient (CLI) | payer BC ==
--- NOTE | 2023-10-06 09:36 | USB ---
Reason for Exam: Clinical finding. Patient History: Menarche at age 13. First Full-Term at age 33. Late child-bearing (after 30). Hysterectomy at age 40. Breast cancer, age 45. Previous chest radiation therapy at age 45. 05/12/2020, Lumpectomy on the Right side. 03/16/2021, Benign Cyst Aspiration on the right side. 10/20/2020, Benign Cyst Aspiration on the right side. 05/06/2020, Malignant Core Biopsy on the right side. 07/2020, Radiation Therapy on the right side. Maternal aunt had breast cancer, age 37. Technique: Method: Whole Breast Handheld. Prior Study Comparison: 03/20/2020 Screening Mammogram, [facility]. 02/09/2021 Bilateral Diagnostic Mammogram, [facility]. 01/06/2022 Bilateral MG 3D diag mammo w/cad VINOD, [facility]. Findings: The whole breast of the right breast, the axilla of the right breast and the retroareolar of the right breast were scanned. Seroma right breast at the 6:00 location 5 cm from the nipple currently measuring 5.3 x 2.7 x 3.6 cm versus prior measurement 6 x 2.7 x 3.5 cm. Correlate clinically. No solid masses identified. Overall Assessment: Benign, BI-RAD 2 Management: Diagnostic Mammogram of both breasts in 10 months. A clinical breast exam by your physician is recommended on an annual basis and results should be correlated with mammographic findings. This exam should not preclude additional follow-up of suspicious palpable abnormalities. Results were given to the patient verbally at the time of exam. Electronically signed and approved by: Manolo Chávez M.D. Radiologis
--- NOTE | 2023-10-06 09:53 | P.PN ---
Subjective Progress Note Date: 10/06/23 Sulema is a 48-year-old female seen in consultation for Dr. Contreras regarding a possible mastitis. She was noted by him to have generalized erythema involving most of the inner part of the right breast and areola with small vesicles crossing to the right shoulder possibly varicella-zoster. The breast was tender to touch. She was seen by him on 09-28-2023. And started on Keflex. Of significance is the fact that the patient had a biopsy-proven right breast cancer at the 3 o'clock position in 2020. At that time she underwent a lumpectomy and sentinel node biopsy. [place] nodes were negative for cancer. Lumpectomy revealed margins were negative for invasive cancer. The invasive tumor was 2.2 cm in size with DCIS present as well. Her Oncotype score was 12 and therefore she did not have any chemotherapy. She completed a course of radiation therapy and was treated with anastrozole. She was last seen here in August 2021. The patient states one years ago she was hospitalized for a right breast mastitis she was in the hospital for 1 week. She had IV ab therapy, she was told it was a cellulites. She has had 6 seromas drained in the past. She has had a drainage catheter placed in the past. She had not had any trauma to her breast. Cultures were obtained from her hospitalization in June 2022 and cultures did not show any organisms or any growth. She was doing well until last week and developed a rash on her breast with fever and chills. She had a mammogram 1 month ago at [facility] and she was told it was fine but they want to repeat the right side in [address] Contreras when she developed the rash, and talked with ID and she was told she had shingles. She was treated with valtrex and Keflex. She states she still has inflamation of the breast. She has not seen infectious disease at this time. At this time she states she has low-grade fever and chills. She is also complaining of pain in the breast. The erythema and pain have decreased since her antibiotic treatment. She is no longer on any hormone blocking agents Note from Dr. Contreras medical oncology from 09-28-2023 reviewed concern regarding mastitis versus varicella-zoster ultrasound of the right breast reveals a probable 6 by 4 cm seroma; this was personally reviewed and interpreted Any fever or chills at this time but does have some residual erythema at the lower inner aspect of the right breast. Examination: Lungs: Clear Heart: Regular rate and rhythm Right breast decreased erythema from yesterday there is firmness at the lower inner aspect consistent with the area of the seroma Plan: Continue Keflex Ultrasound-guided aspiration seroma with cultures to be obtained Patient to follow-up sooner any fever chills or increase in the erythema of the breast Follow-up with me in approximately 1-1/2 weeks she will follow-up sooner any questions or concerns I will be gone next week but Dr. Barfield is covering in my absence
== END | disposition home or self-care (01) ==
LOC: RADUSWWP 08:48
PROVIDERS: ATTEND Surgery
DX: N64.4 Mastodynia (principal); Z80.3 Family history of malignant neoplasm of breast

== ENCOUNTER → 2023-10-21 | Day surgery (SDC) | payer BC ==
--- NOTE | 2023-11-17 12:59 | USB ---
Findings: The current examination there is a 3.0 x 2.0 x 2.0 cm hypoechoic area with multiple septations. Involuting seroma, smaller than the previous 6 x 2.7 x 3.5 cm lesion. Given the diminished size and normal progression of the seroma, aspiration was deferred at this time. The patient's symptoms have resolved over the interval. The symptoms should recur reevaluation can be performed. Surgical consult for clinical management is recommended. ASSESSMENT: 3 - Probably Benign. Management: Surgical Consultation of the right breast. Clinical Management of the right breast. Electronically signed and approved by: Geoff Moser D.O. Radiologis
== END ==
LOC: RADUSWWP 10:04
PROVIDERS: ATTEND Surgery
DX: N63.0 Unspecified lump in unspecified breast (principal)

== ENCOUNTER → 2024-06-22 | Outpatient (CLI) | payer BC ==
[2024-06-22 10:43] VITALS: BP 122/85; PULSE 67; RESP 17; TEMP 97.7
--- NOTE | 2024-06-22 11:24 | P.PN ---
Subjective Progress Note Date: 06/22/24 Principal diagnosis: August 2020; right breast IDC [id number]+Pr+Her2-G2; treated surgery, radiation,exmestane 06-22-24 Requesting physician: Jaime Contreras History of present illness: Sulema is a 48-year-old female seen on 10-05-[address] Contreras regarding a possible mastitis. She was noted by him to have generalized erythema involving most of the inner part of the right breast and areola with small vesicles crossing to the right shoulder possibly varicella-zoster. The breast was tender to touch. She was seen by him on 09-28-2023. And started on Keflex. Of significance is the fact that the patient had a biopsy-proven right breast cancer at the 3 o'clock position in 2020. At that time she underwent a lumpectomy and sentinel node biopsy. [place] nodes were negative for cancer. Lumpectomy revealed margins were negative for invasive cancer. The invasive tumor was 2.2 cm in size with DCIS present as well. Her Oncotype score was 12 and therefore she did not have any chemotherapy. She completed a course of radiation therapy and was treated with anastrozole. She had been seen here in August 2021. The patient stated at that time one years prior she was hospitalized for a right breast mastitis she was in the hospital for 1 week. She had IV ab therapy, she was told it was a cellulites. She has had 6 seromas drained in the past. She has had a drainage catheter placed in the past. She had not had any trauma to her breast. Cultures were obtained from her hospitalization in June 2022 and cultures did not show any organisms or any growth. She was doing well until one week prior to appointment and developed a rash on her breast with fever and chills. She had a mammogram 1 month ago at [facility] and she was told it was fine but they want to repeat the right side in [address] Contreras when she developed the rash, and talked with ID and she was told she had shingles. She was treated with valtrex and Keflex. She states she still has inflammation of the breast. She has not seen infectious disease at this time. At this time she states she has low-grade fever and chills. She is also complaining of pain in the breast. The erythema and pain have decreased since her antibiotic treatment. She is no longer on any hormone blocking agents Note from Dr. Contreras medical oncology from 09-28-2023 reviewed concern regarding mastitis versus varicella-zoster An ultrasound from 10-21-23 was reviewed and a 3 by 2 by 2 cm lesion was noted with septations which was smaller in size and no aspiration was done. She comes today for evaluation. The patient states sore in her axilla bilateral . She is also concerned about the asymmetry of her breast. The left breast is at least 2 sizes larger than the right breast, this makes it very difficult for her to find any close to where causing her anxiety. She also has back pain related to the size and weight of the left breast. She has not had any recent mammograms or ultrasound. nicotine: none, stopped 4 years ago used to smoke 1/2 PPD for 20 years caffeine: 2 cups coffee/day chocolate: occasional BCP: for about 1 year at 20 hormones: exmestane, stopped 1 year ago Family history: Mother: Lung and brain cancer, she was a smoker Maternal aunt: Breast cancer A second maternal aunt: Ovarian cancer patient: right breast cancer Hormonal history: Menarche: 11 M1, breast-fed: No, age of first : 33 Hysterectomy at 41 for endometriosis no ovaries left control pills: 25 years Hormones: Negative Surgical history: Hysterectomy and 1 ovary removed Removed at another operation second ovary 3 laparoscopic exams prior to hysterectomy Appendectomy right breast lumpectomy and SNB Medical History: rheumatoid arthritis Psoriasis SVT Asymmetry of the breast causing back pain Social history: Nicotine: Used to smoke 1 pack every 2 weeks for 15 years; stopped in 2022 Alcohol: 1 glass of wine per day Drugs: Negative Review of Systems - Constitutional Reports as per HPI - EENT EENT Comment(s): At this time she needs reading glasses Eyes: denies blurred vision Ears: deny: decreased hearing, tinnitus Ears, nose, mouth and throat: Denies dysphagia - Breasts bilateral: as per HPI - Cardiovascular Denies chest pain, Denies shortness of breath - Respiratory Denies cough - Gastrointestinal Reports as per HPI - Genitourinary Genitourinary: Denies dysuria, Denies hematuria Menstruation: Reports post hysterectomy, Reports postmenopausal - Musculoskeletal Musculoskeleta Comment(s): Rheumatoid Arthritis/patient is presently on methotrexate and folic acid; Dr. Garcia Dove - Integumentary Reports as per HPI - Neurological Denies headaches, Denies syncope - Psychiatric Reports anxiety, Reports depression - Endocrine Endocrine Comment(s): patient on wegvovy Reports weight change - Allergic/Immunologic Reports as per HPI Past Medical History Past Medical History: Cancer, GERD/Reflux, Hyperlipidemia Additional Past Medical History / Comment(s): right breast cancer 2020 with lumpectomy radiation, psoriasis History of Any Multi-Drug Resistant Organisms: None Reported Past Surgical History: Appendectomy, Hernia Repair, Hysterectomy Additional Past Surgical History / Comment(s): laparoscopy x4. lumpectomy right breast may 2020 Past Anesthesia/Blood Transfusion Reactions: No Reported Reaction, Motion Sickness Past Psychological History: Anxiety Additional Psychological History / Comment(s): occassional anxiety Smoking Status: Former smoker Past Alcohol Use History: Occasional Additional Past Alcohol Use History / Comment(s): quit smoking Mar 2020. smoked 5-10 cigarettes/day. smoked off and on since age 21. 1 glass wine q night Past Drug Use History: None Reported - Past Family History Mother Family Medical History: Cancer Additional Family Medical History / Comment(s): lung & brain cancer Medications and Allergies Home Medications Medication Instructions Recorded Confirmed Type Escitalopram [Lexapro] 10 mg PO HS 10/09/20 05/06/23 History Atorvastatin [Lipitor] 40 mg PO HS 10/14/20 05/06/23 History Exemestane [Aromasin] 25 mg PO HS 03/16/21 05/06/23 History Acetaminophen Tab [Tylenol] 650 mg PO Q6HR PRN tab 07/01/22 05/06/23 Rx Albuterol Inhaler [Ventolin Hfa 2 puff INHALATION RT-QID PRN #1 07/01/22 05/06/23 Rx Inhaler] each Cephalexin [Keflex] 500 mg PO Q6HR 10 Days #40 cap 07/01/22 05/06/23 Rx Semaglutide [Wegovy] 1.7 mg SQ DAILY 05/06/23 05/06/23 History Allergies Allergy/AdvReac Type Severity Reaction Status Date / Time amoxicillin Allergy Rash/Hives Verified 10/05/23 07:46 codeine Allergy Swelling Verified 10/05/23 07:46 Sulfa (Sulfonamide Allergy Swelling Verified 10/05/23 07:46 Antibiotics) Objective - Vital Signs Vital signs: Vital Signs Temp 97.7 F 06/22/24 10:40 Pulse 67 06/22/24 10:40 Resp 17 06/22/24 10:40 BP 122/85 06/22/24 10:40 Pulse Ox 97 06/22/24 10:40 FiO2 Intake & Output 06/21/24 06/22/24 06/22/24 18:59 06:59 18:59 Weight 90.718 kg - Constitutional General appearance: Present: cooperative - EENT Eyes: Present: EOMI ENT: Present: hearing grossly normal - Neck Neck: Present: normal ROM - Respiratory Respiratory: bilateral: CTA - Cardiovascular Rhythm: regular Heart sounds: normal: S1, S2 - Integumentary Integumentary: Present: normal turgor - Musculoskeletal Musculoskeletal: Present: gait normal - Psychiatric Psychiatric: Present: A&O x's 3, appropriate affect, intact judgment & insight - Additional findings Additional findings: Breast Exam: BRA: 38D Inspection: right breast grade 3 ptosis, left breast 2 sizes larger than right breast Palpation: Right breast:: Radiation changes, no dominant masses or nodules of concern Right axilla: No adenopathy of concern Left breast: Multi positional exam fibrocystic changes, no dominant masses or nodules of concern Left axilla: No adenopathy of concern Assessment and Plan Assessment: Impression: Patient status posttreatment for right breast invasive ductal carcinoma T2 N0 M0 ER/MN positive HER2 negative G2, she underwent lumpectomy/sentinel node biopsy/radiation therapy/hormonal therapy, at this time she is no longer taking the hormonal therapy she has had bilateral oophorectomies Marked asymmetry of the breast secondary to cancer treatment making it difficult to find close to fit well, causing anxiety, causing back pain Plan: Bilateral mammogram Left breast reduction mammoplasty Continue to follow with medical and radiation oncology CC: Dana Pearce
== END ==
LOC: WWCWWP 10:17
PROVIDERS: ATTEND Surgery
DX: Z12.31 Encounter for screening mammogram for malignant neoplasm of breast (principal); C50.911 Malignant neoplasm of unspecified site of right female breast; Z85.3 Personal history of malignant neoplasm of breast; Z17.0 Estrogen receptor positive status [ER+]; Z17.32 Human epidermal growth factor receptor 2 negative status; Z17.21 Progesterone receptor positive status; Z88.5 Allergy status to narcotic agent; Z88.2 Allergy status to sulfonamides; Z88.1 Allergy status to other antibiotic agents

== ENCOUNTER → 2024-07-09 | Outpatient (CLI) | payer BC ==
--- NOTE | 2024-07-11 14:19 | MM ---
Reason for Exam: Additional evaluation requested from prior study. Last mammogram was performed 2 year(s) and 6 month(s) ago. Patient History: Menarche at age 13. First Full-Term at age 33. Late child-bearing (after 30). Hysterectomy at age 40. Breast cancer, right, age 45. Previous chest radiation therapy at age 45. 05/12/2020, Lumpectomy on the Right side. 03/16/2021, Benign Cyst Aspiration on the right side. 10/20/2020, Benign Cyst Aspiration on the right side. 05/06/2020, Malignant Core Biopsy on the right side. 10/24/2023, US discontinued breast asp RT on the right side. 07/2020, Radiation Therapy on the right side. Maternal aunt had breast cancer, age 37. Tissue Density: The breasts are heterogeneously dense, which may obscure small masses. Findings: Analyzed By CAD. Right breast surgical clips. No new suspicious masses, calcifications or distortions. Overall Assessment: Benign, BI-RAD 2 Management: Screening Mammogram of both breasts in 1 year. Results were given to the patient verbally at the time of exam. Patient should continue monthly self-breast exams. A clinical breast exam by your physician is recommended on an annual basis. This exam should not preclude additional follow-up of suspicious palpable abnormalities. Note on Elana scores and lifetime risk: 1. A Elana score greater than 3% is considered moderate risk. If this is the case, consider specialist referral to assess eligibility for a risk reducing agent. 2. If overall lifetime risk for the development of breast cancer is 20% or higher, the patient may qualify for future screening with alternating mammogram and breast MRI. [facility], , 07/09/2024 3:20 PM. Electronically signed and approved by: Marin العلي DO
== END | disposition home or self-care (01) ==
LOC: RADMAMWWP 14:48
PROVIDERS: ATTEND Surgery
DX: R92.333 Mammographic heterogeneous density, bilateral breasts (principal); Z85.3 Personal history of malignant neoplasm of breast; Z80.3 Family history of malignant neoplasm of breast
CPT/HCPCS: 77062; 77066

== ENCOUNTER → 2024-09-05 | Outpatient (CLI) | payer SELFPAY ==
--- NOTE | 2024-09-05 15:13 | P.PN ---
Subjective Progress Note Date: 09/05/24 Principal diagnosis: right breast IDC 2020 treated with lumpectoy and radiation therapy; left breast macromastia Subjective Progress Note Date: 09-05-24 Principal diagnosis: August 2020; right breast IDC [id number]+Pr+Her2-G2; treated surgery, radiation,exmestane Requesting physician: Jaime Contreras History of present illness: Sulema is a 49-year-old female seen on 10-05-[address] Contreras regarding a possible mastitis. She was noted by him to have generalized erythema involving most of the inner part of the right breast and areola with small vesicles crossing to the right shoulder possibly varicella-zoster. The breast was tender to touch. She was seen by him on 09-28-2023. And started on Keflex. Of significance is the fact that the patient had a biopsy-proven right breast cancer at the 3 o'clock position in 2020. At that time she underwent a lumpectomy and sentinel node biopsy. [place] nodes were negative for cancer. Lumpectomy revealed margins were negative for invasive cancer. The invasive tumor was 2.2 cm in size with DCIS present as well. Her Oncotype score was 12 and therefore she did not have any chemotherapy. She completed a course of radiation therapy and was treated with anastrozole. She had been seen here in August 2021. The patient stated at that time one year prior she was hospitalized for a right breast mastitis she was in the hospital for 1 week. She had IV ab therapy, she was told it was a cellulites. She has had 6 seromas drained in the past. She has had a drainage catheter placed in the past. She had not had any trauma to her breast. Cultures were obtained from her hospitalization in June 2022 and cultures did not show any organisms or any growth. She was doing well until one week prior to appointment last year and developed a rash on her breast with fever and chills. She had a mammogram 1 month prior at [facility] and she was told it was fine but they want to repeat the right side in [address] Contreras when she developed the rash, and talked with ID and she was told she had shingles. She was treated with valtrex and Keflex. S She is no longer on any hormone blocking agents Note from Dr. Contreras medical oncology from 09-28-2023 reviewed on her lawst visit concern regarding mastitis versus varicella-zoster An ultrasound from 10-21-23 was reviewed and a 3 by 2 by 2 cm lesion was noted with septations which was smaller in size and no aspiration was done She is also concerned about the asymmetry of her breast. The left breast is at least 2 sizes larger than the right breast, this makes it very difficult for her to find any clothes to fit causing her anxiety. She also has back pain related to the size and weight of the left breast. Bilateral mammogram on 07-09-24 BIRA 2 nicotine: none, stopped 5 years ago used to smoke 1/2 PPD for 20 years caffeine: 2 cups coffee/day chocolate: occasional BCP: for about 1 year at 20 hormones: exmestane, stopped 1 year ago Family history: Mother: Lung and brain cancer, she was a smoker Maternal aunt: Breast cancer A second maternal aunt: Ovarian cancer patient: right breast cancer Hormonal history: Menarche: 11 M1, breast-fed: No, age of first : 33 Hysterectomy at 41 for endometriosis no ovaries left control pills: 25 years Hormones: Negative Surgical history: Hysterectomy and 1 ovary removed Removed at another operation second ovary 3 laparoscopic exams prior to hysterectomy Appendectomy right breast lumpectomy and SNB Medical History: rheumatoid arthritis Psoriasis SVT Asymmetry of the breast causing back pain Social history: Nicotine: Used to smoke 1 pack every 2 weeks for 15 years; stopped in 2022 Alcohol: 1 glass of wine per day Drugs: Negative Review of Systems - Constitutional Reports as per HPI - EENT EENT Comment(s): At this time she needs reading glasses Eyes: denies blurred vision Ears: deny: decreased hearing, tinnitus Ears, nose, mouth and throat: Denies dysphagia - Breasts bilateral: as per HPI - Cardiovascular Denies chest pain, Denies shortness of breath - Respiratory Denies cough - Gastrointestinal Reports as per HPI - Genitourinary Genitourinary: Denies dysuria, Denies hematuria Menstruation: Reports post hysterectomy, Reports postmenopausal - Musculoskeletal Musculoskeleta Comment(s): Rheumatoid Arthritis/patient is presently on methotrexate and folic acid; Dr. Garcia Dove - Integumentary Reports as per HPI - Neurological Denies headaches, Denies syncope - Psychiatric Reports anxiety, Reports depression - Endocrine Endocrine Comment(s): patient on wegvovy Reports weight change - Allergic/Immunologic Reports as per HPI Past Medical History Past Medical History: Cancer, GERD/Reflux, Hyperlipidemia Additional Past Medical History / Comment(s): right breast cancer 2020 with lumpectomy radiation, psoriasis History of Any Multi-Drug Resistant Organisms: None Reported Past Surgical History: Appendectomy, Hernia Repair, Hysterectomy Additional Past Surgical History / Comment(s): laparoscopy x4. lumpectomy right breast may 2020 Past Anesthesia/Blood Transfusion Reactions: No Reported Reaction, Motion Sickness Past Psychological History: Anxiety Additional Psychological History / Comment(s): occassional anxiety Smoking Status: Former smoker Past Alcohol Use History: Occasional Additional Past Alcohol Use History / Comment(s): quit smoking Mar 2020. smoked 5-10 cigarettes/day. smoked off and on since age 21. 1 glass wine q night Past Drug Use History: None Reported - Past Family History Mother Family Medical History: Cancer Additional Family Medical History / Comment(s): lung & brain cancer Medications and Allergies Home Medications Medication Instructions Recorded Confirmed Type Escitalopram [Lexapro] 10 mg PO HS 10/09/20 05/06/23 History Atorvastatin [Lipitor] 40 mg PO HS 10/14/20 05/06/23 History Exemestane [Aromasin] 25 mg PO HS 03/16/21 05/06/23 History Acetaminophen Tab [Tylenol] 650 mg PO Q6HR PRN tab 07/01/22 05/06/23 Rx Albuterol Inhaler [Ventolin Hfa 2 puff INHALATION RT-QID PRN #1 07/01/22 05/06/23 Rx Inhaler] each Cephalexin [Keflex] 500 mg PO Q6HR 10 Days #40 cap 07/01/22 05/06/23 Rx Semaglutide [Wegovy] 1.7 mg SQ DAILY 05/06/23 05/06/23 History Allergies Allergy/AdvReac Type Severity Reaction Status Date / Time amoxicillin Allergy Rash/Hives Verified 10/05/23 07:46 codeine Allergy Swelling Verified 10/05/23 07:46 Sulfa (Sulfonamide Allergy Swelling Verified 10/05/23 07:46 Antibiotics) Objective - Constitutional General appearance: Present: cooperative - EENT Eyes: Present: EOMI ENT: Present: hearing grossly normal - Neck Neck: Present: normal ROM - Respiratory Respiratory: bilateral: CTA - Cardiovascular Rhythm: regular Heart sounds: normal: S1, S2 - Integumentary Integumentary: Present: normal turgor - Musculoskeletal Musculoskeletal: Present: gait normal - Psychiatric Psychiatric: Present: A&O x's 3, appropriate affect, intact judgment & insight - Additional findings Additional findings: Breast Exam: BRA: 38D Inspection: right breast grade 3 ptosis, left breast 2 sizes larger than right breast Palpation: Right breast:: Radiation changes, no dominant masses or nodules of concern Right axilla: No adenopathy of concern Left breast: Multi positional exam fibrocystic changes, no dominant masses or no dules of concern Left axilla: No adenopathy of concern Assessment and Plan Assessment: Impression: Patient status posttreatment for right breast invasive ductal carcinoma T2 N0 M0 ER/NH positive HER2 negative G2, she underwent lumpectomy/sentinel node biopsy/radiation therapy/hormonal therapy, at this time she is no longer taking the hormonal therapy she has had bilateral oophorectomies Marked asymmetry of the breast secondary to cancer treatment making it difficult to find clothes to fit well, causing anxiety, causing back pain Plan: Bilateral mammogram BIRAD 2 07-09-24 Left breast reduction mammoplasty Continue to follow with medical and radiation oncology Risk include but are not limited to bleeding, infection, reaction to the anesthetic. She understands she may have some decreased sensation to the nipple areolar complex or necrosis of the complex. She has been given the option of seeing a plastic surgeon and declined. She would like to proceed and is scheduled for a left breast reduction mammoplasty. She understands the breast will not be the exact same size but would be much closer than they are now in size. Preoperative education given to the patient Functional assessment: Arm abduction past without difficulty CC: Dana Pearce
[2024-09-05 15:25] VITALS: BP 125/79; PULSE 91; RESP 16; TEMP 98.5
== END ==
LOC: WWCWWP 14:36
PROVIDERS: ATTEND Surgery
DX: D05.11 Intraductal carcinoma in situ of right breast (principal); F41.9 Anxiety disorder, unspecified; Z17.21 Progesterone receptor positive status; Z17.32 Human epidermal growth factor receptor 2 negative status; Z85.3 Personal history of malignant neoplasm of breast; Z88.0 Allergy status to penicillin; Z88.2 Allergy status to sulfonamides; Z88.5 Allergy status to narcotic agent; Z98.890 Other specified postprocedural states

== ENCOUNTER 2024-09-18 06:30 | Day surgery (SDC) | payer SELFPAY ==
[2024-09-18] MEDS ORDERED: HYDROmorphone 0.5 MG/0.5 ML SYRINGE IVP PRN (07:00)
[2024-09-18] MEDS: IV FLUID CONTINUATION 1,000 ML IV ONE (07:00)
[2024-09-18] MEDS: LACTATED RINGERS 1,000 ML IV SCH (07:46)
[2024-09-18] MEDS: HEPARIN SODIUM,PORCINE 5,000 UNIT/ML 1 ML VIAL SQ PRN (07:46)
[2024-09-18] MEDS: DEXAMETHASONE SOD PHOSPHATE 4 MG/ML 1 ML VIAL IV ONE (07:46)
[2024-09-18] MEDS: ONDANSETRON 4 MG/2 ML VIAL IVP ONE (07:46)
[2024-09-18] MEDS: ACETAMINOPHEN TAB 500 MG TAB PO PRN (07:47)
[2024-09-18 07:51] LABS: Basophils # (A) 0.05 10*3/uL (0.00-0.10); Basophils % (A) 0.6 %; Eosinophils # (A) 0.10 10*3/uL (0.04-0.35); Eosinophils % (A) 1.1 %; HCT 40.5 % (37.2-46.3); HGB 14.0 g/dL (12.0-15.0); Lymphocytes # (A) 2.75 10*3/uL (0.90-5.00); Lymphocytes % (A) 30.6 %; MCH 31.5 pg (27.0-32.0); MCHC 34.6 g/dL (32.0-37.0); MCV 91.2 fL (80.0-97.0); Monocytes # (A) 0.69 10*3/uL (0.20-1.00); Monocytes % (A) 7.7 %; Neutrophils # (A) 5.34 10*3/uL (1.80-7.70); Neutrophils % (A) 59.3 %; Platelet Count 229 10*3/uL (140-440); RBC 4.44 10*6/uL (4.10-5.20); RDW 13.5 % (11.5-14.5); WBC 8.99 10*3/uL (4.50-10.00)
[2024-09-18 08:01] LABS: African American GFR (CKD) >90 (>60 ml/min/1.73 sqM); Anion Gap 8 mmol/L; Blood Urea Nitrogen 17 mg/dL (7-17); Calcium 9.5 mg/dL (8.4-10.2); Carbon Dioxide 24 mmol/L (22-30); Chloride 105 mmol/L (98-107); Glucose 108 mg/dL (74-99); Non-African American GFR(CKD) >90 (>60 ml/min/1.73 sqM); Sodium 137 mmol/L (137-145)
[2024-09-18 08:07] LABS: Potassium 4.5 mmol/L (3.5-5.1)
[2024-09-18] MEDS ORDERED: MIDAZOLAM 2 MG/2 ML VIAL ONE (08:36)
[2024-09-18] MEDS ORDERED: HYDROmorphone (PF) 1 MG/ML ONE (08:36)
[2024-09-18] MEDS ORDERED: PROPOFOL 10 MG/ML 20 ML VIAL IV ONE (08:36)
[2024-09-18] MEDS ORDERED: KETOROLAC 15 MG/ML 1 ML VIAL ONE (08:36)
[2024-09-18] MEDS ORDERED: fentaNYL (PF) 50 MCG/ML 2 ML AMP ONE (08:36)
[2024-09-18] MEDS ORDERED: ROCURONIUM 10 MG/ML (5 ML VIAL) IV ONE (08:36)
[2024-09-18] MEDS ORDERED: SUCCINYLCHOLINE CHLORIDE 200 MG/10 ML VIAL IV ONE (08:36)
[2024-09-18] MEDS ORDERED: LIDOCAINE 1% INJ 10MG/ML (20 ML MDV) ONE (08:36)
--- NOTE | 2024-09-18 11:55 | P.BCAON ---
Date of Procedure: 09/18/24 Preoperative Diagnosis: Asymmetry of the breast related to prior right breast surgery for cancer with lumpectomy and radiation therapy Postoperative Diagnosis: Same Procedure(s) Performed: Left breast reduction mammoplasty Anesthesia: VICENTE Surgeon: Krys Leon Estimated Blood Loss (ml): 50 IV fluids (ml): 1,300 Pathology: other (Breast tissue) Condition: stable Disposition: same day Indications for Procedure: Asymmetry of the breast related to prior cancer surgery on the right side Operative Findings: Fibrofatty breast tissue Description of Procedure: The patient is a 49-year-old female status post right breast lumpectomy and radiation therapy for breast cancer. She has marked asymmetry of the breast and therefore elected to have a left breast reduction mammoplasty. She was seen in the preoperative area where marking of the breast for the reduction mammoplasty was performed. A Smith pattern reduction with an inferior nipple pedicle was chosen. The patient was then brought to the operative suite. Following induction of anesthesia both breasts were prepped and draped in a sterile fashion. The area for the inferior pedicle was de-epithelialized. Incision was then made medial laterally and superior to the nipple areolar complex dissecting down onto the pectoralis muscle resecting that U-shaped section of tissue. The tissue was weighed and was noted to be 1.7 pounds. The superior medial and lateral flaps were mobilized. Dissection was performed in the plane deep to the subcutaneous tissue. The wound was well irrigated. After we are sure that hemostasis was attained Surgicel and powder form was placed. The area of the nipple was measured using a cookie cutter and the contralateral side was noted to be consistent with a #50 cookie cutter and the left side was measured to that site as well. After the tissue had been resected and we were sure that hemostasis was attained a #10 NGOZI drain was placed in the lateral aspect of the breast. This was secured using a nylon suture. The skin flaps were brought together and secured using interrupted 3-0 Vicryl suture. This was followed by a running 3-0 Vicryl subcu take tenia suture. This was followed by a 4-0 Monocryl subcuticular suture. The area of the nipple was then matured using the #50 cookie cutter for the pattern. The skin and subcutaneous tissue were resected. The nipple was brought out through this site. It was secured using interrupted 3-0 Vicryl sutures followed by 3-0 running subcuticular suture and a 4-0 Monocryl. Surgical glue was used on the incisions. Prior to this 20 cc of 1% lidocaine were injected into the incision site. The patient tolerated the procedure in stable condition. All instrument and sponge counts were correct at the end of the case. A sterile dressing was applied. Patient was given a surgical bra.
[2024-09-18] MEDS: LIDOCAINE 1% INJ 10MG/ML (20 ML MDV) SQ ONE (12:09)
[2024-09-18 13:16] VITALS: TEMP 97
[2024-09-18 13:25] VITALS: RESP 16
[2024-09-18 14:29] VITALS: BP 151/87; PULSE 73
== END 2024-09-18 14:48 | disposition home or self-care (01) ==
LOC: OR 06:30
PROVIDERS: ATTEND Surgery
DX: N60.12 Diffuse cystic mastopathy of left breast (principal); N64.89 Other specified disorders of breast; Z85.3 Personal history of malignant neoplasm of breast
CPT/HCPCS: 88305; 80048; 85025; 19318; J2250; J0330; J1644; J1100; J0690; J2405; J2003; J3010; J1171; J1885; J2704

== ENCOUNTER → 2024-09-27 | Outpatient (CLI) | payer SELFPAY ==
[2024-09-27 11:57] VITALS: BP 134/81; PULSE 59; RESP 18; TEMP 98
--- NOTE | 2024-09-27 12:05 | P.BCPO ---
Progress Note - Text Progress Note Date: 09/27/24 Sulema is status post left breast reduction mammoplasty on 09-18-24. Her pathology was benign breast tissue and skin. It weighed 842 gm. She has less than 40 cc/day from the NGOZI drain it is serous in nature. The breasts are symmetric in their size. Examination: Incision: Clean and dry some scabbing at the trifurcation point at the lower aspect of the vertical limb. The patient has some minimal erythema at the NGOZI drain site Lungs: Clear Heart: Regular rate and rhythm Impression: Patient doing well postoperative Plan: DC NGOZI drain Follow-up in 2 weeks Follow-up sooner any questions or concerns Post Op Education - Post Op Education Post Op Education Provided Date: 09/27/24 - Functional Assessment Performed?: Yes (passed arm abduction) Path Report - Was patient given path report? Path Report Date Given: 09/27/24
== END ==
LOC: WWCWWP 10:51
PROVIDERS: ATTEND Surgery
DX: Z48.89 Encounter for other specified surgical aftercare (principal); Z98.86 Personal history of breast implant removal; Z88.1 Allergy status to other antibiotic agents; Z88.2 Allergy status to sulfonamides; Z88.5 Allergy status to narcotic agent